=== PATIENT | female | born 1985 | race Caucasian/White ===

== ENCOUNTER → 2022-06-28 | Outpatient (CLI) | payer OTHER, SELFPAY ==
--- NOTE | 2022-06-28 12:02 | BI_ITS ---
MAMMOGRAPHY - BILATERAL SCREENING REASON FOR EXAM: Female, 37 years old. Routine annual screening examination. PERTINENT HISTORY: Mother with breast cancer. Grandmother with breast cancer. TECHNIQUE: Digital bilateral breast kwan (3D mammographic acquisition) in the CC and MLO projections. 2-D mediolateral oblique (MLO) and craniocaudad (CC) views of both breasts were obtained. CAD: Full Field Digital Mammography with Computer Added Detection was performed. COMPARISON: Comparison is made with prior abdomen examination 06/22/2021. FINDINGS: Breast Composition: The breasts are extremely dense, which lowers the sensitivity of mammography. There are no dominant masses or suspicious calcifications. Stable small benign appearing bilateral axillary lymph nodes. No other significant abnormalities are identified. There has been no significant change since the prior study. BI/SCRN MAMM (CAD)W/KWAN BILAT IMPRESSION: Stable bilateral screening mammogram. Yearly follow-up mammogram recommended. (A) ASSESSMENT CATEGORY: BIRADS Category 2: Benign. A letter regarding these results will be sent to the patient by the facility within 30 days. Approximately 10% of breast cancers are not detected by mammography. A normal mammogram should not delay biopsy of a clinically suspicious abnormality. [id number] Electronically Signed: Sravan Mandel MD at 11:02 EST ,
== END | disposition home or self-care (01) ==
LOC: OPBI 11:59
PROVIDERS: PCP Internal Medicine; Referring Provider Nurse Practitioner Women's Health; Visit Provider Nurse Practitioner Women's Health
DX: Z12.31 Encounter for screening mammogram for malignant neoplasm of breast (principal)
CPT/HCPCS: 77063; 77067

== ENCOUNTER → 2022-10-26 | Outpatient (CLI) | payer BC, SELFPAY ==
--- NOTE | 2022-10-26 12:49 | MRI_ITS ---
STUDY: BILATERAL BREAST MR WITHOUT AND WITH CONTRAST REASON FOR EXAM: Female, 37 years old. Family history of breast cancer. Screening. TECHNIQUE: Multi-sequence multi-echo imaging of both breasts was performed with a dedicated breast coil. T1-weighted and T2-weighted images were performed before the administration of contrast. T1-weighted images were also performed after the intravenous administration of 13cc of Dotarem contrast. COMPARISON: Mammograms dated October 26, 2022 and 10/17/2018. FINDINGS: RIGHT BREAST: Homogeneously dense breast tissue which may obscure small masses. Moderate background enhancement. No abnormal enhancing masses or areas of non-mass enhancement in the right breast. LEFT BREAST: Homogeneously dense breast tissue which may obscure small masses. Moderate background enhancement. No abnormal enhancing masses or areas of non-mass enhancement in the right breast. No enlarged or abnormal lymph nodes. No abnormality in the visualized regions of the chest or liver. MRI/Breast Bilateral W/O and W IMPRESSION: No abnormality on the breast MRI with contrast. Alternating screening mammogram and breast MRI with contrast: For surveillance would be appropriate. CATEGORY: BIRADS Category 2: Benign. A letter regarding these results will be sent to the patient by the facility within 30 days. Electronically Signed: Alek Shay, at 13:14 EST ,
== END | disposition home or self-care (01) ==
PROVIDERS: PCP Internal Medicine; Referring Provider Nurse Practitioner Women's Health; Visit Provider Nurse Practitioner Women's Health
DX: Z12.31 Encounter for screening mammogram for malignant neoplasm of breast (principal); Z80.3 Family history of malignant neoplasm of breast
CPT/HCPCS: 77049; A9575; A4216; C8908

== ENCOUNTER → 2023-02-22 | Outpatient (CLI) | payer BC, SELFPAY | END | disposition home or self-care (01) | PROVIDERS: PCP Internal Medicine; Referring Provider Physician Assistant; Visit Provider Physician Assistant | DX: R30.0 Dysuria (principal) | CPT/HCPCS: 87077; 87086; 87088; 87186 ==

== ENCOUNTER → 2023-04-07 | Outpatient (CLI) | payer BC, SELFPAY ==
[2023-04-07 12:09] LABS: Absolute Lymphocyte Count 1.94 X10^3/uL (0.83-4.51); Absolute Neutrophil Count 3.7 X10^3/uL (2.0-7.7); Basophil# 0.05 X10^3/uL; Basophil% 0.8 % (0-1); Eosinophil# 0.15 X10^3/uL; Eosinophils% 2.4 % (0-5); Hematocrit 41.1 % (37-47); Hemoglobin 13.1 g/dL (12.0-15.0); Lymphocyte # 1.94 X10^3/ul (0.83-4.51); Lymphocyte % 30.6 % (19-41); Mean Corp Hgb Conc 31.9 g/dL (32-36); Mean Corpuscular Hgb 28.7 pg (27.0-32.0); Mean Corpuscular Volume 89.9 fL (81-99); Mean Platelet Vol. 11.2 fl (6.2-12.0); Monocyte# 0.45 X10^3/uL; Monocyte% 7.1 % (0-10); NRBC Flagged by Analyzer 0 % (0-5); Neutrophil # 3.74 X10^3/uL (2.7-7.7); Neutrophil % 58.8 % (47-70); Platelet Count 264 K/mm3 (150-450); RBC Distribution Width CV 14.3 % (11.6-14.6); Red Blood Count 4.57 M/mm3 (4.2-5.4); White Blood Count 6.4 K/mm3 (4.4-11.0)
[2023-04-07 12:33] LABS: ALB/GLOB Ratio 0.8 RATIO (0.9-2.4); AST(SGOT) 12 U/L (15-37); Alanine Aminotransfer ALT/SGPT 18 U/L (13-56); Albumin, Serum 3.2 g/dL (3.2-5.0); Alkaline Phosphatase 76 U/L (45-117); Anion Gap 4 (5-15); BUN 8 mg/dL (7-18); BUN/Creat Ratio 9.5 RATIO (10-20); Calcium,Total 8.4 mg/dL (8.5-10.1); Chloride 107 mmol/L (98-107); Cholesterol 177 mg/dL (200); Creatinine, Serum 0.84 mg/dL (0.55-1.02); EST Glomerular Filtration Rate 81 mL/min (>60); Est Glom Filt Rate - Afr Amer 98 mL/min (>60); Globulin 3.9 g/dL (2.2-4.2); Glucose 93 mg/dL (74-106); High Density Lipoprotein 47 mg/dL; Potassium 3.8 mmol/L (3.5-5.1); Protein, Total 7.1 g/dL (6.4-8.2); Sodium Level 138 mmol/L (136-145); Thyroid Stim Hormone (TSH) 2.56 uIU/mL (0.358-3.74); Triglycerides 198 mg/dL; Very Low Density Lipoprotein 40 mg/dL (5-40)
[2023-04-07 12:40] LABS: Vitamin D,25 Hydroxy 43.8 ng/mL
[2023-04-12 00:07] LABS: Clam <0.10 kU/L (Class 0); Codfish <0.10 kU/L (Class 0); Corn <0.10 kU/L (Class 0); Egg, White <0.10 kU/L (Class 0); Milk (Cow) 0.11 kU/L (Class 0/I); Peanut <0.10 kU/L (Class 0); SCALLOP <0.10 kU/L (Class 0); SESAME SEED <0.10 kU/L (Class 0); Shrimp <0.10 kU/L (Class 0); Soybean <0.10 kU/L (Class 0); Walnut, (Food) <0.10 kU/L (Class 0); Wheat <0.10 kU/L (Class 0)
== END | disposition home or self-care (01) ==
LOC: BIMLAB 08:38
PROVIDERS: PCP Internal Medicine; Referring Provider Internal Medicine; Visit Provider Internal Medicine
DX: K90.49 Malabsorption due to intolerance, not elsewhere classified (principal); R00.2 Palpitations; E78.2 Mixed hyperlipidemia; Z86.39 Personal history of other endocrine, nutritional and metabolic disease
CPT/HCPCS: 36415; 80053; 80061; 82306; 84443; 85025; 86003

== ENCOUNTER → 2023-07-21 | Outpatient (CLI) | payer BC, SELFPAY ==
--- NOTE | 2023-07-21 08:49 | ECHOD_ITS ---
Reason For Study: palps Procedure This was a 2D Doppler, Color Flow transthoracic echocardiogram. Exam performed in department. Left Ventricle Normal LV size. Left ventricular systolic function is normal. The estimated ejection fraction is 64 %. Stage 1 diastolic dysfunction. No regional wall motion abnormalities noted. Right Ventricle Normal RV size. Normal systolic function. Atria Normal left atrium. Normal right atrium. Mitral Valve Normal mitral valve. Tricuspid Valve Normal tricuspid valve. Aortic Valve Normal aortic valve. Trisinus/trileaflet aortic valve. Pulmonic Valve Normal pulmonic valve. Great Vessels Normal aortic root. The pulmonary artery is normal size. Normal inferior vena cava. Pericardium/Pleural No pericardial effusion. MMode/2D Measurements & Calculations LVIDd: 4.3 cm IVSd: 0.92 cm Ao root diam: 2.7 cm LVIDs: 3.0 cm LVPWd: 0.99 cm RVDd: 2.8 cm FS: 31.5 % LAV(MOD-bp): 41.1 ml LVAd ap4: 25.5 cm2 LVAd ap2: 26.4 cm2 LAV(MOD-bp) Indexed: 24.0 ml/m2 LVLd ap4: 7.8 cm LVLd ap2: 8.3 cm LAV(MOD-sp2): 30.2 ml EDV(MOD-sp4): 69.0 ml EDV(MOD-sp2): 71.9 ml LAV(MOD-sp4): 48.8 ml EDV(sp4-el): 70.4 ml EDV(sp2-el): 71.5 ml LVAs ap4: 14.2 cm2 LVAs ap2: 15.1 cm2 LVLs ap4: 6.7 cm LVLs ap2: 7.1 cm ESV(MOD-sp4): 26.1 ml ESV(MOD-sp2): 27.0 ml ESV(sp4-el): 25.7 ml ESV(sp2-el): 27.3 ml EF(MOD-sp4): 62.1 % EF(MOD-sp2): 62.4 % EF(sp4-el): 63.5 % SV(MOD-sp4): 42.8 ml SV(MOD-sp2): 44.8 ml SV(sp4-el): 44.7 ml LA dimension(2D): 3.1 cm LA A4 area: 17.5 cm2 RA A4 area: 11.1 cm2 TAPSE: 2.0 cm Time Measurements MV dec time: 0.15 sec Doppler Measurements & Calculations MV E max rogers: 77.9 cm/sec Lat Peak E' Rogers: 10.1 cm/sec Med Peak E' Rogers: 10.1 cm/sec MV A max rogers: 83.1 cm/sec E/E' lat: 7.7 E/E' med: 7.7 MV E/A: 0.94 MV dec slope: 522.0 cm/sec2 Ao V2 max: 152.2 cm/sec LV V1 max: 122.2 cm/sec Ao max P.3 mmHg LV V1 max P.0 mmHg Ao V2 mean: 106.1 cm/sec LV V1 mean P.4 mmHg Ao mean P.1 mmHg LV V1 mean: 86.4 cm/sec Ao V2 VTI: 33.5 cm LV V1 VTI: 27.0 cm AV (velocity ratio): 0.80 PA V2 max: 103.3 cm/sec ECHO/Echo Complete Interpretation Summary Normal LV size. Left ventricular systolic function is normal. The estimated ejection fraction is 64 %. Stage 1 diastolic dysfunction. Ordering Physician: Kai Trimble Referring Physician: Hansa Brooks Performed By: Katerin Carpenter RDCS
--- NOTE | 2023-07-21 09:44 | BI_ITS ---
MAMMOGRAPHY - BILATERAL SCREENING REASON FOR EXAM: Female, 38 years old. Routine annual screening examination. PERTINENT HISTORY: Mother with breast cancer. Grandmother with breast cancer. TECHNIQUE: Digital bilateral breast kwan (3D mammographic acquisition) in the CC and MLO projections. 2-D mediolateral oblique (MLO) and craniocaudad (CC) views of both breasts were obtained. CAD: Full Field Digital Mammography with Computer Added Detection was performed. COMPARISON: Comparison is made with prior study dated June 28, 2022 and prior MRI of the breasts dated October 26, 2022. FINDINGS: Breast Composition: The breasts are extremely dense, which lowers the sensitivity of mammography. There are no dominant masses or suspicious calcifications. Stable small bilateral axillary lymph nodes. No other significant abnormalities are identified. There has been no significant change since the prior study. BI/SCRN MAMM (CAD)W/KWAN BILAT IMPRESSION: Stable bilateral screening mammogram. Yearly follow-up mammogram recommended. (A) ASSESSMENT CATEGORY: BIRADS Category 2: Benign. A letter regarding these results will be sent to the patient by the facility within 30 days. Approximately 10% of breast cancers are not detected by mammography. A normal mammogram should not delay biopsy of a clinically suspicious abnormality. [id number] Electronically Signed: Sravan Mandel MD at 9:38 EST ,
== END | disposition home or self-care (01) ==
PROVIDERS: PCP Internal Medicine; Referring Provider Nurse Practitioner Women's Health; Visit Provider Internal Medicine Cardiovascular Disease
DX: Z12.31 Encounter for screening mammogram for malignant neoplasm of breast (principal); R00.2 Palpitations
CPT/HCPCS: 77063; 77067; 93306

== ENCOUNTER 2023-08-18 06:17 | Day surgery (SDC) | payer BC, SELFPAY ==
[2023-08-18 06:40] VITALS: BP 117/85; PULSE 82; RESP 16; TEMP 36.9; O2SAT 100; BMI 26.1
[2023-08-18] MEDS: Lactated Ringers 1,000 ML 15 ML IV (06:45)
--- NOTE | 2023-08-18 07:24 | PCM.HP.BLA ---
History and Physical Date of Admission: 08/18/23 Date of Service: 05/09/23 MR#: [id number] Acct: [id number] Name: GREY DC Rep #: [id number] : 1985 Provider: Dr. Marvin Lopez MD Age/Sex: 38/F Location: [facility] Status: Signed Intake Vital Signs 04/06/2308:59 05/09/2312:53 Height 5 ft 5 in 5 ft 3 in Weight: 150 lb 4 oz 150 lb BMI 25.0 26.5 BP 122/92 H 149/87 H Blood Pressure Location Lt brachial Rt brachial Position Sitting Sitting Respiration 18 16 Pulse 80 84 Pulse Source Monitor Monitor Temp 96.1 F L 97.3 F L Temp Source Temporal Tympanic Pulse Oximetry (%) 99 Oxygen Delivery Method room air Intake Visit Reasons: COLONOSCOPY Chief Complaint: establish care Allergies latex Allergy (Mild, Verified 05/09/23 12:54) Rashciprofloxacin [From Cipro] Allergy (Verified 05/09/23 12:54) Othergluten Adverse Reaction (Intermediate, Verified 05/09/23 12:54) Hives Medications cetirizine 10 mg capsule (Zyrtec) 10 mg PO DAILY PRN 09/12/22 [History Confirmed 05/09/23] levonorgestrel-ethinyl estradiol 0.1 mg-20 mcg tablet (Aviane) 1 tab PO QDAY #84 tabs 09/12/22 [Rx Confirmed 05/09/23] ibuprofen 200 mg capsule 200 mg PO Q6H PRN 12/29/22 [History Confirmed 05/09/23] albuterol sulfate 90 mcg/actuation aerosol inhaler gm inhalation 01/23/23 [History Confirmed 05/09/23] PFSH Medical History Allergies Anemia Asthma Colonoscopy planned (07/28/18) Family history of breast cancer Family history of breast cancer in mother Family history of colon cancer in father Family history of ovarian cancer FHx: migraine headaches Hematuria Hives Hx: UTI (urinary tract infection) Irritable bowel syndrome Kidney stones Vitamin deficiency Surgical History History of delivery History of tubal ligation Hx of tonsillectomy Family History Father Heart disease Colon cancer, Onset Age: 43 Diabetes Myocardial infarction HypertensionMother Breast cancer, Onset Age: 50 Alcoholism Anxiety Cancer Depression STD (female) Suicide attemptGrandmother , due to breast cancer Breast cancer, Onset Age: 50 paternal grandmother Leukemia CancerGrandfather Heart disease Colon cancer, Onset Age: 50 paternal grandfather HypertensionGrandmother , due to breast cancer Breast cancer, Onset Age: 45 maternal grandmother CancerGrandfather , due to colon cancer Colon cancer, Onset Age: 62 Maternal Grandfather Myocardial infarction HypertensionBrother MelanomaSon SeizuresOther Arthritis CVA (cerebral vascular accident) High cholesterol Social History adopted: No household members: spouse and children housing: house number of children: 2 current occupational status: employed 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 They are referred for surgical consultation from Dr. Sawyer. Given her family history, patient has had prior colonoscopy in 2018. She states the results of the prior colonoscopy including finding of small internal hemorrhoids, but given her family history there was a recommended interval for follow-up was 5 years. They describe their bowel habits as occasionally characterized with loose stool, but more recently she has experienced constipation. They have approximately 1 bowel movement per day, but recently states that it has been 2 days without a bowel movement. Mrs. Dc denies any straining and tries to limit her toilet time. They initially denied noticing recent bleeding or dark stools, but later did confess that they have noticed some hemorrhoid bleeding with single spotting of the tissue paper 1-2 times per month. They do not regularly take fiber supplements since she has a gluten sensitivity and is unsure which products are made with wheat. They do consume significant fiber in their regular diet and she states that they are consciously transitioning her diet to all natural foods as a family. Patient, as above, does have a family history of colon cancer. She relates that her father was diagnosed at the age of 43 (in 2006) required a colon resection with a colostomy for 6 months before reversal. She states that he became symptomatic with some blood on his stool prior to this diagnosis. She initially characterizes this as a rectal cancer, but then states that it was a colon and rectal cancer. Beyond her father she notes a diagnosis of rectal cancer and paternal grandfather was diagnosed in his 50s. She states that he underwent surgery but no adjuvant therapy and lived into his 80s. (There also appears to be a strong history for breast cancer, familially?speaking). The patient's weight is stable. The patient is not prescribed anticoagulants/blood thinners. Relevant prior abdominal surgical history includes: 2 prior cesareans Patient does have a significant history of GERD and heartburn. Patient notes that she had roaring heartburn during her 2 pregnancies. She states that she went to a chiropractor who told her that she had a hiatal hernia, however, she notes no imaging scans were performed to confirm this diagnosis. She states that this is now something that she experiences a couple of times per month and uses [id number] Tums to relieve her discomfort. Lastly, she notes noting a round lump sensation after periods of heartburn that persist for several days after the heartburn is relieved. She has no prior history of EGD. Outside of a GI perspective, patient is currently under work-up for SVT. She states she has a history of palpitations and underwent ambulatory telemetry where she was found to have a run of SVT. She is due to meet with cardiology next week. ROS General General: No weight change, appetite, fatigue, colon cancer, breast cancer or weakness HEENT HEENT: No difficulty swallowing, eye injury, eye surgery, swollen glands or hoarseness Endo Endocrine: No thyroid disease, diabetes mellitus, thyroid cancer, Hair loss, heat intolerance or cold intolerance Skin Skin: No rash or changing moles Breast Breast: No left breast lump, right breast lump, nipple discharge, breast pain, abnormal mammogram, abnormal US or breast enlargement Musc Musculoskeletal: Yes back problems Cardio Cardiovascular: No murmur, pacemaker, heart disease, atrial fibrillation, high blood pressure, heart attack, heart stent, palpitations, shortness of breat with exertion or chest pain Psych Psychiatric: No depression, anxiety or hearing voices Resp Respiratory: No shortness of breath, No sleep apnea, No cough, No COPD, Yes asthma, No emphysema and No wheezing Gastro Gastrointestinal: No abdominal pain, No nausea or vomiting, Yes diarrhea, Yes constipation, No blood in stool, Yes acid reflux, No hemorrhoids, Yes ulcers, No gallbladder problem and No black,tarry stools Max Hematologic: No blood thinners, No blood disorders, No bleeding, Yes anemia and No blood clots Neuro Neurologic: No system reviewed and no additional complaints, except as documented, No as per HPI, No abnormal gait, No abnormal hearing, No abnormal movements, No abnormal speech, No behavioral changes, No burning sensations, No confusion, No convulsions, No disequilibrium, No dizziness, No localized weakness, No frequent falls, No headache(s), No lack of coordination, No loss of vision, No memory loss, No numbness, No other visual disturbances, No radicular pain, No restless legs, No sensory deficit, No syncope, No tingling, No tremor(s), No weakness and No other Exam Const General: cooperative, healthy appearing, comfortable and no acute distress Resp Effort & Inspection: normal respiratory effort Auscultation: no rales, no rhonchi and no wheezes Cardio Other: Patient appears to have intermittent PACs but otherwise in regular and rhythm GI Other: Normal habitus, umbilical piercing present, no other scars, nondistended, soft, nontender to palpation x4 quadrants Assessment and Plan Assessment and Plan (1) Family history of colon cancer: Plan: Patient is a 38-year-old female who began screening colonoscopies 5 years ago given her history of familial colon cancers in both her father and paternal grandfather?diagnosed at 43 and 50, respectively. Patient states that her colonoscopy was unremarkable save for finding of small internal hemorrhoids. Overall, she notes that her bowel habits have been relatively normal but experiences occasional constipation and diarrhea. She also admits to some spotting from what she believes is hemorrhoids when she experiences periods of constipation. Unfortunately the official records from patient's prior colonoscopy are not immediately available so we will seek these records prior to completing a updated screening colonoscopy. Patient wishes to undergo colonoscopy over the winter break so we will plan to use the interval time to obtain these records and follow-up on her cardiology evaluation for SVT. Given her history of constipation I have requested a 2-day bowel prep. (2) GERD (gastroesophageal reflux disease): Status: Acute Comment: Patient complains of significant heartburn and reflux symptoms. She was previously told she may have a hiatal hernia, however, she denies any prior imaging to further evaluate this possibility. Given her symptoms she makes rather regular use of [id number] antacids and specifically requests an upper scope to evaluate this issue further to see if she requires additional medical management. I did discuss with her the physiology behind hiatal hernias and the need to separate mealtime from bedtime. Hand drawings were used to try to illustrate these points. Plan: ? Diagnostic EGD under local MAC with colonoscopy proposed above I have examined the patient the following changes are noted: Mrs. Dc reports that overall things have trended in a positive direction for since our last visit in April of this year. She does confirm that she has been diagnosed with paroxysmal SVT and is due for an ablation procedure this summer. Regarding her GI health, however, she still describes a globus sensation when swallowing, but reports that her reflux is better now that she has intentionally begun avoiding eating close to bedtime. She also is pleased to report that her constipation issues are largely resolved after being diligent about incorporating more water. She confirms that she completed prep and dissipation of today's procedure and that her output is now clear. We will proceed for EGD and update screening colonoscopy in this high risk patient as discussed above.
--- NOTE | 2023-08-18 07:30 | IMM_PTH ---
PATIENT: GREY RIZO LOC: EN U#:[id number] AGE/SX: 38/F ROOM: RE08/18/[address]: Dr. Marvin Lopez MD : 1985 BED: DIS: 08/18/2023 SPEC #: [id number] RECD: 08/18/23 13:52 STATUS: MISSAEL RETee #: [id number] CHI: 08/18/23 07:[address]: Mravin Lopez DEPT: IMMUNOHISTOCHEMISTRY RECD BY: Ryann Fonseca ENTERED: 08/18/23 13:53 SP TYPE: IMMUNO OTHR DR: Dr. Mita Sawyer MD Tissues: A - Stomach, NOS Procedures: H Pylori (initial) PHYSICIAN & INSTITUTION [place] [id number] SPECIMEN INFORMATION: Tissue Source: A - Antrum Clinical Info: Family history of colon cancer Specimen Number: [id number] CPT code: 93196 METHODOLOGY: Deparaffinized sections of prefer/formalin-fixed tissue or PAP/DQ stained slides are incubated with monoclonal/polyclonal antibodies/oligonucleotide probes. Localization is made via biotin free immunoperoxidase method. Appropriate controls are performed and reacted as expected. Results on target cell population are indicated in the following table: RESULTS: ANTIBODY / CLONE RESULT Block A H Pylori (polyclonal) negative These tests were developed and their performance characteristics determined by [facility]. They may not have been cleared or approved by the U.S. Food and Drug Administration. The FDA has determined that such clearance or approval is not necessary. The above immunohistochemical/dualISH markers are ordered and reviewed by the Pathologist. INTERPRETATION: A. Antrum, biopsy: Negative for Helicobacter pylori organisms. SJ:lai 08/24/2023
--- NOTE | 2023-08-18 07:30 | COLBX_PTH ---
PATIENT: GREY RIZO LOC: TOY U#:[id number] AGE/SX: 38/F ROOM: RE08/18/[address]: Dr. Marvin Lopez MD : 1985 BED: DIS: 08/18/2023 SPEC #: [id number] RECD: 08/18/23 12:29 STATUS: MISSAEL EULALIO #: [id number] CHI: 08/18/23 07:[address]: Marvin Lopez DEPT: SURGICAL PATHOLOGY RECD BY: Pattie Mondragon ENTERED: 08/18/23 12:31 SP TYPE: COLON BX OTHR DR: Dr. Mita Sawyer MD Tissues: A - Gastric mucous membrane B - Gastric mucous membrane C - Gastric mucous membrane D - Esophageal mucous membrane E - Rectum, NOS F - Sigmoid colon biopsy Procedures: Special Stain Group II Surgery Specimen Level IV Alcian Blue/PAS (control) HEADER OPERATION: Colonoscopy with biopsy, EGD with biopsy and polypectomy PRE-OP DIAGNOSIS: Family history of colon cancer TISSUE SUBMITTED: A - Antrum biopsy for H. pylori and path, B - Gastric polyp of fundus biopsy, C - Gastric polyp of the body biopsy and polypectomy, D - Gastroesophageal junction biopsy, E - Rectal biopsy, F - Sigmoid polyp biopsy x2 MICROSCOPIC DIAGNOSIS A. Antrum, biopsy: Mild gastritis. See microscopic description and comment. B. Gastric polyp of fundus, biopsy: Fundic gland polyp. C. Gastric polyp of body, biopsy and polypectomy: Fragments of fundic gland polyp. D. Gastroesophageal junction, biopsy: Fragments of gastroesophageal mucosa with chronic inflammation. Intestinal metaplasia (goblet cell metaplasia) not identified. See comment. E. Rectal biopsy: A fragment of colonic mucosa, no pathologic diagnosis. F. Sigmoid polyp x2, biopsy: Fragments of colonic mucosa, no pathologic diagnosis. SJ:lai 08/22/2023 COMMENT A. The results of immunohistochemistry for Helicobacter pylori will be reported separately ([id number]). D. Alcian blue/PAS stain with matched control is used in the evaluation of the specimen. The specimen predominantly consists of gastric mucosa. MICROSCOPIC DESCRIPTION Slides are reviewed. A. The specimen shows fragments of gastric mucosa with chronic inflammatory cell infiltrates in the lamina propria consisting of lymphocytes and plasma cells, consistent with mild chronic gastritis. GROSS DESCRIPTION A - Received in fixative is one container labeled with the patient's name and designated antrum biopsy. The specimen consists of two irregular fragments of light eugene soft tissue that in aggregate measure 0.4 x 0.3 x 0.1 cm. The specimen is totally submitted in one cassette. B - Received in fixative is one container labeled with the patient's name and designated gastric polyp of fundus biopsy. The specimen consists of one irregular fragment of light eugene soft tissue that measures 0.3 x 0.3 x 0.1 cm. The specimen is totally submitted in one cassette. C - Received in fixative is one container labeled with the patient's name and designated gastric polyp of body biopsy and polypectomy. The specimen consists of multiple irregular fragments of light eugene soft tissue that in aggregate measure 1.0 x 0.8 x 0.1 cm. The specimen is totally submitted in one cassette. D - Received in fixative is one container labeled with the patient's name and designated GE junction biopsy. The specimen consists of two irregular fragments of light eugene soft tissue that in aggregate measure 0.5 x 0.3 x 0.1 cm. The specimen is totally submitted in one cassette. E - Received in fixative is one container labeled with the patient's name and designated rectal biopsy. The specimen consists of one irregular fragment of light eugene soft tissue that measures 0.2 x 0.2 x 0.1 cm. The specimen is totally submitted in one cassette. F - Received in fixative is one container labeled with the patient's name and designated sigmoid colon polyp biopsy. The specimen consists of multiple irregular fragments of light eugene soft tissue that in aggregate measure 1.0 x 0.3 x 0.1 cm. The specimen is totally submitted in one cassette. / SJ:rg 08/18/2023 TC:3 [facility]: [id number] [phone], [id number]
[2023-08-18 08:45] VITALS: BP 107/61; BP 117/85; PULSE 67; RESP 14; TEMP 36.5; O2SAT 100
[2023-08-18 08:50] VITALS: BP 100/72; BP 117/85; PULSE 67; RESP 14; O2SAT 99
--- NOTE | 2023-08-18 08:50 | OP.EGD_ITS ---
Patient Name: Parisa Dc Procedure Date: 08/18/2023 7:15 AM Date of : 1985 Age: 38 Procedure: Upper GI endoscopy Indications: Esophageal dysphagia, Suspected esophageal reflux, Globus sensation Providers: Marvin Lopez MD Referring MD: Mita Sawyer Md Medicines: See the Anesthesia note for documentation of the administered medications Patient Profile: Patient has symptoms of chronic dysphagia. Patient has symptoms of chronic throat burning. Complications: No immediate complications. Estimated blood loss: Minimal. Procedure: Pre-Anesthesia Assessment: - The heart rate, respiratory rate, oxygen saturations, blood pressure, adequacy of pulmonary ventilation, and response to care were monitored throughout the procedure. After obtaining informed consent, the endoscope was passed under direct vision. Throughout the procedure, the patient's blood pressure, pulse, and oxygen saturations were monitored continuously. The Colonoscope was introduced through the mouth, and advanced to the second part of duodenum. The upper GI endoscopy was accomplished without difficulty. The patient tolerated the procedure well. Scope In: 7:41:22 AM Scope Out: 8:02:07 AM Total Procedure Duration Time 0 hours 20 minutes 45 seconds Findings: The duodenal bulb, first portion of the duodenum and second portion of the duodenum were normal. No biopsies or other specimens were collected for this exam. Localized mildly erythematous mucosa without bleeding was found in the gastric antrum. Biopsies were taken with a cold forceps for histology. Estimated blood loss was minimal. Two 7 mm pedunculated polyps with no bleeding and no stigmata of recent bleeding were found in the gastric fundus and in the gastric body. The polyp was removed with a cold snare. Resection and retrieval were complete. Estimated blood loss was minimal. A small hiatal hernia was present. No biopsies or other specimens were collected for this exam. The Z-line was regular and was found 38 cm from the incisors. Biopsies were taken with a cold forceps for histology. Estimated blood loss was minimal. The exam was otherwise without abnormality. Impression: - Normal duodenal bulb, first portion of the duodenum and second portion of the duodenum. No specimens collected. - Erythematous mucosa in the antrum. Biopsied. - Two gastric polyps. Resected and retrieved. - Small hiatal hernia. No specimens collected. - Z-line regular, 38 cm from the incisors. Biopsied. - The examination was otherwise normal. Recommendation: - Discharge patient to home (via wheelchair). - Resume previous diet today. - Continue present medications. - Await pathology results. - Telephone my office for pathology results in 1 week. Procedure Code(s): --- Professional --- 61465, Esophagogastroduodenoscopy, flexible, transoral; with removal of tumor(s), polyp(s), or other lesion(s) by snare technique 00193, 59, Esophagogastroduodenoscopy, flexible, transoral; with biopsy, single or multiple Diagnosis Code(s): --- Professional --- K31.89, Other diseases of stomach and duodenum K31.7, Polyp of stomach and duodenum K44.9, Diaphragmatic hernia without obstruction or gangrene R13.14, Dysphagia, pharyngoesophageal phase F45.8, Other somatoform disorders CPT copyright 2021 [employer]. All rights reserved. The codes documented in this report are preliminary and upon fashion marketer review may be revised to meet current compliance requirements. Marvin Lopez MD 08/18/2023 8:49:21 AM This report has been signed electronically. Number of Addenda: 0 Note Initiated On: 08/18/2023 7:15 AM
--- NOTE | 2023-08-18 08:50 | OP.CCLET_ITS ---
08/18/2023 Mita Sawyer Md Re : Upper GI endoscopy procedure for Parisa Dc Dear Digna This procedure was performed on Friday, August 18, 2023. My impressions and recommendations are as follows: Impressions : - Normal duodenal bulb, first portion of the duodenum and second portion of the duodenum. No specimens collected. - Erythematous mucosa in the antrum. Biopsied. - Two gastric polyps. Resected and retrieved. - Small hiatal hernia. No specimens collected. - Z-line regular, 38 cm from the incisors. Biopsied. - The examination was otherwise normal. Recommendations : - Discharge patient to home (via wheelchair). - Resume previous diet today. - Continue present medications. - Await pathology results. - Telephone my office for pathology results in 1 week. My findings are described in the full procedure note, which is enclosed. If I can be of further assistance, please feel free to contact me at Doctor phone number(s): , Work: . Sincerely, Marvin Lopez MD 08/18/2023 8:49:21 AM This report has been signed electronically.
[2023-08-18 08:55] VITALS: BP 101/85; BP 117/85; PULSE 64; RESP 14; O2SAT 100
--- NOTE | 2023-08-18 08:56 | OP.CCLET_ITS ---
08/18/2023 Mita Sawyer Md Re : Colonoscopy procedure for Parisa Dc Dear Digna This procedure was performed on Friday, August 18, 2023. My impressions and recommendations are as follows: Impressions : - Pseudopolyps in the rectum. Biopsied. - Three 1 to 3 mm, non-bleeding polyps in the sigmoid colon, removed with a cold biopsy forceps. Resected and retrieved. - The examination was otherwise normal on direct and retroflexion views. Recommendations : - Discharge patient to home (via wheelchair). - Resume previous diet today. - Continue present medications. - Await pathology results. - Telephone my office for pathology results in 1 week. - Repeat colonoscopy date to be determined after pending pathology results are reviewed for surveillance based on pathology results. My findings are described in the full procedure note, which is enclosed. If I can be of further assistance, please feel free to contact me at Doctor phone number(s): , Work: . Sincerely, Marvin Lopez MD 08/18/2023 8:55:58 AM This report has been signed electronically.
--- NOTE | 2023-08-18 08:56 | OP.COLON_ITS ---
Patient Name: Parisa Dc Procedure Date: 08/18/2023 8:02 AM Date of : 1985 Age: 38 Procedure: Colonoscopy Indications: Screening for colon cancer: Family history of colorectal cancer in distant relative(s) before age 60, Screening in patient at increased risk: Colorectal cancer in father before age 60 Providers: Marvin Lopez MD Referring MD: Mita Sawyer Md Medicines: See the Anesthesia note for documentation of the administered medications Patient Profile: Patient has symptoms of chronic dysphagia. Patient has symptoms of chronic throat burning. Last Colonoscopy: 5 years ago. Complications: No immediate complications. Estimated blood loss: Minimal. Procedure: Pre-Anesthesia Assessment: - The heart rate, respiratory rate, oxygen saturations, blood pressure, adequacy of pulmonary ventilation, and response to care were monitored throughout the procedure. - The heart rate, respiratory rate, oxygen saturations, blood pressure, adequacy of pulmonary ventilation, and response to care were monitored throughout the procedure. After I obtained informed consent, the scope was passed under direct vision. Throughout the procedure, the patient's blood pressure, pulse, and oxygen saturations were monitored continuously. The Colonoscope was introduced through the anus and advanced to the cecum, identified by appendiceal orifice and ileocecal valve. The colonoscopy was performed without difficulty. The patient tolerated the procedure well. The quality of the bowel preparation was good. Scope In: 8:05:16 AM Scope Withdrawal Time 0 hours 22 minutes 14 seconds Scope Out: 8:35:22 AM Total Procedure Duration Time 0 hours 30 minutes 6 seconds Findings: anal papilla, No biopsies or other specimens were collected for this exam. Localized pseudopolyps were found in the rectum. Biopsies were taken with a cold forceps for histology. Estimated blood loss was minimal. Three sessile, non-bleeding polyps were found in the sigmoid colon. The polyps were 1 to 3 mm in size. These polyps were removed with a cold biopsy forceps. Resection and retrieval were complete. Estimated blood loss was minimal. The exam was otherwise without abnormality on direct and retroflexion views. Impression: - Pseudopolyps in the rectum. Biopsied. - Three 1 to 3 mm, non-bleeding polyps in the sigmoid colon, removed with a cold biopsy forceps. Resected and retrieved. - The examination was otherwise normal on direct and retroflexion views. Recommendation: - Discharge patient to home (via wheelchair). - Resume previous diet today. - Continue present medications. - Await pathology results. - Telephone my office for pathology results in 1 week. - Repeat colonoscopy date to be determined after pending pathology results are reviewed for surveillance based on pathology results. Procedure Code(s): --- Professional --- 80837, Colonoscopy, flexible; with biopsy, single or multiple Diagnosis Code(s): --- Professional --- K51.40, Inflammatory polyps of colon without complications D12.5, Benign neoplasm of sigmoid colon Z12.11, Encounter for screening for malignant neoplasm of colon Z80.0, Family history of malignant neoplasm of digestive organs CPT copyright 2021 [employer]. All rights reserved. The codes documented in this report are preliminary and upon display coordinator review may be revised to meet current compliance requirements. Marvin Lopez MD 08/18/2023 8:55:58 AM This report has been signed electronically. Number of Addenda: 0 Note Initiated On: 08/18/2023 8:02 AM
[2023-08-18 09:00] VITALS: BP 102/71; BP 117/85; PULSE 60; RESP 16; TEMP 36.9; O2SAT 100
[2023-08-18 09:11] VITALS: BP 117/85
== END 2023-08-18 09:32 | disposition home or self-care (01) ==
LOC: EN 06:21 → AC 06:21
PROVIDERS: PCP Internal Medicine; Referring Provider Internal Medicine; Visit Provider Surgery
PROC: 0DJD8ZZ Inspection of Lower Intestinal Tract, Via Natural or Artificial Opening Endoscopic (ICD-10-PCS; CPT 45378; principal; 2023-08-18 07:25)
DX: Z12.11 Encounter for screening for malignant neoplasm of colon (principal); J45.909 Unspecified asthma, uncomplicated; K29.70 Gastritis, unspecified, without bleeding; K63.5 Polyp of colon; K62.1 Rectal polyp; K31.7 Polyp of stomach and duodenum; K44.9 Diaphragmatic hernia without obstruction or gangrene; R13.10 Dysphagia, unspecified; K31.89 Other diseases of stomach and duodenum; K21.9 Gastro-esophageal reflux disease without esophagitis; Z87.891 Personal history of nicotine dependence; Z79.899 Other long term (current) drug therapy; Z80.0 Family history of malignant neoplasm of digestive organs
CPT/HCPCS: 45380; 43239; 43251; 88305; 88313; 88342; J7120; J2405

== ENCOUNTER → 2023-09-19 | Outpatient (CLI) | payer BC, SELFPAY ==
--- OUTSIDE RECORDS SUMMARY | 2023-09-19 16:48 | XMS RPT_ITS | CCD ---
Author Name Unknown Address [address] [place] [address] Organization [facility] Care Team Providers Care Signs Sales Representative Name Role Phone SHORTY WELLINGTON Unavailable Unavailable SHORTY WELLINGTON Unavailable Unavailable LAINEY YEPEZ Unavailable Unavailable GREY RUIZ Unavailable Unavailable KATIE BROCK, DR BRITTANY Greer Primary Care Physician Subha Devries Unavailable Unavailable Ayden Rodney Unavailable Unavailable Rox Mullins Unavailable Unavailable Ericka Jean Baptiste Unavailable Unavailable Allergies Allergy Classification Reported Allergen(s) Allergy Type Date of Onset Reaction(s) Facility (2 sources) Ciprofloxacin; Translations: [ciprofloxacin] Drug Allergy [facility] (2 sources) Gluten Food allergy [facility] (2 sources) Latex Allergy to substance [facility] Medications Current Medications Medication Drug Class(es) Dates Sig (Normalized) Sig (Original) herbal/nutritional product (2 sources) Start: 09-12-2020 herbal/nutritiona l product 0 Refill(s) Start Date: 09/12/20 Status: Ordered Ibuprofen (2 sources) Nonsteroidal Anti-inflammatory Drug Start: 09-12-2020 ibuprofen 0 Refill(s) Start Date: 09/12/20 Status: Ordered Completed/Discontinued Medications Medication Drug Class(es) Dates Sig (Normalized) Sig (Original) cephalexin 500 mg oral capsule (2 sources) Cephalosporin Antibacterial Start: 09-12-2020 End: 09-17-2020 cephalexin 500 mg oral capsule Dose : 500 mg = 1 cap(s), Oral, TID, # 15 cap(s), 0 Refill(s), Pharmacy: [facility] #[id number], UTI - Urinary tract infection, 160, cm, 09/12/20 11:59:00 EST, Height, 71.4, kg, 09/12/20 11:59:00 EST, Dosing Weight Start Date: 09/12/20 Stop Date: 09/17/20 Status: Ordered phenazopyridine hydrochloride 200 mg oral tablet (2 sources) Start: 09-12-2020 End: 09-14-2020 Pyridium 200 mg oral tablet Dose : 200 mg = 1 tab(s), Oral, TID, # 6 tab(s), 0 Refill(s), Pharmacy: [id number], UTI - Urinary tract infection, 160, cm, 09/12/20 11:59:00 EST, Height, kg, 09/12/20 11:59:00 EST, Dosing Weight Start Date: 09/12/20 Stop Date: 09/14/20 Status: Ordered Problems Active Problems Problem Classification Problem Date Documented Da te Episodic/Chronic Cardiac dysrhythmias (2 sources) Palpitations 12-27-2018 Episodic Disorders of lipid metabolism (2 sources) Hyperlipidemia 12-27-2018 Chronic Nutritional deficiencies (2 sources) Vitamin D deficiency 12-27-2018 Chronic Other gastrointestinal disorders (2 sources) Irritable bowel syndrome 12-27-2018 Chronic Unclassified (1 source) Unknown / UNK(Unknown) Onset: 03-06-2017 Urinary tract infections (2 sources) Urinary tract infectious disease 09-12-2020 Episodic Past or Other Problems Problem Classification Problem Date Documented Da te Episodic/Chronic Unclassified (1 source) VAG BLEEDIN IN EARLY // NO DX Onset: 03-06-2017 Results Test Name Value Interpretation Reference Range Facil ity Encounters Encounter Date Encounter Type Care Provider Facility Start: 06-22-2021 End: 06-22-2021 Patient encounter procedure DEBBIE ALEXANDER MD [facility] Start: 06-16-2021 End: 06-16-[address] BRITTANY WILSON MD [facility] Start: 03-06-2017 End: 03-07-2017 Emergency department patient visit SHORTY WELLINGTON Facility:[facility] Procedures Date Procedure Procedure Detail Performing Clinician Start: 10-14-[address] BRITTANY WILSON MD Start: 10-14-2017 Ligation of fallopian tube DR BRITTANY WILSON MD Start: 06-02-[address] BRITTANY WILSON MD Tonsillectomy DR BRITTANY Lobato Immunizations Immunization Date Immunization Notes Care Provider Fa cility 04-30-2016 tetanus toxoid, redu jitendra diphtheria toxoid, and acellular pertussis vaccine, adsorbed DR BRITTANY WILSON MD [facility] Payers Date Payer Category Payer Unknown [id number] Social History Date Type Detail Facility Start: 02-01-2019 Never smoked t obacco ([facility]) [facility] Sex Assigned At Female [facility] Medical Equipment Procedure Code Equipment Code Equipment Origin al Text Equipment Identifier Dates FDA Start: 10-14-2017 FDA Start: 10-14-2017 Evaluation + Plan note Radiology Note Date & Type Note Facility Evaluation + Plan note Future Appointments Appointment Date:06/22/2021 02:15:00 PM Scheduled Provider: Location:[facility] Appointment Type:[place] Mammogram Screening Bilateral w/ Dariusz Appointment Date:07/21/2021 12:15:00 PM [place]uled [place] [id number] Location:[facility] Appointment Type:PT [facility] Scheduled TestsMA Mammo Screening Bilateral w/ Dariusz 06/22/21 [facility] Evaluation + Plan note Note Date & Type Note Facility Evaluation + Plan note Future Appointments Appointment Date:07/21/2021 12:15:00 PM [place]uled Provider:[place] [id number] Location:[facility] Appointment Type:PT [facility] Hospital course Narrative Note Date & Type Note Facility Hospital course Narrative No data available for this section [facility] Hospital Discharge instructions Note Date & Type Note Facility Hospital Discharge instructions No data available for this section [facility] Summary Purpose Family History No Family History Records FoundNo Family History Records Found Advance Directives No Advanced Directives Records FoundNo Advanced Directives Records Found Additional Source Comments INFORMATION SOURCE (unrecogn ized section and content) DATE CREATED AUTHOR AUTHOR'S LUIS ATION 03/18/2022 [facility] ([place]) FOR RECORDS PERTAINING TO PATIENTS WHO ARE OR HAVE BEEN ENROLLED IN A CHEMICAL DEPENDENCY/SUBSTANCEABUSE PROGRAM, SOME INFORMATION MAY BE OMITTED. This clinical summary was aggregated from multiple sources. Caution should be exercised in using it in the provision of clinical care. This summary normalizes information from multiple sources, and as a consequence, information in this document may materially change the coding, format and clinical context of patient data. In addition, data may be omitted in some cases. CLINICAL DECISIONS SHOULD BE BASED ON THE PRIMARY CLINICAL RECORDS. [facility] [email or web address] [facility]. provides no warranty or guarantee of the accuracy or completeness of information in this document.
[2023-09-22 13:08] LABS: HPV APTIMA, High Risk Negative (Negative)
== END | disposition home or self-care (01) ==
LOC: LABSPEC 16:45
PROVIDERS: PCP Internal Medicine; Referring Provider Nurse Practitioner Women's Health; Visit Provider Nurse Practitioner Women's Health
DX: Z12.4 Encounter for screening for malignant neoplasm of cervix (principal)
CPT/HCPCS: 87624; 88175; G0145

== ENCOUNTER → 2024-01-05 | Outpatient (CLI) | payer BC, SELFPAY ==
--- NOTE | 2024-01-05 12:17 | MRI_ITS ---
STUDY: BILATERAL BREAST MR WITHOUT AND WITH CONTRAST REASON FOR EXAM: Female, 38 years old. Family hx of breast cancer, 31% risk of cancer. PLEASE COMPARE TO PRIOR MRI TECHNIQUE: Multi-sequence multi-echo imaging of both breasts was performed with a dedicated breast coil. T1-weighted and T2-weighted images were performed before the administration of contrast. T1-weighted images were also performed after the administration of IV 14ML CLARISCAN without complications. COMPARISON: MRI bilateral Breast dated 10/26/2022 FINDINGS: RIGHT BREAST: The breast tissue is The breasts are heterogenously dense, which may obscure small masses with moderate background enhancement. There are no abnormal enhancing masses or areas of non-mass enhancement in the right breast. LEFT BREAST: The breast tissue is The breasts are heterogenously dense, which may obscure small masses with moderate background enhancement. There are no abnormal enhancing masses or areas of non-mass enhancement in the left breast. There are no enlarged or abnormal lymph nodes. There is no abnormality in the visualized regions of the chest or liver. MRI/Breast Bilateral W/O and W IMPRESSION: No MR imaging evidence of malignancy within the bilateral breasts. CATEGORY: BIRADS Category 2: Benign. A letter regarding these results will be sent to the patient by the facility within 30 days. RECOMMENDATION: Continued alternating screening mammograms and breast MRI on an annual basis. Electronically Signed: Hammad Penny MD at 7:00 EDT ,
== END | disposition home or self-care (01) ==
LOC: MRI 12:00
PROVIDERS: PCP Internal Medicine; Referring Provider Nurse Practitioner Women's Health; Visit Provider Nurse Practitioner Women's Health
DX: Z12.31 Encounter for screening mammogram for malignant neoplasm of breast (principal); Z80.3 Family history of malignant neoplasm of breast
CPT/HCPCS: 77049; A9575; A4216; C8908

== ENCOUNTER → 2024-03-11 | Outpatient (CLI) | payer BC, SELFPAY ==
[2024-03-11 12:03] LABS: Absolute Lymphocyte Count 2.42 X10^3/uL (0.83-4.51); Absolute Neutrophil Count 4.4 X10^3/uL (2.0-7.7); Basophil# 0.06 X10^3/uL; Basophil% 0.8 % (0-1); Eosinophil# 0.26 X10^3/uL; Eosinophils% 3.3 % (0-5); Hematocrit 37.4 % (37-47); Hemoglobin 11.7 g/dL (12.0-15.0); Lymphocyte # 2.42 X10^3/ul (0.83-4.51); Lymphocyte % 30.4 % (19-41); Mean Corp Hgb Conc 31.3 g/dL (32-36); Mean Corpuscular Hgb 28.1 pg (27.0-32.0); Mean Corpuscular Volume 89.9 fL (81-99); Mean Platelet Vol. 11.3 fl (6.2-12.0); Monocyte# 0.75 X10^3/uL; Monocyte% 9.4 % (0-10); NRBC Flagged by Analyzer 0 % (0-5); Neutrophil # 4.44 X10^3/uL (2.7-7.7); Neutrophil % 55.8 % (47-70); Platelet Count 256 K/mm3 (150-450); RBC Distribution Width CV 13.6 % (11.6-14.6); RBC Distribution Width SD 44.8 fl (35.1-43.9); Red Blood Count 4.16 M/mm3 (4.2-5.4)
[2024-03-11 12:39] LABS: ALB/GLOB Ratio 0.9 RATIO (0.9-2.4); AST(SGOT) 12 U/L (15-37); Alanine Aminotransfer ALT/SGPT 17 U/L (13-56); Albumin, Serum 3.2 g/dL (3.2-5.0); Alkaline Phosphatase 79 U/L (45-117); Anion Gap 7 (5-15); BUN 15 mg/dL (7-18); BUN/Creat Ratio 18.8 RATIO (10-20); Calcium,Total 8.8 mg/dL (8.5-10.1); Chloride 105 mmol/L (98-107); Cholesterol 190 mg/dL (200); EST Glomerular Filtration Rate 86 mL/min (>60); Est Glom Filt Rate - Afr Amer 104 mL/min (>60); Globulin 3.7 g/dL (2.2-4.2); Glucose 95 mg/dL (74-106); High Density Lipoprotein 44 mg/dL; Potassium 4.1 mmol/L (3.5-5.1); Protein, Total 6.9 g/dL (6.4-8.2); Sodium Level 137 mmol/L (136-145); Triglycerides 238 mg/dL; Very Low Density Lipoprotein 48 mg/dL (5-40)
== END | disposition home or self-care (01) ==
LOC: BIMLAB 08:17
PROVIDERS: PCP Internal Medicine; Referring Provider Internal Medicine; Visit Provider Internal Medicine
DX: Z00.00 Encounter for general adult medical examination without abnormal findings (principal); R00.2 Palpitations; J45.20 Mild intermittent asthma, uncomplicated
CPT/HCPCS: 36415; 80053; 80061; 85025

== ENCOUNTER → 2024-09-24 | Outpatient (CLI) | payer OTHER, SELFPAY ==
--- NOTE | 2024-09-24 08:27 | BI_ITS ---
PROCEDURE: SCRN MAMM (CAD)W/KWAN BILAT REASON FOR EXAM: F, Age 39 y/o, mother with breast cancer. Grandmother with breast cancer. TECHNIQUE: Bilateral screening digital breast tomosynthesis with 2D and 3D images. Computer aided detection. COMPARISON: Prior exam(s) dating back to July 21, 2023.. FINDINGS: The breasts are extremely dense which lowers the sensitivity of mammography. Stable examination. Stable small bilateral axillary lymph nodes. No suspicious masses, areas of developing architectural distortion, or suspicious calcifications. BI/SCRN MAMM (CAD)W/KWAN BILAT IMPRESSION: BI-RADS 2: BENIGN. RECOMMEND ANNUAL MAMMOGRAPHIC SCREENING. Follow-up code: Routine Follow-up The patient will be notified of the results by letter. Reading Location: [place] [address]
== END | disposition home or self-care (01) ==
LOC: OPBI 08:26
PROVIDERS: PCP Internal Medicine; Referring Provider Nurse Practitioner Women's Health; Visit Provider Nurse Practitioner Women's Health
DX: Z12.31 Encounter for screening mammogram for malignant neoplasm of breast (principal)
CPT/HCPCS: 77063; 77067

== ENCOUNTER → 2024-09-27 | Outpatient (CLI) | payer OTHER, SELFPAY ==
--- NOTE | 2024-09-27 17:46 | US_ITS ---
PROCEDURE: PELVIC W/ TRANSVAGINAL REASON FOR EXAM: Pain COMPARISON: None. FINDINGS Retroflexed uterus with no focal masses. Bilateral ovaries are normal with preserved vascular flow. Endometrium is unremarkable measuring up to 8 mm. Nabothian cysts are seen. Mild fluid in the cul-de-sac is seen, likely physiologic. US/Pelvic w/ Transvaginal IMPRESSION: No suspicious sonographic abnormalities. [facility]
== END | disposition home or self-care (01) ==
LOC: US 17:16
PROVIDERS: PCP Internal Medicine; Referring Provider Nurse Practitioner Women's Health; Visit Provider Nurse Practitioner Women's Health
DX: R10.2 Pelvic and perineal pain (principal)
CPT/HCPCS: 76830; 76856

== ENCOUNTER → 2025-03-11 | Outpatient (CLI) | payer OTHER, SELFPAY ==
[2025-03-11 10:13] LABS: Hematocrit 32.5 % (37-47); Hemoglobin 10.1 g/dL (12.0-15.0); Immature Granulocytes Count 0.020 X10^3/uL (0.0-0.0); Mean Corp Hgb Conc 31.1 g/dL (32-36); Mean Corpuscular Volume 75.4 fL (81-99); Mean Platelet Vol. 10.2 fl (6.2-12.0); NRBC Flagged by Analyzer 0 % (0-5); Platelet Count 290 K/mm3 (150-450); RBC Distribution Width CV 17.0 % (11.6-14.6); RBC Distribution Width SD 46.5 fl (35.1-43.9); Red Blood Count 4.31 M/mm3 (4.2-5.4); White Blood Count 6.9 K/mm3 (4.4-11.0)
[2025-03-11 10:34] LABS: AST(SGOT) 18 U/L (<=31); Alanine Aminotransfer ALT/SGPT 11 U/L (<=34); Albumin, Serum 4.0 g/dL (3.5-5.0); Alkaline Phosphatase 83 U/L (35-104); Anion Gap 11 (5-15); BUN 11 mg/dL (4-19); BUN/Creat Ratio 14.8 RATIO (10-20); Calcium,Total 8.7 mg/dL (7.6-11.0); Carbon Dioxide 21.8 mmol/L (21.0-32.0); Chloride 104 mmol/L (98-108); Cholesterol 195 mg/dL (<=200); Globulin 3.1 g/dL (2.2-4.2); Glucose 92 mg/dL (70-99); Low Density Lipoprotein Calc. 120 mg/dL; Potassium 3.8 mmol/L (3.3-5.1); Triglycerides 104 mg/dL; Very Low Density Lipoprotein 21 mg/dL (5-40); cholesterol:hdl ratio screen 3.59
== END | disposition home or self-care (01) ==
LOC: MTLAB 08:59
PROVIDERS: PCP Internal Medicine; Referring Provider Internal Medicine; Visit Provider Internal Medicine
DX: Z00.00 Encounter for general adult medical examination without abnormal findings (principal); R00.2 Palpitations; J45.20 Mild intermittent asthma, uncomplicated; K29.70 Gastritis, unspecified, without bleeding; Z13.6 Encounter for screening for cardiovascular disorders
CPT/HCPCS: 36415; 80053; 80061; 85025

== ENCOUNTER → 2025-04-25 | Outpatient (CLI) | payer OTHER, SELFPAY ==
--- NOTE | 2025-04-25 17:36 | US_ITS ---
PROCEDURE: TRANSVAGINAL NON- 04/25/2025 REASON FOR EXAM: PELVIC PAIN TECHNIQUE: Procedure Code: USTVAG Modality: US Procedure: TRANSVAGINAL NON- COMPARISON: None FINDINGS: LMP: April 04, 2025. Measurements: Uterus: 7.7 cm x 5.3 cm x 4.3 cm with a volume of 91.16 mL Endometrial Thickness: 5.4 mm. Trilaminar in appearance. Right Ovary: 2.6 cm x 1.8 cm x 1.8 cm with a volume of 4.52 mL. Left Ovary: 2.8 cm x 3 cm x 1.77 with a volume of 7.58 mL. Uterus: Normal size, myometrial echotexture, and contour. Endometrium: Unremarkable. Right ovary: Normal size and echotexture. Left ovary: Normal size and echotexture. Other: No large pelvic mass identified. US/Transvaginal Non- IMPRESSION: NORMAL TRANSABDOMINAL and trans vaginal PELVIC ULTRASOUND. Reading Location: [place] [address]
--- OUTSIDE RECORDS SUMMARY | 2025-04-25 18:19 | XMS RPT_ITS | CCD ---
Author Organization [facility] Care Team Providers Care Lease Picker Name Role Phone ELIZSHORTY Unavailable Unavailable SHORTY WELLINGTON Unavailable Unavailable LAINEY YEPEZ Unavailable Unavailable GREY RUIZ Unavailable Unavailable KATIE BROCK, DR BRITTANY Greer Primary Care Physician Subha Devries Unavailable Unavailable RodneyAyden albert Unavailable Unavailable Rox Mullins Unavailable Unavailable Ericka Jean Baptiste Unavailable Unavailable Dr. Brittayn Sunshine Primary Care Provider Katie, Dr. Kay Referring Provider RENUKA Lee Attending Provider RENUKA Palma Attending Provider RENUKA Sánchez Attending Provider Cecilia MATHIAS, GT Santo Attending Provider Dr. Brittany Sunshine Primary Care Provider Dr. Brittany Sunshine Referring Provider RENUKA Lee Attending Provider RENUKA Palma Attending Provider Dr. Brittany Sunshine Primary Care Provider Dr. Brittany Sunshine Referring Provider Dr. Mita Sawyer Attending Provider [phone] Dr. Mita Sawyer Primary Care Provider Dr. Mita Sawyer Referring Provider Dr. Ashanti Hernandez Attending Provider [phone] Dr. Marvin Lopez Attending Provider Dr. Kai Trimble Attending Provider RENUKA Lee Attending Provider RENUKA Palma Attending Provider [facility] ARTERIAL EMBALMER, ARTERIAL EMBALMERZayC Randell Aranda Attending Provider Dr. Mita Sawyer Primary Care Provider Dr. Mita Sawyer Referring Provider [phone] Dr. Kai Trimble Referring Provider Dr. Marvin Lopez Other Provider Dr. Mita Sawyer Primary Care Provider Dr. Mita Sawyer Referring Provider [phone] Dr. Marvin Lopez Attending Provider [phone] GT Madden Attending Provider Cecilia ARTERIAL EMBALMER, ARTERIAL EMBALMERJeyson Santo Attending Provider [phone] Dr. Mita Sawyer MD Primary Care Provider [phone] Dr. Mita Sawyer MD Referring Provider Jeanette Encarnacion Attending Provider Dr. Mita Sawyer MD Attending Provider Debbie Jimenez Attending Unavailable [place], Mita Primary Care Unavailable [place], Mita Referring Unavailable Debbie Jimenez Attending Unavailable [place], Mita Primary Care Unavailable Digna, Mita Referring Unavailable Digna, Mita Primary Care Unavailable Jeanette Encarnacion Attending Unavail able [place], Mita Referring Unavailable [place], Mita Primary Care Unavailable [place], Mita Attending Unavailable Digna, Mita Referring Unavailable Debbie Jimenez Attending Unavailable Digna, Mita Primary Care Unavailable Digna, Mita Referring Unavailable [place], Mita Primary Care Unavailable Hansa Brooks NP Attending Unavailable Digna, Mita Referring Unavailable [place], Mita Attending Unavailable Digna, Mita Referring Unavailable [place], Mita Primary Care Unavailable [place] ARTERIAL EMBALMER, Hansa Referring Unavailable Digna, Mita Primary Care Unavailable [place] ARTERIAL EMBALMER, Hansa Attending Unavailable Digna, Mita Primary Care Unavailable [place] ARTERIAL EMBALMER, Hansa Attending Unavailable Cecilia ARTERIAL EMBALMER, Hansa Referring Unavailable [place] ARTERIAL EMBALMER, Hansa Attending Unavailable Cecilia ARTERIAL EMBALMER, Hansa Referring Unavailable Digan, Mita Primary Care Unavailable Allergies Allergy Classification Reported Allergen(s) Allergy Type Date of Onset Reaction(s) Facility (9 sources) Ciprofloxacin; Translations: [ciprofloxacin] Drug Allergy 3 Other [facility] (2 sources) Gluten Food allergy [facility] (11 sources) Latex; Translations: [latex] Allergy to substance 2 Rash [facility] (8 sources) Wheat gluten extract Drug Allergy 2 [facility] Comment on above: GI issues (1 source) Ciprofloxacin Drug Allergy 5 [facility] (1 source) Gluten Drug allergy (disorder) 5 [facility] Medications Current Medications Medication Drug Class(es) Dates Sig (Normalized) Sig (Original) [id number] 200 actuat albuterol 0.09 mg/actuat metered dose inhaler (13 sources) beta2-Adrenergic Agonist Start: 06-14-2023 End: 07-11-2024 Albuterol Sulfate 90 mcg/actuation HFA aerosol inhaler Active 2 NMA INHALATION Q4H as needed for shortness of breath or wheezing 8.5 1 July 11, 2024 1:08pm Start: 06-14-2023 take 1 puff(s) by in halation every four hours Albuterol Sulfate Active 2 PUFF INHALATION Q4H June 14, 2023 12:57pm Start: 06-14-2023 Albuterol Sulf ate Active 2 PUFF INHALATION June 14, 2023 12:57pm Start: 01-23-2023 End: 06-14-2023 Albuterol Sulfate 90 mcg/act uation HFA aerosol inhaler Discontinued NMA INHALATION January 23, 2023 12:00am June 14, 2023 1:57pm Start: 01-23-2023 End: 06-14-2023 Albuterol Sulfate Discontinu ed G INHALATION January 22, 2023 11:00pm June 14, 2023 12:57pm benzonatate 200 mg oral capsule (1 source) Non-narcotic Antitussive Start: 06-26-2023 take 200 mg by mouth three times daily Benzonatate Active 200 MG PO THREE TIMES A DAY June 25, 2023 11:00pm cetirizine hydrochloride 10 mg oral capsule (7 sources) Histamine-1 Receptor Antagonist Start: 09-12-2022 take 1 capsule by mouth once daily as needed Cetirizine (Zyrtec) 10 mg capsule Active 10 mg PO DAILY as needed for allergy symptoms September 12, 2022 1:00am herbal/nutritional product (2 sources) Start: 09-12-2020 herbal/nutritiona l product 0 Refill(s) Start Date: 09/12/20 Status: Ordered ibuprofen 200 mg oral capsule (8 sources) Nonsteroidal Anti-inflammatory Drug Start: 12-29-2022 take 1 capsule by mouth every six hours as needed for pain Ibuprofen 200 mg capsule Active 200 mg PO EVERY 6 HOURS as needed for pain December 29, 2022 12:00am Start: 09-12-2020 ibuprofen 0 Re fill(s) Start Date: 09/12/20 Status: Ordered Completed/Discontinued Medications Medication Drug Class(es) Dates Sig (Normalized) Sig (Original) amoxicillin 500 mg oral tablet (11 sources) Penicillin-class Antibacterial Start: 02-15-2024 End: 02-25-2024 take 1 tablet by mouth every twelve hours Amoxicillin 500 mg tablet Discontinued 500 mg PO Q12H 20 10 0 February 15, 2024 12:00am February 24, 2024 12:00am February 25, 2024 12:05am Start: 09-16-2023 End: 09-21-2023 take 1 capsule by mouth twice daily Amoxicillin 500 mg capsule Discontinued 500 mg PO TWICE A DAY 10 5 0 September 16, 2023 1:00am September 20, 2023 1:00am September 21, 2023 1:05am Start: 12-29-2022 End: 01-08-2023 take 1 capsule by mouth three times daily Amoxicillin 500 mg capsule Discontinued 500 mg PO THREE TIMES A DAY 30 December 29, 2022 12:00am January 07, 2023 12:00am January 08, 2023 12:04am amoxicillin 875 mg / clavulanate 125 mg oral tablet (16 sources) Penicillin-class Antibacterial Start: 07-09-2024 End: 09-18-2024 Amoxicillin-Pot Clavulanate 875-125 mg tablet Discontinued 1 {tbl} PO TWICE A DAY 28 August 19, 2024 1:00am September 18, 2024 11:32am Start: 06-30-2023 End: 07-10-2023 Amoxicillin-Pot Clavulanate 875-125 mg tablet Discontinued 1 {tbl} PO Q12H 20 June 30, 2023 12:00am July 09, 2023 1:00am July 10, 2023 1:04am Acute sinusitis, unspecified Start: 06-30-2023 End: 07-10-2023 take 1 tablet by mouth every twelve hours Amoxicillin-Pot Clavulanate Discontinued 1 TABLET PO Q12H 20 June 29, 2023 11:00pm July 10, 2023 12:04am Start: 07-06-2022 End: 07-20-2022 Amoxicillin-Pot Clavulanate 875-125 mg tablet Discontinued 1 {tbl} PO TWICE A DAY July 06, 2022 1:00am July 20, 2022 4:44pm Start: 07-06-2022 End: 07-20-2022 take 1 tablet by mouth twice daily Amoxicillin-Pot Clavulanate Discontinued 1 TABLET PO TWICE A DAY July 06, 2022 12:00am July 20, 2022 3:44pm azithromycin 250 mg oral tablet (7 sources) Macrolide Antimicrobial Start: 07-31-2022 End: 08-10-2022 take 2 tablets by mouth once daily, then take 1 tablet by mouth once daily Azithromycin 250 mg tablet Discontinued 250 mg PO As Directed 11 July 31, 2022 1:00am August 09, 2022 1:00am August 10, 2022 1:03am take 2 tablet by mouth once daily x 1 days then take 1 tablet by mouth once daily thereafter cefdinir 300 mg oral capsule (6 sources) Cephalosporin Antibacterial Start: 01-23-2023 End: 01-23-2023 take 1 capsule by mouth twice daily Cefdinir 300 mg capsule Discontinued 300 mg PO TWICE A DAY 20 January 23, 2023 12:00am February 01, 2023 12:00am January 23, 2023 11:08am cephalexin 500 mg oral capsule (2 sources) Cephalosporin Antibacterial Start: 09-12-2020 End: 09-17-2020 cephalexin 500 mg oral capsule Dose : 500 mg = 1 cap(s), Oral, TID, # 15 cap(s), 0 Refill(s), Pharmacy: [id number], UTI - Urinary tract infection, 160, cm, 09/12/20 11:59:00 EST, Height, 71.4, kg, 09/12/20 11:59:00 EST, Dosing Weight Start Date: 09/12/20 Stop Date: 09/17/20 Status: Ordered dexamethasone 6 mg oral tablet (7 sources) Corticosteroid Start: 07-20-2022 End: 07-31-2022 take 1 tablet by mouth once daily Dexamethasone 6 mg tablet Discontinued 6 mg PO DAILY July 20, 2022 1:00am July 31, 2022 12:47pm doxycycline hyclate 100 mg oral capsule (8 sources) Tetracycline-class Drug Start: 10-28-2023 End: 11-07-2023 take 1 capsule by mouth twice daily Doxycycline Hyclate 100 mg capsule Discontinued 100 mg PO TWICE A DAY 20 October 28, 2023 1:00am November 06, 2023 12:00am November 07, 2023 12:07am Start: 01-23-2023 End: 02-02-2023 take 1 capsule by mouth twice daily Doxycycline Hyclate 100 mg capsule Discontinued 100 mg PO TWICE A DAY 20 January 23, 2023 12:00am February 01, 2023 12:00am February 02, 2023 12:04am Acute sinusitis, unspecified Levonorgestrel-Ethinyl Estrad (9 sources) Progestin, Estrogen, Progestin-containing Intrauterine Device Start: 11-02-2023 End: 11-27-2023 take 1 tablet by mouth once daily Levonorgestrel-Ethinyl Estrad 0.1-20 mg-mcg tablet Discontinued 0 .ROUTE .COMPLEX 84 0 November 02, 2023 11:21am November 27, 2023 10:16am take 1 tablet by mouth once daily Start: 09-12-2022 End: 11-02-2023 take 1 tablet by mouth once daily Levonorgestrel-Ethinyl Estrad (Aviane) 0.1-20 mg-mcg tablet Discontinued 1 {tbl} PO daily 84 September 12, 2022 1:00am November 02, 2023 11:21am Start: 09-12-2022 take 1 tablet by nader th once daily Levonorgestrel-Ethinyl Estrad (Aviane) 0.1-20 mg-mcg tablet Active 1 TABLET PO daily September 12, 2022 1:00am Start: 09-12-2022 take 1 tablet by nader th once daily Levonorgestrel-Ethinyl Estrad (Aviane) 0.1-20 mg-mcg tablet Active 1 TABLET PO daily September 12, 2022 12:00am fluconazole 150 mg oral tablet (2 sources) Azole Antifungal Start: 02-15-2024 End: 03-04-2024 Fluconazole 150 mg tablet Discontinued 150 mg PO Every 3 Days 2 0 February 15, 2024 12:00am March 04, 2024 9:46am hydrocortisone 10 mg/ml / neomycin 3.5 mg/ml / polymyxin b [id number] unt/ml otic solution (2 sources) Aminoglycoside Antibacterial, Polymyxin-class Antibacterial, Corticosteroid Start: 11-27-2023 End: 12-07-2023 Audmrbhv-Hmvfduvoe-Ih 3.5-10,000-1 mg/mL-unit/mL-% solution Discontinued 4 NMA OTIC Q8H 10 10 0 November 27, 2023 12:00am December 06, 2023 12:00am December 07, 2023 12:05am to left ear methylPREDNISolone 4 mg oral tablet (3 sources) Corticosteroid Start: 10-28-2023 End: 11-27-2023 take 1 tablet by mouth once Methylprednisolone (Medrol (Owen)) 4 mg tablets,dose pack Discontinued 0 PO per package directions 21 October 28, 2023 1:00am November 27, 2023 10:16am URI PO PER PKG DIR for 6 days Start: 06-26-2023 take 1 tablet by mouth once Me thylprednisolone (Medrol (Owen)) 4 mg tablets,dose pack Active 0 PO per package directions June 25, 2023 11:00pm PO PER PKG DIR metoprolol tartrate 25 mg oral tablet (11 sources) beta-Adrenergic Subhash Start: 06-15-2023 End: 11-29-2024 take 1 tablet by mouth once daily as needed Metoprolol Tartrate 25 mg tablet Discontinued 25 mg PO DAILY as needed for SVT August 15, 2023 1:00am November 29, 2024 3:50pm nitrofurantoin, macrocrystals 25 mg / nitrofurantoin, monohydrate 75 mg oral capsule (5 sources) Nitrofuran Antibacterial Start: 03-01-2023 End: 03-06-2023 take 1 capsule by mouth every twelve hours at mealtime Nitrofurantoin Monohyd/M-Cryst (Macrobid) 100 mg capsule Discontinued 100 mg PO Q12H 10 5 0 March 01, 2023 12:00am March 05, 2023 12:00am March 06, 2023 12:03am must administer with a meal/food oseltamivir 75 mg oral capsule (2 sources) Neuraminidase Inhibitor Start: 09-18-2024 End: 09-23-2024 take 1 capsule by mouth twice daily Oseltamivir 75 mg capsule Discontinued 75 mg PO TWICE A DAY 10 5 0 September 18, 2024 1:00am September 22, 2024 1:00am September 23, 2024 1:11am pantoprazole 40 mg delayed release oral tablet (3 sources) Proton Pump Inhibitor Start: 08-23-2023 End: 11-27-2023 take 1 tablet by mouth once daily Pantoprazole (Protonix) 40 mg tablet,delayed release (DR/EC) Discontinued 40 mg PO DAILY 30 August 23, 2023 1:00am November 27, 2023 10:16am phenazopyridine hydrochloride 200 mg oral tablet (2 sources) Start: 09-12-2020 End: 09-14-2020 Pyridium 200 mg oral tablet Dose : 200 mg = 1 tab(s), Oral, TID, # 6 tab(s), 0 Refill(s), Pharmacy: [facility] #[id number], UTI - Urinary tract infection, 160, cm, 09/12/20 11:59:00 EST, Height, kg, 09/12/20 11:59:00 EST, Dosing Weight Start Date: 09/12/20 Stop Date: 09/14/20 Status: Ordered tobramycin 3 mg/ml ophthalmic solution (7 sources) Aminoglycoside Antibacterial Start: 07-06-2022 End: 07-20-2022 take 0.3 drop(s) into the eye(s) every two hours Tobramycin 0.3 % drops Discontinued 1 NMA OPHTHALMIC Q2H 5 0 July 06, 2022 1:00am July 20, 2022 4:44pm to affected eye while awake for 5 days Problems Active Problems Problem Classification Problem Date Documented Da te Episodic/Chronic Abdominal pain (4 sources) Pain in pelvis; Translations: [Pelvic and perineal pain] Onset: 5 09-24-2024 Episodic Comment on above: US, consider oriliss a Administrative/social admission (1 source) Persons encountering health services in other specified circumstances; Translations: [Other reasons for seeking consultation] 04-06-2023 Episodic Allergic reactions (10 sources) Urticaria; Translations: [Urticaria, unspecified] 04-06-2023 Episodic Asthma (9 sources) Asthma; Translations: [Unspecified asthma, uncomplicated] Onset: 5 04-06-2023 Chronic Comment on above: SEASONAL/PRN INHALER Calculus of urinary tract (5 sources) Kidney stone; Translations: [Calculus of kidney] 04-06-2023 Episodic Cardiac dysrhythmias (16 sources) Palpitations; Translations: [Intermittent palpitations] Onset: 5 12-27-2018 Episodic Deficiency and other anemia (5 sources) Anemia; Translations: [Anemia, unspecified] 04-06-2023 Episodic Comment on above: IN THE PAST Disorders of lipid metabolism (3 sources) Hyperlipidemia; Translations: [Mixed hyperlipidemia] 12-27-2018 Chronic Esophageal disorders (7 sources) Gastroesophageal reflux disease; Translations: [Gastro-esophageal reflux disease without esophagitis] 05-09-2023 Chronic Comment on above: Patient complains of significant heartburn and reflux symptoms. She was previously told she may have a hiatal hernia, however, she denies any prior imaging to further evaluate this possibility. Given her symptoms she makes rather regular use of [id number] antacids and specifically requests an upper scope to evaluate this issue further to see if she requires additional medical management. I did discuss with her the physiology behind hiatal hernias and the need to separate mealtime from bedtime. Hand drawings were used to try to illustrate these points. Gastritis and duodenitis (3 sources) Gastritis; Translations: [Gastritis, unspecified, without bleeding] Onset: 5 03-10-2025 Episodic Genitourinary symptoms and ill-defined conditions (12 sources) Blood in urine; Translations: [Hematuria, unspecified] 02-22-2023 Episodic Immunizations and screening for infectious disease (2 sources) Exposure to streptococcal pharyngitis; Translations: [Contact with and (suspected) exposure to other bacterial communicable diseases] 03-04-2024 Episodic Menstrual disorders (19 sources) Menorrhagia; Translations: [Excessive and frequent menstruation with regular cycle] 09-12-2022 Chronic Comment on above: Aviane/dc/lack of li erika. In past lysteda. Nutritional deficiencies (2 sources) Vitamin D deficiency 12-27-2018 Chronic Nutritional deficiencies (5 sources) Vitamin deficiency; Translations: [Vitamin deficiency, unspecified] 04-06-2023 Episodic Comment on above: iron and vitamin d Other and unspecified benign neoplasm (1 source) Lipoma (clinical); Translations: [Benign lipomatous neoplasm, unspecified] 03-10-2025 Episodic Other gastrointestinal disorders (7 sources) Irritable bowel syndrome; Translations: [Irritable bowel syndrome without diarrhea] 12-27-2018 Chronic Other gastrointestinal disorders (1 source) Malabsorption due to intolerance, not elsewhere classified; Translations: [Other specified intestinal malabsorption] 04-06-2023 Chronic Other nutritional; endocrine; and metabolic disorders (1 source) Personal history of other endocrine, nutritional and metabolic disease; Translations: [Personal history of nutritional deficiency] 04-06-2023 Episodic Other screening for suspected conditions (not mental disorders or infectious disease) (5 sources) Patient encounter status; Translations: [Encounter for screening for cardiovascular disorders] Onset: 5 03-10-2025 Episodic Other upper respiratory infections (2 sources) Sinusitis; Translations: [Chronic sinusitis, unspecified] 03-04-2024 Chronic Other upper respiratory infections (20 sources) Acute pharyngitis; Translations: [Acute pharyngitis, unspecified] 01-23-2023 Episodic Residual codes; unclassified (8 sources) Family history of malignant neoplasm of ovary; Translations: [Family history of malignant neoplasm of ovary] 06-01-2022 Episodic Comment on above: MGM Residual codes; unclassified (8 sources) Family history of breast cancer; Translations: [Family history of malignant neoplasm of breast] 10-31-2022 Episodic Comment on above: PGM Residual codes; unclassified (8 sources) Family history of malignant neoplasm of breast in first degree relative; Translations: [Family history of malignant neoplasm of breast] 09-12-2022 Episodic Comment on above: Dx age 50; Patient n egative BRCA genetic screen but overall breast CA risk at 31%Yearly mammogram and MRI alternating Q6mo Residual codes; unclassified (8 sources) Family history of cancer of colon; Translations: [Family history of malignant neoplasm of digestive organs] 06-01-2022 Episodic Comment on above: dx age 46 Residual codes; unclassified (4 sources) Family history of malignant neoplasm of breast; Translations: [Family history of malignant neoplasm of breast] 09-12-2022 Episodic Residual codes; unclassified (4 sources) Family history of malignant neoplasm of digestive organs; Translations: [Family history of malignant neoplasm of gastrointestinal tract] 09-12-2022 Episodic Residual codes; unclassified (1 source) Family history of malignant neoplasm of ovary; Translations: [Family history of malignant neoplasm of ovary] 09-12-2022 Episodic Residual codes; unclassified (5 sources) FH: Migraine; Translations: [Family history of epilepsy and other diseases of the nervous system] 04-06-2023 Episodic Residual codes; unclassified (1 source) Immunization not carried out because of patient refusal; Translations: [Vaccination not carried out because of patient refusal] 04-06-2023 Episodic Residual codes; unclassified (1 source) Medication refused; Translations: [Immunization not carried out because of patient refusal] 03-10-2025 Episodic Unclassified (1 source) Unknown / UNK(Unknown) Onset: 7 Urinary tract infections (2 sources) Urinary tract infectious disease 09-12-2020 Episodic Viral infection (8 sources) Disease caused by 2019-nCoV; Translations: [COVID-19] 09-12-2022 Episodic Past or Other Problems Problem Classification Problem Date Documented Da te Episodic/Chronic Fever of unknown origin (1 source) Fever, unspecified; Translations: [Fever, unspecified] Onset: 09-18-2024 Episodic Unclassified (1 source) VAG BLEEDIN IN EARLY // NO DX Onset: 03-06-2017 Results Test Name Value Interpretation Reference Range Facility Absolute lymphocyte countOrd ered By: Mita Sawyer on 03-11-2025 Lymphocytes Auto (Unsp spec) [#/Vol] 1.87 10*3/uL 0.83-4.51 [facility] Absolute neutrophil countOrd ered By: Mita Sawyer on 03-11-2025 Neutrophils (Bld) [#/Vol] 4.1 10*3/uL 2.0-7.7 [facility] Anion gap in Serum or Plasma Ordered By: Mita Sawyer on 03-11-2025 Anion gap [Moles/Vol] 11 mmol/L 01-09 [facility] Automated lymphocyte count a s percentage of total leukocytesOrdered By: Mita Sawyer on 03-11-2025 Lymphocytes/100 WBC Auto (Unsp spec) 27.0 % - [facility] BUN/creatinine ratioOrdered By: Mita Sawyer on 03-11-2025 Urea nitrogen/Creatinine [Mass ratio] 14.8 mg/mg 10- [facility] Basophil percentageOrdered B y: Mita Sawyer on 03-11-2025 Basophils/100 WBC (Bld) 0.9 % 0-1 [facility] Bilirubin, totalOrdered By: Mita Sawyer on 03-11-2025 Bilirubin [Mass/Vol] 0.31 mg/dL 0.00-1.30 [facility] CBC W/Diff, Automatedon 02-25 Absolute Lymph 1.87 X10 3/uL Normal 0.83-4.51 [facility] Comment on above: Performed By: #### L 100.0100, L500.4050, L500.4100 #### [facility] [address] [place], [place] [address]all nikolas. [place], [place], [id number] Absolute Neut 4.1 X10 3/uL Normal 2.0-7.7 [facility] Comment on above: Performed By: #### L 100.0100, L500.4050, L500.4100 #### [facility] [address] [place], [address] Basophils/100 WBC (Bld) 0.9 % Normal 0-1 [facility] Comment on above: Performed By: #### L 100.0100, L500.4050, L500.4100 #### [facility] [address] [place], [address] Eosinophils/100 WBC (Bld) 3.3 % Normal 0-5 [facility] Comment on above: Performed By: #### L 100.0100, L500.4050, L500.4100 #### [facility] [address] [place], [address] Erythrocyte distribution width (RBC) [Ratio] 17.0 % High 11.6-14.6 [facility] Comment on above: Performed By: #### L 100.0100, L500.4050, L500.4100 #### [facility] [address] [place], [address] Hematocrit (Bld) [Volume fraction] 32.5 % Low 37-47 [facility] Comment on above: Performed By: #### L 100.0100, L500.4050, L500.4100 #### [facility] [address] [place], [address] Hemoglobin (Bld) [Mass/Vol] 10.1 g/dL Low 12.0-15.0 [facility] Comment on above: Performed By: #### L 100.0100, L500.4050, L500.4100 #### [facility] [address] [place], [address] IG% 0.300 Normal 0.0-0.9 [facility] Comment on above: Result Comment: IG% - Immature Granulocytes (promyelocytes, myelocytes and metamyelocytes) > 1% indicates that a LEFT SHIFT is Present. Performed By: #### L 100.0100, L500.4050, L500.4100 #### [facility] [address] [place], [address] Lymphocytes/100 WBC (Bld) 27.0 % Normal 19-41 [facility] Comment on above: Performed By: #### L 100.0100, [id number], L500.4100 #### [facility] [address] [place], [address] MCH (RBC) [Entitic mass] 23.4 pg Low 27.0-32.0 [facility] Comment on above: Performed By: #### L 100.0100, [id number], L500.4100 #### [facility] [address] [place], [address] MCHC (RBC) [Mass/Vol] 31.1 g/dL Low 32-36 [facility] Comment on above: Performed By: #### L 100.0100, [id number], L500.4100 #### [facility] [address] [place], [address] MCV (RBC) [Entitic vol] 75.4 fL Low 81-99 [facility] Comment on above: Performed By: #### L 100.0100, [id number], [id number] #### [facility] [address] [place], [address] Monocytes/100 WBC (Bld) 9.2 % Normal 0-10 [facility] Comment on above: Performed By: #### L 100.0100, L500.4050, L500.4100 #### [facility] [address] [place], [address] Neutrophils/100 WBC (Bld) 59.3 % Normal 47-70 [facility] Comment on above: Performed By: #### L 100.0100, L500.4050, L500.4100 #### [facility] [address] [place], [address] Nucleated RBC (Bld) [#/Vol] 0 10*3/uL Normal 0-5 [facility] Comment on above: Performed By: #### L 100.0100, L500.4050, L500.4100 #### [facility] [address] [place], [address] Platelet mean volume (Bld) [Entitic vol] 10.2 fL Normal 6.2-12.0 [facility] Comment on above: Performed By: #### L 100.0100, L500.4050, L500.4100 #### [facility] [address] [place], [address] Platelets (Bld) [#/Vol] 290 10*3/uL Normal 150-450 [facility] Comment on above: Performed By: #### L 100.0100, L500.4050, L500.4100 #### [facility] [address] [place], [address] RBC (Bld) [#/Vol] 4.31 10*6/uL Normal 4.2-5.4 [facility] Comment on above: Performed By: #### L 100.0100, L500.4050, L500.4100 #### [facility] [address] [place], [address] RDW SD 46.5 fl High 35.1-43.9 [facility] Comment on above: Performed By: #### L 100.0100, L500.4050, L500.4100 #### [facility] [address] [place], [address] WBC (Bld) [#/Vol] 6.9 10*3/uL Normal 4.4-11.0 [facility] Comment on above: Performed By: #### L 100.0100, L500.4050, L500.4100 #### [facility] [address] [place], [address] Calculated very low density lipoprotein (VLDL) cholesterol measurementOrdered By: Mita [place] on 03-11-2025 Calculated very low density lipoprotein (VLDL) cholesterol measurement 21 mg/dL 5-40 [facility] Carbon dioxide, total [Moles /volume] in Central venous bloodOrdered By: Mita [place] on 03-11-2025 CO2 [Moles/Vol] 21.8 mmol/L 21.0-32.0 [facility] Chloride assayOrdered By: Al ycia [place] on 03-11-2025 Chloride [Moles/Vol] 104 mmol/L 98-108 [facility] Comprehensive Metabolic Prof ilon 03-11-2025 Albumin [Mass/Vol] 4.0 g/dL Normal 3.5-5.0 [facility] Comment on above: Performed By: #### L 100.0100, L500.4050, L500.4100 #### [facility] [address] [place], [address] Albumin/Globulin [Mass ratio] 1.3 {ratio} Normal 0.9-2.4 [facility] Comment on above: Performed By: #### L 100.0100, L500.4050, L500.4100 #### [facility] [address] [place], [address] ALK PHOS 83 U/L Normal 35-104 [facility] Comment on above: Performed By: #### L 100.0100, L500.4050, L500.4100 #### [facility] [address] [place], [address] ALT [Catalytic activity/Vol] 11 U/L Normal <=34 [facility] Comment on above: Performed By: #### L 100.0100, L500.4050, L500.4100 #### [facility] [address] [place], [address] AST [Catalytic activity/Vol] 18 U/L Normal <=31 [facility] Comment on above: Performed By: #### L 100.0100, L500.4050, L500.4100 #### [facility] [address] [place], [address] Bilirubin [Mass/Vol] 0.31 mg/dL Normal 0.00-1.30 [facility] Comment on above: Performed By: #### L 100.0100, L500.4050, L500.4100 #### [facility] [address] [place], [address] BUN/CRE 14.8 RATIO Normal 10-20 [facility] Comment on above: Performed By: #### L 100.0100, L500.4050, L500.4100 #### [facility] [address] [place], [address] Calcium [Mass/Vol] 8.7 mg/dL Normal 7.6-11.0 [facility] Comment on above: Performed By: #### L 100.0100, L500.4050, L500.4100 #### [facility] [address] [place], [address] Chloride [Moles/Vol] 104 mmol/L Normal 98-108 [facility] Comment on above: Performed By: #### L 100.0100, L500.4050, L500.4100 #### [facility] [address] [place], [address] CO2 [Moles/Vol] 21.8 mmol/L Normal 21.0-32.0 [facility] Comment on above: Performed By: #### L 100.0100, L500.4050, L500.4100 #### [facility] [address] [place], [address] Creatinine [Mass/Vol] 0.77 mg/dL Normal 0.70-1.20 [facility] Comment on above: Performed By: #### L 100.0100, L500.4050, L500.4100 #### [facility] [address] [place], [address] GAP 11 Normal 5-15 [facility] Comment on above: Performed By: #### L 100.0100, L500.4050, L500.4100 #### [facility] [address] [place], [address] GFR/1.73 sq M.predicted among non-blacks MDRD (S/P/Bld) [Vol rate/Area] 101 mL/min/{1.73_m2} Normal >60 [facility] Comment on above: Result Comment: mL/m in/1.73m2 CKD-EPI Creatinine Equation (2020) Performed By: #### L 100.0100, L500.4050, L500.4100 #### [facility] [address] [place], [address] Globulin (S) [Mass/Vol] 3.1 g/dL Normal 2.2-4.2 [facility] Comment on above: Performed By: #### L 100.0100, L500.4050, L500.4100 #### [facility] [address] [place], [address] Glucose [Mass/Vol] 92 mg/dL Normal 70-99 [facility] Comment on above: Performed By: #### L 100.0100, L500.4050, L500.4100 #### [facility] [address] [place], [address] Potassium [Moles/Vol] 3.8 mmol/L Normal 3.3-5.1 [facility] Comment on above: Performed By: #### L 100.0100, L500.4050, L500.4100 #### [facility] [address] [place], [address] Sodium [Moles/Vol] 137 mmol/L Normal 133-145 [facility] Comment on above: Performed By: #### L 100.0100, L500.4050, L500.4100 #### [facility] [address] [place], [address] T PROT 7.1 g/dL Normal 5.9-8.4 [facility] Comment on above: Performed By: #### L 100.0100, L500.4050, L500.4100 #### [facility] [address] [place], [address] Urea nitrogen [Mass/Vol] 11 mg/dL Normal 4-19 [facility] Comment on above: Performed By: #### L 100.0100, L500.4050, L500.4100 #### [facility] [address] [place], [address] Eosinophil percentageOrdered By: Mita Sawyer on 03-11-2025 Eosinophils/100 WBC (Bld) 3.3 % 0-5 [facility] Erythrocyte distribution wid th ratioOrdered By: Mita Sawyer on 03-11-2025 Erythrocyte distribution width (RBC) [Ratio] 17.0 % High 11.6-14.6 [facility] Erythrocyte distribution wid th standard deviationOrdered By: Mita Sawyer on 03-11-2025 Erythrocyte distribution width (RBC) [Ratio] 46.5 fl High 35.1-43.9 [facility] Glomerular filtration rate ( GFR) estimation/1.73 sq m using serum, plasma, or whole bOrdered By: Mita Sawyer on 03-11-2025 GFR/1.73 sq M.predicted among non-blacks MDRD (S/P/Bld) [Vol rate/Area] 101 mL/min/{1.73_m2} >60 [facility] Comment on above: mL/min/1.73m2 CKD-EP I Creatinine Equation (2020) Hematocrit Auto (Bld) [Volum e fraction]Ordered By: Mita Sawyer on 03-11-2025 Hematocrit (Bld) [Volume fraction] 32.5 % Low 37-47 [facility] Hemoglobin measurementOrdere d By: Mita Sawyer on 03-11-2025 Hemoglobin (Bld) [Mass/Vol] 10.1 g/dL Low 12.0-15.0 [facility] Immature granulocytes/100 WB C Auto (Bld)Ordered By: Mita Sawyer on 03-11-2025 Immature granulocytes/100 WBC (Bld) 0.300 % 0.0-0.9 [facility] Comment on above: IG% - Immature Granu locytes (promyelocytes, myelocytes and metamyelocytes) > 1% indicates that a LEFT SHIFT is Present. LDL calc ser/plasOrdered By: Mita Sawyer on 03-11-2025 Cholesterol in LDL [Mass/Vol] 120 mg/dL [facility] Comment on above: Sizzluzsxt=070-053 m g/dL & Higher Yytb=013 mg/dL or greater Laboratory - Chemistry and C hemistry - challengeOrdered By: Mita Sawyer on 03-11-2025 AST [Catalytic activity/Vol] 18 U/L <32 [facility] Lipid Profileon 03-11-2025 CHOL:HDL 3.59 Normal [facility] Comment on above: Performed By: #### L 100.0100, L500.4050, L500.4100 #### [facility] [address] [place], [address] Cholesterol [Mass/Vol] 195 mg/dL Normal <=200 [facility] Comment on above: Result Comment: Chol esterol level, Desirable <200 mg/dL Borderline high cholesterol 200-239 mg/dL High cholesterol >=240 mg/dL Recommendations of the NCEP Adult Treatment Panel for the following risk-cutoff thresholds for the [place] population. Performed By: #### L 100.0100, L500.4050, L500.4100 #### [facility] [address] [place], [address] Cholesterol in HDL [Mass/Vol] 54 mg/dL Normal [facility] Comment on above: Result Comment: Irene onal Cholesterol Education Program (NCEP) guidelines: <40 mg/dL: Low HDL-cholesterol (major risk factor for CHD) >= 60 mg/dL: High HDL-cholesterol (negative risk factor for CHD) HDL-cholesterol is affected by a number of factors, e.g. smoking, exercise, hormones, sex and age. Performed By: #### L 100.0100, L500.4050, L500.4100 #### [facility] [address] [place], [address] Cholesterol in LDL [Mass/Vol] 120 mg/dL Normal [facility] Comment on above: Result Comment: Bord rkhhsl=447-523 mg/dL Higher Pwjd=206 mg/dL or greater Performed By: #### L 100.0100, L500.4050, L500.4100 #### [facility] [address] [place], [address] Cholesterol in VLDL [Mass/Vol] 21 mg/dL Normal 5-40 [facility] Comment on above: Performed By: #### L 100.0100, L500.4050, L500.4100 #### [facility] [address] [place], [address] Triglyceride [Mass/Vol] 104 mg/dL Normal [facility] Comment on above: Result Comment: The drugs N-Acetylcysteine and Metamizole may falsely depress this assay. Normal range: <150 mg/dL Borderline High: 150-199 mg/dL High: 200-499 mg/dL Very High: >500 mg/dL Performed By: #### L 100.0100, L500.4050, L500.4100 #### [facility] [address] [place], [address] MCV (mean corpuscular volume ) determinationOrdered By: Mita Sawyer on 03-11-2025 MCV (RBC) [Entitic vol] 75.4 fL Low 81-99 [facility] Mean corpuscular hemoglobin (MCH) determinationOrdered By: Mita Sawyer on 03-11-2025 MCH (RBC) [Entitic mass] 23.4 pg Low 27.0-32.0 [facility] Mean corpuscular hemoglobin concentration (MCHC) determinationOrdered By: Mita Sawyer on 03-11-2025 MCHC (RBC) [Mass/Vol] 31.1 g/dL Low 32-36 [facility] Mean platelet volume determi nationOrdered By: Mita Sawyer on 03-11-2025 Platelet mean volume (Bld) [Entitic vol] 10.2 fL 6.2-12.0 [facility] Monocyte percentageOrdered B y: Mita Sawyer on 03-11-2025 Monocytes/100 WBC (Bld) 9.2 % 0-10 [facility] Neutrophil percentageOrdered By: Mita Sawyer on 03-11-2025 Neutrophils/100 WBC (Bld) 59.3 % 47-70 [facility] Nucleated red blood cell per centageOrdered By: Mita Sawyer on 03-11-2025 Nucleated RBC/100 WBC (Bld) [Ratio] 0 % 0-5 [facility] Platelet countOrdered By: Markus Sawyer on 03-11-2025 Platelets (Bld) [#/Vol] 290 10*3/uL 150-450 [facility] Potassium measurement (mass/ volume)Ordered By: Mita Sawyer on 03-11-2025 Potassium (Unsp spec) [Mass/Vol] 3.8 mmol/L 3.3-5.1 [facility] RBC Auto (Bld) [#/Vol]Ordere d By: Mita Sawyer on 03-11-2025 RBC (Bld) [#/Vol] 4.31 10*6/uL 4.2-5.4 [facility] Screening total cholesterol/ high density lipoprotein (HDL) cholesterol ratioOrdered By: Mita Sawyer on 03-11-2025 Cholesterol.total/Choles terol in HDL [Mass ratio] 3.59 {ratio} [facility] Serum creatinine measurement (mass/volume)Ordered By: Mita Sawyer on 03-11-2025 Creatinine [Mass/Vol] 0.77 mg/dL 0.70-1.20 [facility] Serum globulin measurementOr dered By: Mita Sawyer on 03-11-2025 Globulin (S) [Mass/Vol] 3.1 g/dL 2.2-4.2 [facility] Serum glucose measurement (m ass/volume)Ordered By: Mita Sawyer on 03-11-2025 Glucose [Mass/Vol] 92 mg/dL 70-99 [facility] Serum or plasma alanine rodriguez otransferase (ALT) measurementOrdered By: Mita Sawyer on 03-11-2025 ALT [Catalytic activity/Vol] 11 U/L <35 [facility] Serum or plasma albumin bernardo urement (mass/volume)Ordered By: Mita Sawyer on 03-11-2025 Albumin [Mass/Vol] 4.0 g/dL 3.5-5.0 [facility] Serum or plasma albumin/glob ulin mass ratioOrdered By: Mita Sawyer on 03-11-2025 Albumin/Globulin [Mass ratio] 1.3 {ratio} 0.9-2.4 [facility] Serum or plasma alkaline lawanda sphatase measurementOrdered By: Mita Sawyer on 03-11-2025 ALP [Catalytic activity/Vol] 83 U/L 35-104 [facility] Serum or plasma calcium bernardo urement (mass/volume)Ordered By: Mita Sawyer on 03-11-2025 Calcium [Mass/Vol] 8.7 mg/dL 7.6-11.0 [facility] Serum or plasma cholesterol in HDL measurement (mass/volume)Ordered By: Mita Sawyer on 03-11-2025 Cholesterol in HDL [Mass/Vol] 54 mg/dL >40 [facility] Comment on above: National Cholesterol Education Program (NCEP) guidelines:<40 mg/dL: Low HDL-cholesterol (major risk factor for CHD)>= 60 mg/dL: High HDL-cholesterol (negative risk factor for CHD)HDL-cholesterol is affected by a number of factors, e.g. smoking, exercise, hormones, sex and age. Serum or plasma cholesterol measurement (mass/volume)Ordered By: Mita Sawyer on 03-11-2025 Cholesterol [Mass/Vol] 195 mg/dL <201 [facility] Comment on above: Cholesterol level, D esirable <200 mg/dLBorderline high cholesterol 200-239 mg/dLHigh cholesterol >=240 mg/dLRecommendations of the NCEP Adult Treatment Panel for the following risk-cutoff thresholds for the [place] population. Serum or plasma urea nitroge n measurement (mass/volume)Ordered By: Mita Sawyer on 03-11-2025 Urea nitrogen [Mass/Vol] 11 mg/dL 4-19 [facility] Sodium levelOrdered By: Ismael Sawyer on 03-11-2025 Sodium [Moles/Vol] 137 mmol/L 133-145 [facility] Total proteinOrdered By: Tariq Sawyer on 03-11-2025 Protein [Mass/Vol] 7.1 g/dL 5.9-8.4 [facility] Triglycerides measurementOrd ered By: Mita Sawyer on 03-11-2025 Triglyceride [Mass/Vol] 104 mg/dL <199 [facility] Comment on above: The drugs N-Acetylcy steine and Metamizole may falsely depress this assay. Normal range: <150 mg/dLBorderline High: 150-199 mg/dLHigh: 200-499 mg/dLVery High: >500 mg/dL White blood cell (WBC) count Ordered By: Mita Sawyer on 03-11-2025 WBC (Bld) [#/Vol] 6.9 10*3/uL 4.4-11.0 [facility] Internal Medicine Office Vis yahir 03-06-2025 Internal Medicine Office Visit [facility] [address] [place] [address] [address] [place], [place] [address] OFFICE VISIT Date of Service: 03/10/25 MR#: [id number] Acct: [id number] Name: KRYSTYNA RIZOELLE JENIFER Rep #: [id number] : 1985 Provider: Dr. Mita taylor MD Age/Sex: 40/F Location: [facility] [place] Status: Signed Intake Vital Signs 03/04/24 09:49 09/24/24 08:57 11/29/24 09:17 03/10/25 09:28 Height 5 ft 3 in 5 ft 3 in 5 ft 3 in 5 ft 3 in Weight: 150 lb BMI 26.5 BP 110/70 Blood Pressure Location Lt brachial Position Sitting Respiration 16 Pulse 75 Pulse Source Monitor Temp 97.4 F L Temp Source Temporal Pulse Oximetry (%) 99 Intake Visit Reasons: YEARLY Chief Complaint: Annual Road Maker Required: No Accompanied by: Self Is patient in pain?: No Allergies latex Allergy (Mild, Verified 03/10/25 09:31) Rash ciprofloxacin (From Cipro) Allergy (Verified 03/10/25 09:31) Other gluten Adverse Reaction (Intermediate, Verified 03/10/25 09:31) Hives Medications ???Medication ???Instructions ???Recorded ???Confirmed ???Type cetirizine 10 mg capsule (Zyrtec) 10 mg PO DAILY PRN allergy sympto ms 09/12/22 03/10/25 History ibuprofen 200 mg capsule 200 mg PO Q6H PRN pain 12/29/22 History albuterol sulfate 90 mcg/actuation 2 puff inhalation Q4H PRN 03/10/25 Rx aerosol inhaler shortness of breath or wheezing #8.5 grams metoprolol tartrate 25 mg tablet 25 mg PO DAILY PRN SVT #30 tabs 03/10/25 Rx Nurse's Note: Yearly. Would like spot on back checked [facility] Medical History Depression Anxiety Alcohol use History of steroid therapy Migraine headache Injury of head and neck Dietary restriction Heartburn Leg cramps Former smoker History of Holter monitoring History of echocardiogram Cardiology follow-up encounter History of irregular heartbeat Colonoscopy planned (07/28/18) Vitamin deficiency Kidney stones Irritable bowel syndrome Hives FHx: migraine headaches Hx: UTI (urinary tract infection) Asthma Anemia Allergies Hematuria Family history of ovarian cancer Family history of colon cancer in father Family history of breast cancer Family history of breast cancer in mother Surgical History Hx of tonsillectomy History of tubal ligation History of delivery Family History Father Heart disease Colon cancer, Onset Age: 43 Diabetes Myocardial infarction Hypertension Mother Breast cancer, Onset Age: 50 Alcoholism Anxiety Cancer Depression STD (female) Suicide attempt Heart failure Hepatitis C Heart disease Grandmother , due to breast cancer Breast cancer, Onset Age: 50 paternal grandmother Leukemia Cancer Grandfather Heart disease Colon cancer, Onset Age: 50 paternal grandfather Hypertension Grandmother , due to breast cancer Breast cancer, Onset Age: 45 maternal grandmother Cancer Grandfather , due to colon cancer Colon cancer, Onset Age: 62 Maternal Grandfather Myocardial infarction Hypertension Brother Melanoma Son Seizures Other Arthritis CVA (cerebral vascular accident) High cholesterol Social History (Updated 03/10/25 @ 09:[address] Mita Sawyer MD) adopted: No household members: spouse and children housing: house number of children: 2 current occupational status: employed current occupation: [employer] pets and animals: Yes (1) pets and animals: dog(s) and farm animals sexually active: Yes Smoking Status: Former smoker quit date: 08/28/03 Tobacco: How many years used: 3 Electronic Cigarette Use: not used alcohol intake: current alcohol intake frequency: holidays/special occasions only substance use type: does not use diet: gluten free caffeine: Yes (2) Type: coffee and tea frequency: daily seatbelt use: always do you feel safe at home: Yes 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 1. Little interest or pleasure in doing things: not at all 2. Feeling down, depressed, or hopeless: not at all 3. Trouble falling or staying asleep, or sleeping too much: not at all 4. Feeling tired or having little energy: several days 5. Poor appetite or overeating: not at all 6. Feeling bad about yourself - or that you are a failure or have let yourself and your family down: not at all 7. Trouble concentrating on things, such as reading the newspaper or watching television: not at all 8. Moving or speaking so slowly that other people (more content not included)... Normal [facility] Cardiology Visit Reporton Cardiology Visit Report [facility] [address] [place] [address] OFFICE VISIT Date of Service: 11/29/24 MR#: [id number] Acct: [id number] Name: GREY RIZO Rep #: [id number] : 1985 Provider: RENUKA Cowart Age/Sex: 39/F Location[place] [facility] [place] Status: Signed HPI HPI History of Present Illness Details: Grey Rizo is a 39-year-old lady who presents to the office for a cardiovascular follow-up visit. She has no previous cardiac history who presents for evaluation of her palpitations. She first noticed it during her and she said that when she presented to the emergency room she was told that it was anxiety because she was and that she did not need any medication. She however has noticed this over the years and when she saw you in the primary care office she had a Holter monitor ordered. Her Holter monitor demonstrated 1 episode of narrow complex tachycardia with a rate of approximately 173 bpm. Pt notes that during her menstrual cycle she notes that she had palpitations and some chest discomfort. She has not needed to use her metoprolol. She does sometimes have fluttering for a few seconds, bears down, then it goes away. She has adjusted her diet. She is eating more a whole foods diet. She is now going to the gym. Intake Vital Signs 11/27/23 10:14 08/19/24 10:33 11/29/24 09:17 11/29/24 15:52 Height 5 ft 3 in 5 ft 3 in 5 ft 3 in Weight: 155 lb BMI 27.4 BP 134/91 H 138/80 H Blood Pressure Location Lt brachial Position Sitting Respiration 18 Pulse 84 Pulse Source Monitor Pulse Oximetry (%) 100 Intake Visit Reasons: [address] Required: No Is patient in pain?: No Allergies latex Allergy (Mild, Verified 11/29/24 15:17) Rash ciprofloxacin (From Cipro) Allergy (Verified 11/29/24 15:17) Other gluten Adverse Reaction (Intermediate, Verified 11/29/24 15:17) Hives Medications ???Medication ???Instructions ???Recorded ???Confirmed ???Type cetirizine 10 mg capsule (Zyrtec) 10 mg PO DAILY PRN allergy sympto ms 09/12/22 11/29/24 History ibuprofen 200 mg capsule 200 mg PO Q6H PRN pain 12/29/22 History albuterol sulfate 90 mcg/actuation 2 puff inhalation Q4H PRN 11/29/24 Rx aerosol inhaler shortness of breath or wheezing #8.5 grams metoprolol tartrate 25 mg tablet 25 mg PO DAILY PRN SVT #30 tabs 11/29/24 Rx Have you fallen in the past year?: Yes PFSH Medical History Depression Anxiety Alcohol use History of steroid therapy Migraine headache Injury of head and neck Dietary restriction Heartburn Leg cramps Former smoker History of Holter monitoring History of echocardiogram Cardiology follow-up encounter History of irregular heartbeat Colonoscopy planned (07/28/18) Vitamin deficiency Kidney stones Irritable bowel syndrome Hives FHx: migraine headaches Hx: UTI (urinary tract infection) Asthma Anemia Allergies Hematuria Family history of ovarian cancer Family history of colon cancer in father Family history of breast cancer Family history of breast cancer in mother Surgical History Hx of tonsillectomy History of tubal ligation History of delivery Family History Father Heart disease Colon cancer, Onset Age: 43 Diabetes Myocardial infarction Hypertension Mother Breast cancer, Onset Age: 50 Alcoholism Anxiety Cancer Depression STD (female) Suicide attempt Heart failure Hepatitis C Heart disease Grandmother , due to breast cancer Breast cancer, Onset Age: 50 paternal grandmother Leukemia Cancer Grandfather Heart disease Colon cancer, Onset Age: 50 paternal grandfather Hypertension Grandmother , due to breast cancer Breast cancer, Onset Age: 45 maternal grandmother Cancer Grandfather , due to colon cancer Colon cancer, Onset Age: 62 Maternal Grandfather Myocardial infarction Hypertension Brother Melanoma Son Seizures Other Arthritis CVA (cerebral vascular accident) High cholesterol Social History adopted: No household members: spouse and children housing: house number of children: 2 current occupational status: employed current occupation: [employer] pets and animals: Yes (1) pets and animals: dog(s) and farm animals sexually active: Yes Smoking Status: Former smoker quit date: 08/28/03 Tobacco: How many years used: 3 Electronic Cigarette Use: not used alcohol intake: current alcohol i (more content not included)... Normal [facility] Pelvic w/ Transvaginalon Pelvic w/ Transvaginal [facility] [address] [place] [id number] Pelvic w/ Transvaginal MR#: [id number] Acct: [id number] Name: GREY RIZO Rep #: [id number] : 1985 F 39 From: Calos Julian MD PCP: Dr. Mita Sawyer MD Status: REG CLI Study: Pelvic w/ Transvaginal Date of Exam: 09/27/24 Exam# [id number] Ordering Dr: Hansa Brooks NP ARTERIAL EMBALMER -C PROCEDURE: PELVIC W/ TRANSVAGINAL REASON FOR EXAM: Pain COMPARISON: None. FINDINGS Retroflexed uterus with no focal masses. Bilateral ovaries are normal with preserved vascular flow. Endometrium is unremarkable measuring up to 8 mm. Nabothian cysts are seen. Mild fluid in the cul-de-sac is seen, likely physiologic. US/Pelvic w/ Transvaginal IMPRESSION: No suspicious sonographic abnormalities. [facility] CC: ARTERIAL EMBALMER-C Hansa Brooks; Dr. Mita Sawyer MD Front Desk Auxiliary: Signed Normal [facility] Interactive Project Manager Office Visit Reporton 09-24-2024 Interactive Project Manager Office Visit Report [facility] [address], [address] [place] [address] OFFICE VISIT Date of Service: 09/24/24 MR#: [id number] Acct: [id number] Name: GREY RIZO Rep #: [id number] : 1985 Provider: GT ashby Age/Sex: 39/F Location: [facility] Status: Signed Intake Vital Signs 09/19/23 13:31 09/18/24 10:25 09/24/24 08:50 09/24/24 08:57 Height 5 ft 3 in 5 ft 3 in 5 ft 3 in 5 ft 3 in Weight: 155 lb 4 oz BMI 27.5 BP 118/84 H 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) Chief Complaint: Annual Road Maker Required: No Is patient in pain?: No Allergies latex Allergy (Mild, Verified 09/24/24 08:49) Rash ciprofloxacin (From Cipro) Allergy (Verified 09/24/24 08:49) Other gluten Adverse Reaction (Intermediate, Verified 09/24/24 08:49) Hives Medications ???Medication ???Instructions ???Recorded ???Confirmed ???Type cetirizine 10 mg capsule (Zyrtec) 10 mg PO DAILY PRN allergy symptoms 09/12/22 09/24/24 History ibuprofen 200 mg capsule 200 mg PO Q6H PRN pain 12/29/22 09/24/24 History metoprolol tartrate 25 mg tablet 25 mg PO DAILY PRN SVT 08/15/23 09/24/24 History albuterol sulfate 90 mcg/actuation 2 puff inhalation Q4H PRN 07/11/24 09/24/24 Rx aerosol inhaler shortness of breath or wheezing #8.5 grams Is last menstrual period known: Yes Last Menstrual Period: 09/09/24 Post menopausal: No Patient : No : No Control Method: Tubal PFSH Medical History Depression Anxiety Alcohol use History of steroid therapy Migraine headache Injury of head and neck Dietary restriction Heartburn Leg cramps Former smoker History of Holter monitoring History of echocardiogram Cardiology follow-up encounter History of irregular heartbeat Colonoscopy planned (07/28/18) Vitamin deficiency Kidney stones Irritable bowel syndrome Hives FHx: migraine headaches Hx: UTI (urinary tract infection) Asthma Anemia Allergies Hematuria Family history of ovarian cancer Family history of colon cancer in father Family history of breast cancer Family history of breast cancer in mother Surgical History Hx of tonsillectomy History of tubal ligation History of delivery Family History Father Heart disease Colon cancer, Onset Age: 43 Diabetes Myocardial infarction Hypertension Mother Breast cancer, Onset Age: 50 Alcoholism Anxiety Cancer Depression STD (female) Suicide attempt Heart failure Hepatitis C Heart disease Grandmother , due to breast cancer Breast cancer, Onset Age: 50 paternal grandmother Leukemia Cancer Grandfather Heart disease Colon cancer, Onset Age: 50 paternal grandfather Hypertension Grandmother , due to breast cancer Breast cancer, Onset Age: 45 maternal grandmother Cancer Grandfather , due to colon cancer Colon cancer, Onset Age: 62 Maternal Grandfather Myocardial infarction Hypertension Brother Melanoma Son Seizures Other Arthritis CVA (cerebral vascular accident) High cholesterol Social History adopted: No household members: spouse and children housing: house number of children: 2 current occupational status: employed current occupation: [employer] pets and animals: Yes (1) pets and animals: dog(s) and farm animals sexually active: Yes Smoking Status: Former smoker quit date: 08/28/03 Tobacco: How many years used: 3 Electronic Cigarette Use: not used alcohol intake: current alcohol intake frequency: holidays/special occasions only substance use type: does not use diet: gluten free caffeine: Yes (2) Type: coffee and tea frequency: daily seatbelt use: always do you feel safe at home: Yes 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 Date Name GA/Weeks Outcome Route Bth Weight Gen Labor Lgth Anesthesia Del Locatn Provider FOB 06/02/16 [place] 39 live - full term 05/14/18 L[place] 38 live - full term HPI Encounter for routine gynecological examination Details: GREY RIZO is a 39 year old who presents for annual exam. Menses still heavy as previously discussed. Noting more pain, pressure with ovulation. Last PAP: 2023 History of abnormal PAP: no Last mammogram: today pending History of abnormal mammogram: no Colon cancer screening: age 47 Other preventative health care screenings: Sejal Female Reproductive History Last Menstrual Period: 09/09/24 Cycle L (more content not included)... Normal [facility] SCRN MAMM (CAD)W/DARIUSZ BILATo n 09-24-2024 SCRN MAMM (CAD)W/DARIUSZ BILAT [facility] Imaging Services [address] [place] [address] SCRN MAMM (CAD)W/DARIUSZ BILAT MR#: [id number] Acct: [id number] Name: GREY RIZO Rep #: [id number] : 1985 F 39 From: Sravan jones MD PCP: Dr. Mita Sawyer MD [facility]: SCRN MAMM (CAD)W/DARIUSZ BILAT Date of Exam: 08/29 04/21 Exam# [id number] Ordering Dr: Hansa Brooks NP ARTERIAL EMBALMER -C PROCEDURE: SCRN MAMM (CAD)W/DARIUSZ BILAT REASON FOR EXAM: F, Age 39 y/o, mother with breast cancer. Grandmother with breast cancer. TECHNIQUE: Bilateral screening digital breast tomosynthesis with 2D and 3D images. Computer aided detection. COMPARISON: Prior exam(s) dating back to July 21, 2023.. FINDINGS: The breasts are extremely dense which lowers the sensitivity of mammography. Stable examination. Stable small bilateral axillary lymph nodes. No suspicious masses, areas of developing architectural distortion, or suspicious calcifications. BI/SCRN MAMM (CAD)W/DARIUSZ BILAT IMPRESSION: BI-RADS 2: BENIGN. RECOMMEND ANNUAL MAMMOGRAPHIC SCREENING. Follow-up code: Routine Follow-up The patient will be notified of the results by letter. Reading Location: [facility] CC: ARTERIAL EMBALMER-C Hansa Brooks; Dr. Mita Sawyer MD Front Desk Auxiliary: Signed [facility] Urgent Care Visit Reporton 0 09-18-2024 Urgent Care Visit Report [facility] [address], [address] [place] [address] OFFICE VISIT Date of Service: 09/18/24 MR#: [id number] Acct: [id number] Name: GREY RIZO Rep #: [id number] : 1985 Provider: RENUKA La Age/Sex: 39/F Location: [facility] Status: Signed Intake Vital Signs 08/19/24 10:33 09/18/24 10:25 Height 5 ft 3 in 5 ft 3 in Weight: 158 lb 8 oz BMI 28.0 BP 120/80 Position Sitting Pulse 98 Temp 98.5 F Temp Source Oral Pulse Oximetry (%) 98 Oxygen Delivery Method room air Intake Visit Reasons: SORE THROAT, BODY ACHES, FEVER Chief Complaint: cough, congest, fever, BA, Allergies latex Allergy (Mild, Verified 09/18/24 10:31) Rash ciprofloxacin (From Cipro) Allergy (Verified 09/18/24 10:31) Other gluten Adverse Reaction (Intermediate, Verified 09/18/24 10:31) Hives Medications ???Medication ???Instructions ???Recorded ???Confirmed ???Type cetirizine 10 mg capsule (Zyrtec) 10 mg PO DAILY PRN allergy symptoms 09/12/22 09/18/24 History ibuprofen 200 mg capsule 200 mg PO Q6H PRN pain 12/29/22 09/18/24 History metoprolol tartrate 25 mg tablet 25 mg PO DAILY PRN SVT 08/15/23 09/18/24 History albuterol sulfate 90 mcg/actuation 2 puff inhalation Q4H PRN 07/11/24 09/18/24 Rx aerosol inhaler shortness of breath or wheezing #8.5 grams oseltamivir 75 mg capsule 75 mg PO BID 5 days #10 caps 09/18/24 09/18/24 Rx Nurse's Note: Patient has ST,BA,fever, cough since yesterday. Patient children are sick with Flu A. [facility] Medical History (Updated 07/09/24 @ 12:52 by Debbie GRAYSON, PA) Acute maxillary sinusitis, unspecified Depression Anxiety Alcohol use History of steroid therapy Migraine headache Injury of head and neck Dietary restriction Heartburn Leg cramps Former smoker History of Holter monitoring History of echocardiogram Cardiology follow-up encounter History of irregular heartbeat Colonoscopy planned (07/28/18) Vitamin deficiency Kidney stones Irritable bowel syndrome Hives FHx: migraine headaches Hx: UTI (urinary tract infection) Asthma Anemia Allergies Hematuria Family history of ovarian cancer Family history of colon cancer in father Family history of breast cancer Family history of breast cancer in mother Surgical History Hx of tonsillectomy History of tubal ligation History of delivery Family History (Updated 03/04/24 @ 10:[address] Mita Sawyer MD) Father Heart disease Colon cancer, Onset Age: 43 Diabetes Myocardial infarction Hypertension Mother Breast cancer, Onset Age: 50 Alcoholism Anxiety Cancer Depression STD (female) Suicide attempt Heart failure Hepatitis C Heart disease Grandmother , due to breast cancer Breast cancer, Onset Age: 50 paternal grandmother Leukemia Cancer Grandfather Heart disease Colon cancer, Onset Age: 50 paternal grandfather Hypertension Grandmother , due to breast cancer Breast cancer, Onset Age: 45 maternal grandmother Cancer Grandfather , due to colon cancer Colon cancer, Onset Age: 62 Maternal Grandfather Myocardial infarction Hypertension Brother Melanoma Son Seizures Other Arthritis CVA (cerebral vascular accident) High cholesterol Social History (Updated 03/04/24 @ 10:[address] Mita Sawyer MD) adopted: No household members: spouse and children housing: house number of children: 2 current occupational status: employed current occupation: [employer] pets and animals: Yes (1) pets and animals: dog(s) and farm animals sexually active: Yes Smoking Status: Former smoker quit date: 08/28/03 Tobacco: How many years used: 3 Electronic Cigarette Use: not used alcohol intake: current alcohol intake frequency: holidays/special occasions only substance use type: does not use diet: gluten free caffeine: Yes (2) Type: coffee and tea frequency: daily seatbelt use: always do you feel safe at home: Yes 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 No complaints of chest pain or shortness of breath or dyspnea on exertion. Nonsmoker. Several close contacts recently diagnosed with similar URI complaints, including 2 of her children released and being diagnosed with influenza A and is concerned she may have the same. Requesting POC screening for influenza and COVID-19. No over the counter taken to assist. No other ass (more content not included)... Normal [facility] Urgent Care Visit Reporton 1 10-20-2023 Urgent Care Visit Report [facility] [address], [address] [place] [address] OFFICE VISIT Date of Service: 08/19/24 MR#: [id number] Acct: [id number] Name: GREY RIZO Rep #: [id number] : 1985 Provider: RENUKA La Age/Sex: 39/F [place] [facility] Status: Signed Intake Vital Signs 03/04/24 09:49 08/19/24 10:33 Height 5 ft 3 in 5 ft 3 in Weight: 160 lb BMI 28.3 BP 120/76 Blood Pressure Location Lt brachial Position Sitting Respiration 14 Pulse 74 Pulse Source Monitor Temp 97.7 F L Temp Source Temporal Pulse Oximetry (%) 99 Oxygen Delivery Method room air Intake Visit Reasons: SINUS COMP/ST Accompanied by: Self Allergies latex Allergy (Mild, Verified 08/19/24 10:33) Rash ciprofloxacin (From Cipro) Allergy (Verified 08/19/24 10:33) Other gluten Adverse Reaction (Intermediate, Verified 08/19/24 10:33) Hives Medications ???Medication ???Instructions ???Recorded ???Confirmed ???Type cetirizine 10 mg capsule (Zyrtec) 10 mg PO DAILY PRN allergy symptoms 09/12/22 08/19/24 History ibuprofen 200 mg capsule 200 mg PO Q6H PRN pain 12/29/22 08/19/24 History metoprolol tartrate 25 mg tablet 25 mg PO DAILY PRN SVT 08/15/23 08/19/24 History albuterol sulfate 90 mcg/actuation 2 puff inhalation Q4H PRN 07/11/24 08/19/24 Rx aerosol inhaler shortness of breath or wheezing #8.5 grams amoxicillin 875 mg-potassium 1 tab PO BID #28 tabs 08/19/24 08/19/24 Rx clavulanate 125 mg tablet Nurse's Note: Patient has had sinus congestion for a week. This morning she woke up with her neck feeling swollen and a barky cough. [facility] Medical History (Updated 07/09/24 @ 12:52 by Debbie GRAYSON, PA) Acute maxillary sinusitis, unspecified Depression Anxiety Alcohol use History of steroid therapy Migraine headache Injury of head and neck Dietary restriction Heartburn Leg cramps Former smoker History of Holter monitoring History of echocardiogram Cardiology follow-up encounter History of irregular heartbeat Colonoscopy planned (07/28/18) Vitamin deficiency Kidney stones Irritable bowel syndrome Hives FHx: migraine headaches Hx: UTI (urinary tract infection) Asthma Anemia Allergies Hematuria Family history of ovarian cancer Family history of colon cancer in father Family history of breast cancer Family history of breast cancer in mother Surgical History Hx of tonsillectomy History of tubal ligation History of delivery Family History (Updated 03/04/24 @ 10:[address] Mita Sawyer MD) Father Heart disease Colon cancer, Onset Age: 43 Diabetes Myocardial infarction Hypertension Mother Breast cancer, Onset Age: 50 Alcoholism Anxiety Cancer Depression STD (female) Suicide attempt Heart failure Hepatitis C Heart disease Grandmother , due to breast cancer Breast cancer, Onset Age: 50 paternal grandmother Leukemia Cancer Grandfather Heart disease Colon cancer, Onset Age: 50 paternal grandfather Hypertension Grandmother , due to breast cancer Breast cancer, Onset Age: 45 maternal grandmother Cancer Grandfather , due to colon cancer Colon cancer, Onset Age: 62 Maternal Grandfather Myocardial infarction Hypertension Brother Melanoma Son Seizures Other Arthritis CVA (cerebral vascular accident) High cholesterol Social History (Updated 03/04/24 @ 10:[address] Mita Sawyer MD) adopted: No household members: spouse and children housing: house number of children: 2 current occupational status: employed current occupation: [employer] pets and animals: Yes (1) pets and animals: dog(s) and farm animals sexually active: Yes Smoking Status: Former smoker quit date: 08/28/03 Tobacco: How many years used: 3 Electronic Cigarette Use: not used alcohol intake: current alcohol intake frequency: holidays/special occasions only substance use type: does not use diet: gluten free caffeine: Yes (2) Type: coffee and tea frequency: daily seatbelt use: always do you feel safe at home: Yes 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 Patient noted having similar complaints approximately month and a half ago which resolved with Augmentin as prescribed then. Currently no complaints of fever, chills, myalgias, fatigue, runny nose, or nausea/vomiting/diar jazz. No complaints of ches (more content not included)... Normal [facility] Urgent Care Visit Reporton 1 09-08-2023 Urgent Care Visit Report [facility] [address], [address] [place] [address] OFFICE VISIT Date of Service: 07/09/24 MR#: [id number] Acct: [id number] Name: GREY RIZO Rep #: [id number] : 1985 Provider: RENUKA La Age/Sex: 39/F [place] [facility] [place]: Signed Intake Vital Signs 03/04/24 09:49 07/09/24 10:26 Height 5 ft 3 in Weight: 160 lb BMI 28.3 BP 120/76 122/66 H Blood Pressure Location Lt brachial Lt brachial Position Sitting Sitting Respiration 14 17 Pulse 74 84 Pulse Source Monitor NIBP Temp 97.7 F L 98.8 F Temp Source Temporal Oral Pulse Oximetry (%) 99 98 Oxygen Delivery Method room air room air Intake Visit Reasons: COUGH, CONGESTION, FEVER Chief Complaint: cough, congest, fever, BA, grn mucus Road Maker Required: No Is patient in pain?: Yes Allergies latex Allergy (Mild, Verified 07/09/24 10:27) Rash ciprofloxacin (From Cipro) Allergy (Verified 07/09/24 10:27) Other gluten Adverse Reaction (Intermediate, Verified 07/09/24 10:27) Hives Is last menstrual period known: No Post menopausal: No Patient : No Have you fallen in the past year?: No Nurse's Note: cough, congest, fever, BA, grn mucus x 4 days worsening. pt two children and were admitted for microplasma recently. pt aware we do not do that swab, pt trying to avoid ED, would like lung exam [facility] Medical History (Updated 07/09/24 @ 12:52 by Debbie GRAYSON, PA) Acute maxillary sinusitis, unspecified Depression Anxiety Alcohol use History of steroid therapy Migraine headache Injury of head and neck Dietary restriction Heartburn Leg cramps Former smoker History of Holter monitoring History of echocardiogram Cardiology follow-up encounter History of irregular heartbeat Colonoscopy planned (07/28/18) Vitamin deficiency Kidney stones Irritable bowel syndrome Hives FHx: migraine headaches Hx: UTI (urinary tract infection) Asthma Anemia Allergies Hematuria Family history of ovarian cancer Family history of colon cancer in father Family history of breast cancer Family history of breast cancer in mother Surgical History Hx of tonsillectomy History of tubal ligation History of delivery Family History (Updated 03/04/24 @ 10:[address] Mita Sawyer MD) Father Heart disease Colon cancer, Onset Age: 43 Diabetes Myocardial infarction Hypertension Mother Breast cancer, Onset Age: 50 Alcoholism Anxiety Cancer Depression STD (female) Suicide attempt Heart failure Hepatitis C Heart disease Grandmother , due to breast cancer Breast cancer, Onset Age: 50 paternal grandmother Leukemia Cancer Grandfather Heart disease Colon cancer, Onset Age: 50 paternal grandfather Hypertension Grandmother , due to breast cancer Breast cancer, Onset Age: 45 maternal grandmother Cancer Grandfather , due to colon cancer Colon cancer, Onset Age: 62 Maternal Grandfather Myocardial infarction Hypertension Brother Melanoma Son Seizures Other Arthritis CVA (cerebral vascular accident) High cholesterol Social History (Updated 03/04/24 @ 10:[address] Mita Sawyer MD) adopted: No household members: spouse and children housing: house number of children: 2 current occupational status: employed current occupation: [employer] pets and animals: Yes (1) pets and animals: dog(s) and farm animals sexually active: Yes Smoking Status: Former smoker quit date: 08/28/03 Tobacco: How many years used: 3 Electronic Cigarette Use: not used alcohol intake: current alcohol intake frequency: holidays/special occasions only substance use type: does not use diet: gluten free caffeine: Yes (2) Type: coffee and tea frequency: daily seatbelt use: always do you feel safe at home: Yes 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 Family history significant for 2 of her kids have been diagnosed with mycoplasma pneumonia and is concerned she may have the same. Non-smoker. No onin-plm-vpdgkvm products taken to assist. No other associated symptoms and no other alleviating/aggravat ing factors. sinusitis/ bronchtiis - augmentin ROS Const Constitutional: No other (As above) Exam Const General: cooperative, healthy appearing and no acute distress Nutritional (more content not included)... Normal [facility] Absolute lymphocyte countOrd ered By: Mita Sawyer on 04-07-2023 Lymphocytes Auto (Unsp spec) [#/Vol] 1.94 10*3/uL 0.83-4.51 [facility] Basophil percentageOrdered B y: Mita Sawyer on 04-07-2023 Basophils/100 WBC (Bld) 0.8 % 0-1 [facility] Bilirubin [Mass/Vol] 0.30 mg/dL 0.20-1.00 [facility] Comment on above: For patients on eltr ombopag therapy, use of Dimension [place] TBIL is not recommended. Chloride [Moles/Vol] 107 mmol/L 98-107 [facility] Cholesterol [Mass/Vol] 177 mg/dL <200 [facility] Comment on above: <200 mg/dL Desirable 200-240 mg/dL Borderline >240 mg/dL High Risk Eosinophils/100 WBC (Bld) 2.4 % 0-5 [facility] Glucose [Mass/Vol] 93 mg/dL 74-106 [facility] Neutrophils (Bld) [#/Vol] 3.7 10*3/uL 2.0-7.7 [facility] Neutrophils/100 WBC (Bld) 58.8 % 47-70 [facility] Potassium [Moles/Vol] 3.8 mmol/L 3.5-5.1 [facility] Protein [Mass/Vol] 7.1 g/dL 6.4-8.2 [facility] Sodium [Moles/Vol] 138 mmol/L 136-145 [facility] Triglyceride [Mass/Vol] 198 mg/dL <199 [facility] Comment on above: The drugs N-Acetylcy steine and Metamizole may falsely depress this assay.Serum Triglycerides Reference Interval Normal <150 mg/dL Borderline high 150 - 199 mg/dL High 200 - 499 mg/dL Very High > or = 500 mg/dL WBC (Bld) [#/Vol] 6.4 10*3/uL 4.4-11.0 [facility] Blood erythrocytes count (nu mber/volume)Ordered By: Mita Sawyer on 04-07-2023 RBC (Bld) [#/Vol] 4.57 10*6/uL 4.2-5.4 [facility] Blood hemoglobin measurement (mass/volume)Ordered By: Mita Sawyer on 04-07-2023 Hemoglobin (Bld) [Mass/Vol] 13.1 g/dL 12.0-15.0 [facility] Blood lymphocytes/100 leukoc ytesOrdered By: Mita Sawyer on 04-07-2023 Lymphocytes/100 WBC (Bld) 30.6 % 19-41 [facility] Blood monocytes/100 leukocyt esOrdered By: Mita Sawyer on 04-07-2023 Monocytes/100 WBC (Bld) 7.1 % 0-10 [facility] Blood platelet mean volumeOr dered By: Mita Sawyre on 04-07-2023 Platelet mean volume (Bld) [Entitic vol] 11.2 fL 6.2-12.0 [facility] Determination of erythrocyte mean corpuscular volume (MCV)Ordered By: Mita Sawyer on 04-07-2023 MCV (RBC) [Entitic vol] 89.9 fL 81-99 [facility] Hematocrit Auto (Bld) [Volum e fraction]Ordered By: Mita Sawyer on 04-07-2023 Hematocrit (Bld) [Volume fraction] 41.1 % 37-47 [facility] Laboratory - Chemistry and C hemistry - challengeOrdered By: Mita Sawyer on 04-07-2023 ALP [Catalytic activity/Vol] 76 U/L 45-117 [facility] ALT [Catalytic activity/Vol] 18 U/L 13-56 [facility] CO2 [Moles/Vol] 27.0 mmol/L 21.0-32.0 [facility] Globulin (S) [Mass/Vol] 3.9 g/dL 2.2-4.2 [facility] Urea nitrogen/Creatinine [Mass ratio] 9.5 mg/mg 10-20 [facility] Laboratory - Hematology and Cell countsOrdered By: Mita Saweyr on 04-07-2023 Erythrocyte distribution width (RBC) [Entitic vol] 47.0 fL 35.1-43.9 [facility] Erythrocyte distribution width (RBC) [Ratio] 14.3 % 11.6-14.6 [facility] Immature granulocytes/100 WBC (Bld) 0.300 % 0.0-0.9 [facility] Comment on above: IG% - Immature Granu locytes (promyelocytes, myelocytes and metamyelocytes) > 1% indicates that a LEFT SHIFT is Present. MCH (RBC) [Entitic mass] 28.7 pg 27.0-32.0 [facility] Nucleated RBC/100 WBC (Bld) [Ratio] 0 % 0-5 [facility] - Miscellaneous t estsOrdered By: Mita Sawyer on 04-07-2023 Service comment (Unsp spec) [Interp] Comment . [facility] Comment on above: Levels of Specific I gE Class Description of Class ----- < 0.10 0 Negative 0.10 - 0.31 0/I Equivocal/Low 0.32 - 0.55 I Low 0.56 - 1.40 II Moderate 1.41 - 3.90 III High 3.91 - 19.00 IV Very High 19.01 - 100.00 V Very High >100.00 Very High MCHC Auto (RBC) [Mass/Vol]Or dered By: Mita Sawyer on 04-07-2023 MCHC (RBC) [Mass/Vol] 31.9 g/dL 32-36 [facility] No Panel InformationOrdered By: Mita Sawyer on 04-07-2023 Estimated GFR (MDRD) Amer 98 mL/min >60 [facility] Comment on above: GFR Calc Estimated GFR (MDRD) Non-Af Amer 81 mL/min >60 [facility] Comment on above: Non- GFR Calc Scallop Allergen <0.10 kU/L Class 0 [facility] Sesame Seed Allergen IgE Antibody <0.10 kU/L [facility] 0 [facility] Comment on above: Performed at: [address] [id number] Director: Sushila Pena MD, Phone: [phone] Shrimp Allergen <0.10 kU/L Class 0 [facility] Thyroid Stimulating Hormone (TSH) 2.56 uIU/mL 0.358-3.74 [facility] Vitamin D 25-Hydroxy 43.8 ng/mL [facility] Comment on above: Vitamin D 25(OH) Sta tus Range Deficiency <20 ng/mL (50nmol/L) Insufficiency 20 - 30 ng/mL (50 - 75 nmol/L) Sufficiency 30 - 100 ng/mL (75 - 250 nmol/L) Toxicity >100 ng/mL (>250 nmol/L) Platelets bldOrdered By: Tariq Sawyer on 04-07-2023 Platelets (Bld) [#/Vol] 264 10*3/uL 150-450 [facility] Serum black walnut IgE antib maria de jesus assay (units/volume)Ordered By: Mita Sawyer on 04-07-2023 [place] IgE Qn (S) <0.10 kU/L Class 0 [facility] Serum clam IgE antibody assa y (units/volume)Ordered By: Mita Sawyer on 04-07-2023 Clam IgE Qn (S) <0.10 kU/L Class 0 [facility] Serum codfish IgE antibody a ssay (units/volume)Ordered By: Mitajosefa Sawyer on 04-07-2023 Codfish IgE Qn (S) <0.10 kU/L Class 0 [facility] Serum corn IgE antibody assa y (units/volume)Ordered By: Mita Sawyer on 04-07-2023 [place] IgE Qn (S) <0.10 kU/L Class 0 [facility] Serum cow milk IgE antibody assay (units/volume)Ordered By: Mita Sawyer on 04-07-2023 Cow milk IgE Qn (S) 0.11 kU/L Class 0/I [facility] Serum egg white IgE antibody assay (units/volume)Ordered By: Mita Sawyer on 04-07-2023 Egg white IgE Qn (S) <0.10 kU/L Class 0 [facility] Serum or plasma albumin bernardo urement (mass/volume)Ordered By: Mita Sawyer on 04-07-2023 Albumin [Mass/Vol] 3.2 g/dL 3.2-5.0 [facility] Serum or plasma albumin/glob ulin mass ratioOrdered By: Mita Sawyer on 04-07-2023 Albumin/Globulin [Mass ratio] 0.8 {ratio} 0.9-2.4 [facility] Serum or plasma calcium bernardo urement (mass/volume)Ordered By: Mita Sawyer on 04-07-2023 Calcium [Mass/Vol] 8.4 mg/dL 8.5-10.1 [facility] Serum or plasma cholesterol in HDL measurement (mass/volume)Ordered By: Mita Sawyer on 04-07-2023 Cholesterol in HDL [Mass/Vol] 47 mg/dL >40 [facility] Comment on above: The drugs N-Acetylcy steine and Metamizole may falsely depress this assay. Reference Range HDL <40 mg/dL Low HDL Cholesterol HDL >or= 60 mg/dL High HDL Cholesterol Serum or plasma cholesterol in VLDL measurement (mass/volume)Ordered By: Mita Sawyer on 04-07-2023 Cholesterol in VLDL [Mass/Vol] 40 mg/dL 5-40 [facility] Serum or plasma creatinine m easurement (mass/volume)Ordered By: Mita Sawyer on 04-07-2023 Creatinine [Mass/Vol] 0.84 mg/dL 0.55-1.02 [facility] Comment on above: The validity of the calculated GFR & GFRAA in patients over 70 years has not been determined. Clinical correlation is essential. Serum or plasma low density lipoprotein (LDL) cholesterol measurement (mass/volume)Ordered By: Mita Sawyer on 04-07-2023 Cholesterol in LDL [Mass/Vol] 90 mg/dL 0-130 [facility] Serum or plasma urea nitroge n measurement (mass/volume)Ordered By: Mita Sawyer on 04-07-2023 Urea nitrogen [Mass/Vol] 8 mg/dL 7-18 [facility] Serum peanut IgE antibody as say (units/volume)Ordered By: Mita Sawyer on 04-07-2023 Peanut IgE Qn (S) <0.10 kU/L Class 0 [facility] Serum soybean IgE antibody a ssay (units/volume)Ordered By: Mita Sawyer on 04-07-2023 Soybean IgE Qn (S) <0.10 kU/L Class 0 [facility] Serum wheat IgE antibody ass ay (units/volume)Ordered By: Mita Sawyer on 04-07-2023 Wheat IgE Qn (S) <0.10 kU/L Class 0 [facility] Thin prep Papanicolaou smear with manual screeningOrdered By: Mita Sawyer on 04-07-2023 Thin prep Papanicolaou smear with manual screening 12 U/L 15-37 [facility] Thin prep Papanicolaou smear with manual screening 4 5-15 [facility] Culture, urineOrdered By: St vamshi Jimenez on 02-22-2023 Bacteria identified Cx Nom (U) Enterococcus faecalis [facility] - Chemistry and C hemistry - challengeon 02-22-2023 Glucose Ql (U) Negative [facility] Ketones Ql (U) Negative [facility] pH (U) 8.0 [pH] [facility] Specific gravity (U) [Rel density] 1.005 [facility] Urobilinogen (U) [Mass/Vol] 0.6779835 mg/dL [facility] - Hematology and Cell countson 02-22-2023 Hemoglobin Ql (U) Hemolyzed [facility] - Specimen inform ationon 02-22-2023 Clarity (U) Clear [facility] Color (U) YELLOW [facility] - Urinalysison Nitrite Ql (U) Negative [facility] Protein Ql (U) Negative [facility] No Panel Informationon 02-22 Urine Leukocytes Negatve [facility] Urine Non-Hemolyzed Blood Trace [facility] - Microbiology an d Antimicrobial susceptibilityon 01-23-2023 S. pyogenes Ag IA Ql (Unsp spec) Negative [facility] - Microbiology an d Antimicrobial susceptibilityon 12-29-2022 S. pyogenes Ag IA Ql (Unsp spec) Positive [facility] No Panel Informationon 07-20 POC SARS CoV-2 Antigen Positive [facility] .Auto Diffon 03-15-2022 Basophil, Absolute 0.1 10 3/mcL Normal 0.0-0.3 [facility] ([place]) Comment on above: Performed By: #### L IPID, FES, VIDH, GFR, CMP, FERR #### [address] [address] Basophils/100 WBC (Bld) 0.9 % Normal 0.0-2.5 [facility] ([place]) Comment on above: Performed By: #### L IPID, FES, VIDH, GFR, CMP, FERR #### [address] [address] Eosinophil, Absolute 0.1 10 3/mcL Normal 0.0-0.7 [facility] ([place]) Comment on above: Performed By: #### L IPID, FES, VIDH, GFR, CMP, FERR #### [address] [address] Eosinophils/100 WBC (Bld) 2.2 % Normal 0.0-6.0 [facility] ([place]) Comment on above: Performed By: #### L IPID, FES, VIDH, GFR, CMP, FERR #### [address] [address] Lymphocyte, Absolute 1.9 10 3/mcL Normal 0.9-4.3 [facility] ([place]) Comment on above: Performed By: #### L IPID, FES, VIDH, GFR, CMP, FERR #### [address] [address] Lymphocytes/100 WBC (Bld) 28.6 % Normal 20.0-40.0 [facility] ([place]) Comment on above: Performed By: #### L IPID, FES, VIDH, GFR, CMP, FERR #### [address] [address] Monocyte, Absolute 0.5 10 3/mcL Normal 0.1-1.4 [facility] ([place]) Comment on above: Performed By: #### L IPID, FES, VIDH, GFR, CMP, FERR #### [address] [address] Monocytes/100 WBC (Bld) 8.4 % Normal 2.0-13.0 [facility] ([place]) Comment on above: Performed By: #### L IPID, FES, VIDH, GFR, CMP, FERR #### [address] [address] Neutrophils/100 WBC (Bld) 59.9 % Normal 50.0-75.0 [facility] ([place]) Comment on above: Performed By: #### L IPID, FES, VIDH, GFR, CMP, FERR #### [address] [address] .GFRon 03-15-2022 GFR Non- >60 Normal [facility] ([place]) Comment on above: Result Comment: GFR Population mean for , Non- Americans Ages 20-29 = 116 mL/min/1.73 sq.m. Ages 30-39 = 107 mL/min/1.73 sq.m. Ages 40-49 = 99 mL/min/1.73 sq.m. Ages 50-59 = 93 mL/min/1.73 sq.m. Ages 60-69 = 85 mL/min/1.73 sq.m. Ages 70+ = 75 mL/min/1.73 sq.m. Chronic Kidney Disease: Less than 60 mL/min/1.73 square meters End Stage Renal Disease: Less than 15 mL/min/1.73 square meters Performed By: #### L IPID, FES, VIDH, GFR, CMP, FERR #### [address] [address] GFR >60 Normal [facility] ([place]) Comment on above: Result Comment: GFR Population mean for , Non- Americans Ages 20-29 = 116 mL/min/1.73 sq.m. Ages 30-39 = 107 mL/min/1.73 sq.m. Ages 40-49 = 99 mL/min/1.73 sq.m. Ages 50-59 = 93 mL/min/1.73 sq.m. Ages 60-69 = 85 mL/min/1.73 sq.m. Ages 70+ = 75 mL/min/1.73 sq.m. Chronic Kidney Disease: Less than 60 mL/min/1.73 square meters End Stage Renal Disease: Less than 15 mL/min/1.73 square meters Performed By: #### L IPID, FES, VIDH, GFR, CMP, FERR #### [address] [address] .MDWon 03-15-2022 Monocyte Distribution Width Not performed Normal 0.00-20.00 [facility] ([place]) Comment on above: Result Comment: MDW testing performed only on adult ER patients between the ages of 18-89 years. Performed By: #### L IPID, FES, VIDH, GFR, CMP, FERR #### [address] [address] .NEUABSon 03-15-2022 Neutrophil, Absolute 3.9 10 3/mcL Normal 2.3-8.1 [facility] ([place]) Comment on above: Performed By: #### L IPID, FES, VIDH, GFR, CMP, FERR #### [address] [address] CBCon 03-15-2022 Erythrocyte distribution width (RBC) [Ratio] 13.9 % Normal 11.5-15.5 [facility] ([place]) Comment on above: Performed By: #### L IPID, FES, VIDH, GFR, CMP, FERR #### [place] [address] Hematocrit (Bld) [Volume fraction] 42.9 % Normal 34.0-46.0 [facility] ([place]) Comment on above: Performed By: #### L IPID, FES, VIDH, GFR, CMP, FERR #### [place] [id number] Hgb 14.1 G/dL Normal 12.0-16.0 [facility] ([place]) Comment on above: Performed By: #### L IPID, FES, VIDH, GFR, CMP, FERR #### [place] [id number] MCH (RBC) [Entitic mass] 29.9 pg Normal 27.0-33.0 [facility] ([place]) Comment on above: Performed By: #### L IPID, FES, VIDH, GFR, CMP, FERR #### [place] [id number] MCHC 33.0 G/dL Normal 32.0-36.0 [facility] ([place]) Comment on above: Performed By: #### L IPID, FES, VIDH, GFR, CMP, FERR #### [place] [id number] MCV (RBC) [Entitic vol] 90.6 fL Normal 80.0-99.0 [facility] ([place]) Comment on above: Performed By: #### L IPID, FES, VIDH, GFR, CMP, FERR #### [place] [id number] Platelet 268 10 3/mcL Normal 150-450 [facility] ([place]) Comment on above: Performed By: #### L IPID, FES, VIDH, GFR, CMP, FERR #### [place] [address] Platelet mean volume (Bld) [Entitic vol] 9.3 fL Normal 6.6-10.5 [facility] ([place]) Comment on above: Performed By: #### L IPID, FES, VIDH, GFR, CMP, FERR #### [place] [address] RBC 4.73 10 6/mcL Normal 4.10-5.30 [facility] ([place]) Comment on above: Performed By: #### L IPID, FES, VIDH, GFR, CMP, FERR #### [place] [address] WBC 6.5 10 3/mcL Normal 4.5-10.8 [facility] ([place]) Comment on above: Performed By: #### L IPID, FES, VIDH, GFR, CMP, FERR #### [place] [address] CMPon 03-15-2022 Albumin Level 3.7 G/dL Normal 3.2-4.8 [facility] ([place]) Comment on above: Performed By: #### L IPID, FES, VIDH, GFR, CMP, FERR #### [place] [address] Albumin/Globulin [Mass ratio] 1.1 {ratio} Normal 0.9-1.6 [facility] ([place]) Comment on above: Performed By: #### L IPID, FES, VIDH, GFR, CMP, FERR #### [place] [address] ALP [Catalytic activity/Vol] 85 U/L Normal 38-126 [facility] ([place]) Comment on above: Performed By: #### L IPID, FES, VIDH, GFR, CMP, FERR #### [place] [address] ALT [Catalytic activity/Vol] 13 U/L Normal 10-49 [facility] ([place]) Comment on above: Performed By: #### L IPID, FES, VIDH, GFR, CMP, FERR #### [address] [address] AST [Catalytic activity/Vol] 15 U/L Normal 8-34 [facility] ([place]) Comment on above: Performed By: #### L IPID, FES, VIDH, GFR, CMP, FERR #### [address] [address] Bili Total 0.40 mg/dL Normal 0.20-1.20 [facility] ([place]) Comment on above: Result Comment: Use of this assay is not recommended for patients undergoing treatment with eltrombopag due to the potential for falsely elevated results. Performed By: #### L IPID, FES, VIDH, GFR, CMP, FERR #### [place] [id number] BUN/Creatinine Ratio 13.0 ratio Normal 10.0-22.0 [facility] ([place]) Comment on above: Performed By: #### L IPID, FES, VIDH, GFR, CMP, FERR #### [address] [address] Calcium [Mass/Vol] 9.4 mg/dL Normal 8.7-10.4 [facility] ([place]) Comment on above: Performed By: #### L IPID, FES, VIDH, GFR, CMP, FERR #### [address] [address] Chloride [Moles/Vol] 108 mmol/L Normal 98-110 [facility] ([place]) Comment on above: Performed By: #### L IPID, FES, VIDH, GFR, CMP, FERR #### [address] [address] CO2 [Moles/Vol] 28 mmol/L Normal 22-32 [facility] ([place]) Comment on above: Performed By: #### L IPID, FES, VIDH, GFR, CMP, FERR #### [address] [address] Creatinine [Mass/Vol] 0.69 mg/dL Normal 0.50-1.20 [facility] ([place]) Comment on above: Performed By: #### L IPID, FES, VIDH, GFR, CMP, FERR #### [address] [address] Electrolyte Balance 7.0 mEq/L Normal 4.0-15.0 [facility] ([place]) Comment on above: Performed By: #### L IPID, FES, VIDH, GFR, CMP, FERR #### [place] [id number] Globulin 3.4 G/dL Normal 1.5-3.8 [facility] ([place]) Comment on above: Performed By: #### L IPID, FES, VIDH, GFR, CMP, FERR #### [place] [id number] Glucose [Mass/Vol] 85 mg/dL Normal 70-110 [facility] ([place]) Comment on above: Performed By: #### L IPID, FES, VIDH, GFR, CMP, FERR #### [address] [address] Potassium [Moles/Vol] 4.8 mmol/L Normal 3.5-5.0 [facility] ([place]) Comment on above: Performed By: #### L IPID, FES, VIDH, GFR, CMP, FERR #### [place] [id number] Sodium [Moles/Vol] 143 mmol/L Normal 136-145 [facility] ([place]) Comment on above: Performed By: #### L IPID, FES, VIDH, GFR, CMP, FERR #### [place] [id number] Total Protein 7.1 G/dL Normal 5.7-8.2 [facility] ([place]) Comment on above: Result Comment: No te - New Reference Range in effect 20 Performed By: #### L IPID, FES, VIDH, GFR, CMP, FERR #### [address] [address] Urea nitrogen [Mass/Vol] 9.0 mg/dL Normal 8.0-22.0 [facility] ([place]) Comment on above: Performed By: #### L IPID, FES, VIDH, GFR, CMP, FERR #### [address] [address] Charles 03-15-2022 Ferritin [Mass/Vol] 12.7 ng/mL Normal 8.0-252.0 [facility] ([place]) Comment on above: Performed By: #### L IPID, FES, VIDH, GFR, CMP, FERR #### [place] [address] FES 03-15-2022 Iron [Mass/Vol] 102 ug/dL Normal 50-170 [facility] ([place]) Comment on above: Performed By: #### L IPID, FES, VIDH, GFR, CMP, FERR #### [place] [address] Iron Sat 28 % Normal [facility] ([place]) Comment on above: Performed By: #### L IPID, FES, VIDH, GFR, CMP, FERR #### [place] [address] TIBC 365 mcg/dL Normal 250-500 [facility] ([place]) Comment on above: Performed By: #### L IPID, FES, VIDH, GFR, CMP, FERR #### [place] [address] LIPIDon 03-15-2022 Cholesterol [Mass/Vol] 207 mg/dL High 50-199 [facility] ([place]) Comment on above: Result Comment: Chol esterol Reference Interval: Less than 200 Desirable 200-239 Borderline high risk 240 and above High risk Performed By: #### L IPID, FES, VIDH, GFR, CMP, FERR #### [place] [address] Cholesterol in HDL [Mass/Vol] 52 mg/dL Normal 40-59 [facility] ([place]) Comment on above: Performed By: #### L IPID, FES, VIDH, GFR, CMP, FERR #### [address] [address] Cholesterol in LDL [Mass/Vol] 108 mg/dL Normal 0-129 [facility] ([place]) Comment on above: Performed By: #### L IPID, FES, VIDH, GFR, CMP, FERR #### [address] [address] Triglyceride [Mass/Vol] 237 mg/dL High 3-149 [facility] ([place]) Comment on above: Performed By: #### L IPID, FES, VIDH, GFR, CMP, FERR #### [address] [address] VIDHon 03-15-2022 Vit. D 25-Hydroxy 38.2 ng/mL Normal [facility] ([place]) Comment on above: Result Comment: Inte rpretive Values Based on Total 25(OH)D: Severe Deficiency <20 ng/mL Mild to Moderate Deficiency 20-30 ng/mL Optimum Levels 30-100 ng/mL Toxicity Possible >100 ng/mL Performed By: #### L IPID, FES, VIDH, GFR, CMP, FERR #### [address] [address] [place] MAMMOGRAM SCREENING BILAT ERAL W/TOMOon 06-22-2021 MA MAMMOGRAM SCREENING BILATERAL W/DARIUSZ ORIGINAL FROM: [address] [address] PROCEDURE FOR: GREY RIZO [address] [place] [address] Home: PID#: [id number] Exam#: [id number] : 1985 Age: 36 TO: DEBBIE ALEXANDER MD [address] [place], [place] [address] EXAMINATION: SCREENING DIGITAL BILATERAL MAMMOGRAM WITH TOMOSYNTHESIS, 06/22/2021 TECHNIQUE: Screening mammography of the bilateral breasts was performed with tomosynthesis. 2D standard and 3D tomosynthesis combination imaging performed through both breasts in the MLO and CC projection. Computer aided detection was utilized in the interpretation of this exam. COMPARISON: Breast MRI 11/16/2020, screening mammogram 05/01/2020, March 26, 2019 HISTORY: Breast cancer screening. FINDINGS: BREAST DENSITY: Heterogeneously dense There are no significant masses or calcifications. No significant interval change. IMPRESSION: No mammographic evidence of malignancy. Predilyticser [facility] calculations report this patient's 10 year risk and lifetime risk for developing breast cancer at 3.0% and 32.1%, respectively. Based on this assessment tool, this patient's calculated lifetime risk is at or above 20% and they may be a candidate for breast MRI screening per the [employer]. I have personally reviewed and agree with the resident's interpretation. BIRADS: MAMMOGRAM BI-RADS: 1: Negative RECALL: none RECALL TYPE: mammo LETTER SENT: Normal BI-RADS 1 and 2 Interpreted by: Perlita Mccauley MD Preliminary Report By: Crescencio Duke Electronically signed By Perlita Mccauley MD Dictated Date: 06/24/2021 11:25:05 AM Prelim Date: 06/25/2021 7:52:26 PM Sign Date: 06/25/2021 7:52:26 PM Ordering Provider: DEBBIE ALEXANDER Acquisition Manager: RADHA SKAGGS RT(R)(M) letter sent: Normal BI-RADS 1 and 2 Mammogram BI-RADS: 1 Negative Normal [facility] ([place]) XR CHEST 2 VIEWSon XR CHEST 2 VIEWS ORIGINAL EXAMINATION: TWO XRAY VIEWS OF THE CHEST 06/16/2021 3:58 pm COMPARISON: February 05, 2020 HISTORY: ORDERING SYSTEM PROVIDED HISTORY: Reason for Exam: COUGH FINDINGS: Heart is normal in size and there is no vascular congestion present. No consolidation, atelectasis or pleural fluid seen. No osseous abnormality. IMPRESSION: Normal exam. Interpreted by: Marvin Groves MD Preliminary Report By: Marvin Groves MD Electronically signed By Marvin Groves MD Dictated Date: 06/17/2021 8:15:16 AM Prelim Date: 06/17/2021 8:15:45 AM Sign Date: 06/17/2021 8:15:45 AM Ordering Provider: BRITTANY Gimenez [facility] ([place]) COVIDon 05-03-2021 Date of Onset [id number] [facility] ([place]) Comment on above: Performed By: #### L IPID, FES, VIDH, GFR, CMP, FERR #### [place] [address] Employed in Healthcare [facility] ([place]) Comment on above: Performed By: #### L IPID, FES, VIDH, GFR, CMP, FERR #### [place] [address] First Test No [facility] ([place]) Comment on above: Performed By: #### L IPID, FES, VIDH, GFR, CMP, FERR #### [place] [address] Hospitalized No [facility] ([place]) Comment on above: Performed By: #### L IPID, FES, VIDH, GFR, CMP, FERR #### [place] [address] ICU No [facility] ([place]) Comment on above: Performed By: #### L IPID, FES, VIDH, GFR, CMP, FERR #### [place] [address] Not [facility] ([place]) Comment on above: Performed By: #### L IPID, FES, VIDH, GFR, CMP, FERR #### [place] [address] Resides in Congregate Care Setting [facility] ([place]) Comment on above: Performed By: #### L IPID, FES, VIDH, GFR, CMP, FERR #### [place] [address] SARS-CoV-2 (COVID-19) RNA ISA+probe Ql (Unsp spec) See Below Abnormal [facility] ([place]) Comment on above: Result Comment: Naso pharyngeal Swab Performed By: [facility] [employer] [address] [place] [address] Ranch Manager: Sahara Cage III#: [id number] Phone#: Performed By: #### L IPID, FES, VIDH, GFR, CMP, FERR #### [address] [address] Result Comment: Posi tive Positive for COVID19 (SARS CoV2) by RT-PCR or equivalent method.(*) This test was developed and its performance characteristics determined by [facility]'s [facility]. This test has been authorized by FDA under an Emergency Use Authorization (EUA). This test has been validated in accordance with the FDA's Guidance Document Policy for Diagnostics Testing in Laboratories Certified to Perform High Complexity Testing under CLIA prior to Emergency use Authorization for Coronavirus Disease 2019 during the Public Health Emergency issued on October 26, 2019. Test performed by [facility], [facility], [address] [place] [address]. Performed By: [place] [address] Ranch Manager: Musa Cullen III, M.D. CLIA#: [id number] Phone#: Symptomatic as Defined by CDC Yes Normal [facility] ([place]) Comment on above: Performed By: #### L IPID, FES, VIDH, GFR, CMP, FERR #### [place] [id number] ED Note-Provideron 7 ED Note-Provider Normal [facility] Patient Summary Documentson 03-07-2017 Patient Summary Documents Normal [facility] RHOGAM Workupon 03-06-2017 Mat. Hemorrhage Negative Normal [facility] Comment on above: Order Comment: CBN Performed By: #### R HO ####[place] [address] AB Screen/Indirect AHG Negative [facility] Comment on above: Order Comment: CBN Performed By: #### R HO ####[address] [address] Patient ABO/RH Negative Normal [facility] Comment on above: Order Comment: CBN Performed By: #### R HO ####[facility], [address] [facility], [place] [address] US TRANSVAGINAL OBon 03-06- 017 US TRANSVAGINAL OB ORIGINAL OBSTETRICS REPORT (Signed Final 03/06/2017 09:42 pm) Patient Info ID #: [id number] : [birth year] (32 yrs)(F) Name: GREY Martines SALLIE Visit Date: 03/06/2017 09:13 pm Kayley maher By Performed By: Toña Barakat [facility] Associate: Dr. Cameron Mcknight Attending: Dr. Valerie Quintero Referred By: ED Physician Location: [facility] Jerry connor(s) Provided Transvaginal-------- --Indications vaginal bleeding; ectopic, viability F etal Evaluation Num Of Fetuses: 1 Preg. Location: Intrauterine Gest. Sac: Visualized Yolk Sac: Visualized Pole: Visualized Heart Rate: 130 bpm Cardiac Activity: Observed Placenta: Too early to localize Comment: Too early to evaluate anatomy. Amniotic Fluid FRANSISCA FV: Appropriate for gestational age Biometr y CRL: 7 mm G. Age: 6w 4d GIFTY: 10/26/17 Gestationa l Age LMP: 6w 1d Date: 01/22/17 GIFTY: 10/29/17 Best: 6w 4d Det. By: William Martines GIFTY: 10/26/17 (03/06/17) Cervix Uterus Adnexa Uterus: 8x5.8x6.2cm, Retroverted Left Ovary: Size(cm) L: 3.24 x W: 2.07 x H: 2.21 Volume(cc): 7.8 Right Ovary: Size(cm) L: 2.61 x W: 1.29 x H: 1.46 Volume(cc): 2.6 Adnexa: The left and right adnexae are normal. Imp ression Single live intrauterine gestation of estimated gestational age of 6 weeks 4 days by CRL. Placenta is too early to localize. Two small perigestational hemorrhages, the largest measuring 1.6 x 1.3 x 0.7 cm. I have personally reviewed the images of this examination and agree with the resident's findings and interpretation.----- ----- Thank you for sharing in the care of Ms. GREY RIZO with us. Please do not hesitate to contact us if you have any questions or concerns. Valerie Quintero MDElectronically Signed Final Report 03/06/2017 09:42 pm Normal [facility] Vital Signs Date Time Vital Sign Value Performing Clinician Mykeli dimas 03-10-2025 09:28-0400 Body height 160.[address] Mita Sawyer MD Work Phone: [facility] 03-10-2025 09:28-0400 Body mass index (BMI) [Ratio] 26.5 kg/m2 Dr. Mita Sawyer MD Work Phone: [facility] 03-10-2025 09:28-0400 Body temperature 97.4 [degF] Dr. Mita Sawyer MD Work Phone: [facility] 03-10-2025 09:28-0400 Body weight 68.[address] Mita Sawyer MD Work Phone: [facility] 03-10-2025 09:28-0400 Diastolic blood pressure 70 mm[Hg] Dr. Mita Sawyer MD Work Phone: [facility] 03-10-2025 09:28-0400 Heart rate 75 /min Dr. Mita Sawyer MD Work Phone: [facility] 03-10-2025 09:28-0400 Respiratory rate 16 /min Dr. Mita Sawyer MD Work Phone: [facility] 03-10-2025 09:28-0400 SaO2% (BldA) [Mass fraction] 99 % Dr. Mita Sawyer MD Work Phone: [facility] 03-10-2025 09:28-0400 Systolic blood pressure 110 mm[Hg] Dr. Mita Sawyer MD Work Phone: [facility] 11-29-2024 15:52-0400 Diastolic blood pressure 80 mm[Hg] Dr. Mita Sawyer MD Work Phone: [facility] 11-29-2024 15:52-0400 Systolic blood pressure 138 mm[Hg] Dr. Mita Sawyer MD Work Phone: [facility] 11-29-2024 09:17-0400 Body mass index (BMI) [Ratio] 27.4 kg/m2 Dr. Mita Sawyer MD Work Phone: [facility] 11-29-2024 09:17-0400 Body weight 70.[address] Mita Sawyer MD Work Phone: [facility] 11-29-2024 09:17-0400 Heart rate 84 /min Dr. Mita Sawyer MD Work Phone: [facility] 11-29-2024 09:17-0400 Respiratory rate 18 /min Dr. Mita Sawyer MD Work Phone: [facility] 11-29-2024 09:17-0400 SaO2% (BldA) [Mass fraction] 100 % Dr. Mita Sawyer MD Work Phone: [facility] 09-19-2023 13:31-0500 Body height 160.[address] Mita Sawyer Work Phone: [facility] 09-19-2023 13:22-0500 Body mass index (BMI) [Ratio] 27.1 kg/m2 Dr. Mita Sawyer Work Phone: [facility] 09-19-2023 13:22-0500 Body weight 69.[address] Mita Sawyer Work Phone: [facility] 09-19-2023 13:22-0500 Diastolic blood pressure 82 mm[Hg] Dr. Mita Sawyer Work Phone: [facility] 09-19-2023 13:22-0500 Systolic blood pressure 126 mm[Hg] Dr. Mita Sawyer Work Phone: [facility] 09-16-2023 11:43-0500 Body temperature 98.2 [degF] Dr. Mita Sawyer Work Phone: [facility] 09-16-2023 11:43-0500 Diastolic blood pressure 74 mm[Hg] Dr. Mita Sawyer Work Phone: [facility] 09-16-2023 11:43-0500 Heart rate 99 /min Dr. Mita Sawyer Work Phone: [facility] 09-16-2023 11:43-0500 Respiratory rate 12 /min Dr. Mita Sawyer Work Phone: [facility] 09-16-2023 11:43-0500 SaO2% (BldA) [Mass fraction] 98 % Dr. Mita Sawyer Work Phone: [facility] 09-16-2023 11:43-0500 Systolic blood pressure 118 mm[Hg] Dr. Mita Sawyer Work Phone: [facility] 08-18-2023 09:00-0500 Body temperature 98.4 [degF] Dr. Mita Sawyer Work Phone: [facility] 08-18-2023 09:00-0500 Diastolic blood pressure 71 mm[Hg] Dr. Mita Sawyer Work Phone: [facility] 08-18-2023 09:00-0500 Heart rate 60 /min Dr. Mita Sawyer Work Phone: [facility] 08-18-2023 09:00-0500 Respiratory rate 16 /min Dr. Mita Sawyer Work Phone: [facility] 08-18-2023 09:00-0500 SaO2% (BldA) [Mass fraction] 100 % Dr. Mita Sawyer Work Phone: [facility] 08-18-2023 09:00-0500 Systolic blood pressure 102 mm[Hg] Dr. Mita Sawyer Work Phone: [facility] 08-18-2023 06:40-0500 Body height 160.[address] Mita Sawyer Work Phone: [facility] 08-18-2023 06:40-0500 Body mass index (BMI) [Ratio] 26.1 kg/m2 Dr. Mita Sawyer Work Phone: [facility] 08-18-2023 06:40-0500 Body weight 66.[address] Mita Sawyer Work Phone: [facility] 06-30-2023 16:02-0400 Body temperature 99.7 [degF] Dr. Brittany Sunshine Work Phone: [facility] 06-30-2023 16:02-0400 Diastolic blood pressure 78 mm[Hg] Dr. Brittany Sunshine Work Phone: [facility] 06-30-2023 16:02-0400 Heart rate 90 /min Dr. Brittany Sunshine Work Phone: [facility] 06-30-2023 16:02-0400 Respiratory rate 17 /min Dr. Brittany Sunshine Work Phone: [facility] 06-30-2023 16:02-0400 SaO2% (BldA) [Mass fraction] 96 % Dr. Brittany Sunshine Work Phone: [facility] 06-30-2023 16:02-0400 Systolic blood pressure 145 mm[Hg] Dr. Brittany Sunshine Work Phone: [facility] 06-26-2023 09:19-0400 Body height 160.[address] Brittany Sunshine Work Phone: 0(140)006-043675 [address] 06-26-2023 09:19-0400 Body mass index (BMI) [Ratio] 26.5 kg/m2 Dr. Brittany Sunshine Work Phone: 0(580)361-829069 [place] [address] 06-26-2023 09:19-0400 Body temperature 98.6 [degF] Dr. Brittany Sunshine Work Phone: [facility] 06-26-2023 09:19-0400 Body weight 68.[address] Brittany Sunshine Work Phone: [facility] 06-26-2023 09:19-0400 Diastolic blood pressure 94 mm[Hg] Dr. Brittany Sunshine Work Phone: [facility] 06-26-2023 09:19-0400 Heart rate 82 /min Dr. Brittany Sunshine Work Phone: [facility] 06-26-2023 09:19-0400 Respiratory rate 16 /min Dr. Brittany Sunshine Work Phone: [facility] 06-26-2023 09:19-0400 SaO2% (BldA) [Mass fraction] 98 % Dr. Brittany Sunshine Work Phone: [facility] 06-26-2023 09:19-0400 Systolic blood pressure 167 mm[Hg] Dr. Brittany Sunshine Work Phone: [facility] 06-14-2023 13:52-0400 Body mass index (BMI) [Ratio] 26.5 kg/m2 Dr. Brittany Sunshine Work Phone: [facility] 06-14-2023 13:52-0400 Body weight 68.[address] Brittany Sunshine Work Phone: [facility] 06-14-2023 13:52-0400 Diastolic blood pressure 71 mm[Hg] Dr. Brittany Sunshine Work Phone: 2(538)695-631975 [address] 06-14-2023 13:52-0400 Heart rate 77 /min Dr. Brittany Sunshine Work Phone: 3(786)351-359653 [place] [address] 06-14-2023 13:52-0400 Respiratory rate 14 /min Dr. Brittany Sunshine Work Phone: 1(603)902-309969 [place] [address] 06-14-2023 13:52-0400 Systolic blood pressure 135 mm[Hg] Dr. Brittany Sunshine Work Phone: 6(953)123-697875 [address] 05-09-2023 12:53-0400 Body mass index (BMI) [Ratio] 26.5 kg/m2 Dr. Brittany Sunshine Work Phone: 8(684)445-359875 [address] 05-09-2023 12:53-0400 Body temperature 97.3 [degF] Dr. Brittany Sunshine Work Phone: 8(528)005-201269 [place] [address] 05-09-2023 12:53-0400 Body weight 68.[address] Brittany Sunshine Work Phone: 1(675)538-603369 [place] [address] 05-09-2023 12:53-0400 Diastolic blood pressure 87 mm[Hg] Dr. Brittany Sunshine Work Phone: [facility] 05-09-2023 12:53-0400 Heart rate 84 /min Dr. Brittany Sunshine Work Phone: 4(876)918-959869 [place] [address] 05-09-2023 12:53-0400 Respiratory rate 16 /min Dr. Brittany Sunshine Work Phone: [facility] 05-09-2023 12:53-0400 Systolic blood pressure 149 mm[Hg] Dr. Brittany Sunshine Work Phone: [facility] 04-06-2023 10:48-0400 Diastolic blood pressure 84 mm[Hg] Dr. Brittany Sunshine Work Phone: [facility] 04-06-2023 10:48-0400 Systolic blood pressure 126 mm[Hg] Dr. Brittany Sunshine Work Phone: [facility] 04-06-2023 08:59-0400 Body mass index (BMI) [Ratio] 25 kg/m2 Dr. Brittany Sunshine Work Phone: [facility] 04-06-2023 08:59-0400 Body temperature 96.1 [degF] Dr. Brittany Sunshine Work Phone: [facility] 04-06-2023 08:59-0400 Body weight 68.[address] Brittany Sunshine Work Phone: [facility] 04-06-2023 08:59-0400 Heart rate 80 /min Dr. Brittany Sunshine Work Phone: [facility] 04-06-2023 08:59-0400 Respiratory rate 18 /min Dr. Brittany Sunshine Work Phone: [facility] 04-06-2023 08:59-0400 SaO2% (BldA) [Mass fraction] 99 % Dr. Brittany Sunshine Work Phone: [facility] 02-22-2023 11:51-0400 Body temperature 98.5 [degF] Dr. Brittany Sunshine Work Phone: [facility] 02-22-2023 11:51-0400 Diastolic blood pressure 76 mm[Hg] Dr. Brittany Sunshine Work Phone: [facility] 02-22-2023 11:51-0400 Heart rate 80 /min Dr. Brittany Sunshine Work Phone: [facility] 02-22-2023 11:51-0400 Respiratory rate 14 /min Dr. Brittany Sunshine Work Phone: [facility] 02-22-2023 11:51-0400 Systolic blood pressure 136 mm[Hg] Dr. Brittany Sunshine Work Phone: [facility] 01-23-2023 08:16-0400 Body height 165.[address] Brittany Sunshine Work Phone: [facility] 01-23-2023 08:16-0400 Body mass index (BMI) [Ratio] 25 kg/m2 Dr. Brittany Sunshine Work Phone: [facility] 01-23-2023 08:16-0400 Body temperature 99 [degF] Dr. Brittany Sunshine Work Phone: [facility] 01-23-2023 08:16-0400 Body weight 68.[address] Brittany Sunshine Work Phone: [facility] 01-23-2023 08:16-0400 Diastolic blood pressure 70 mm[Hg] Dr. Brittany Sunshine Work Phone: [facility] 01-23-2023 08:16-0400 Heart rate 87 /min Dr. Brittany Sunshine Work Phone: [facility] 01-23-2023 08:16-0400 Respiratory rate 16 /min Dr. Brittany Sunshine Work Phone: [facility] 01-23-2023 08:16-0400 SaO2% (BldA) [Mass fraction] 97 % Dr. Brittany Sunshine Work Phone: [facility] 01-23-2023 08:16-0400 Systolic blood pressure 112 mm[Hg] Dr. Brittany Sunshine Work Phone: [facility] 12-29-2022 16:43-0400 Body temperature 98.2 [degF] Dr. Brittany Sunshine Work Phone: [facility] 12-29-2022 16:43-0400 Diastolic blood pressure 62 mm[Hg] Dr. Brittany Sunshine Work Phone: [facility] 12-29-2022 16:43-0400 Heart rate 75 /min Dr. Brittany Sunshine Work Phone: [facility] 12-29-2022 16:43-0400 Respiratory rate 16 /min Dr. Brittany Sunshine Work Phone: [facility] 12-29-2022 16:43-0400 SaO2% (BldA) [Mass fraction] 99 % Dr. Brittany Sunshine Work Phone: 4(038)013-955469 [place] [address] 12-29-2022 16:43-0400 Systolic blood pressure 104 mm[Hg] Dr. Brittany Sunshine Work Phone: 5(344)975-260869 [place] [address] 09-12-2022 10:03-0500 Body height 165.[address] Brittany Sunshine Work Phone: 7(536)377-695653 [place] [address] 09-12-2022 10:03-0500 Body mass index (BMI) [Ratio] 25 kg/m2 Dr. Brittany Sunshine Work Phone: 9(673)295-276053 [place] [address] 09-12-2022 10:03-0500 Body weight 68.[address] Brittany Sunshine Work Phone: 7(967)273-084969 [place] [address] 09-12-2022 10:03-0500 Diastolic blood pressure 78 mm[Hg] Dr. Brittany Sunshine Work Phone: 8(225)324-814569 [place] [address] 09-12-2022 10:03-0500 Systolic blood pressure 122 mm[Hg] Dr. Brittany Sunshine Work Phone: 6(220)207-766769 [place] [address] 07-31-2022 11:51-0500 Body temperature 98.5 [degF] Dr. Brittany Sunshine Work Phone: 9(348)889-604169 [place] [address] 07-31-2022 11:51-0500 Diastolic blood pressure 80 mm[Hg] Dr. Brittany Sunshine Work Phone: 5(293)205-334769 [place] [address] 07-31-2022 11:51-0500 Heart rate 95 /min Dr. Brittany Sunshine Work Phone: 3(524)799-275469 [place] [address] 07-31-2022 11:51-0500 Respiratory rate 17 /min Dr. Brittany Sunshine Work Phone: [facility] 07-31-2022 11:51-0500 SaO2% (BldA) [Mass fraction] 97 % Dr. Brittany Sunshine Work Phone: [facility] 07-31-2022 11:51-0500 Systolic blood pressure 140 mm[Hg] Dr. Brittany Sunshine Work Phone: [facility] 07-20-2022 15:43-0500 Body temperature 98.5 [degF] Dr. Brittany Sunshine Work Phone: 8(259)994-069769 [place] [address] 07-20-2022 15:43-0500 Diastolic blood pressure 78 mm[Hg] Dr. Brittany Sunshine Work Phone: 9(130)249-067053 [place] [address] 07-20-2022 15:43-0500 Heart rate 113 /min Dr. Brittany Sunshine Work Phone: 9(726)829-996653 [place] [address] 07-20-2022 15:43-0500 Respiratory rate 14 /min Dr. Brittany Sunshine Work Phone: 4(598)711-162769 [place] [address] 07-20-2022 15:43-0500 SaO2% (BldA) [Mass fraction] 98 % Dr. Brittany Sunshine Work Phone: 7(227)690-735069 [place] [address] 07-20-2022 15:43-0500 Systolic blood pressure 122 mm[Hg] Dr. Brittany Sunshine Work Phone: 4(719)962-224153 [place] [address] 07-06-2022 10:00-0500 Body mass index (BMI) [Ratio] 0.1 kg/m2 Dr. Brittany Sunshine Work Phone: 9(692)872-747469 [place] [address] 07-06-2022 10:00-0500 Body temperature 98.5 [degF] Dr. Brittany Sunshine Work Phone: [facility] 07-06-2022 10:00-0500 Body weight 69.[address] Brittany Sunshine Work Phone: 3(090)647-955169 [place] [address] 07-06-2022 10:00-0500 Diastolic blood pressure 80 mm[Hg] Dr. Brittany Sunshine Work Phone: 8(837)887-760069 [place] [address] 07-06-2022 10:00-0500 Heart rate 99 /min Dr. Brittany Sunshine Work Phone: [facility] 07-06-2022 10:00-0500 Respiratory rate 18 /min Dr. Brittany Sunshine Work Phone: [facility] 07-06-2022 10:00-0500 SaO2% (BldA) [Mass fraction] 99 % Dr. Brittany Sunshine Work Phone: [facility] 07-06-2022 10:00-0500 Systolic blood pressure 110 mm[Hg] Dr. Brittany Sunshine Work Phone: [facility] Encounters Encounter Date Encounter Type Care Provider Facility Start: 04-25-2025 ambulatory Hansa Brooks NP Facil ity:[facility] Start: 03-17-2025 Encounter for genera l adult medical examination without abnormal findings Mita Sawyer [facility] Start: 03-11-2025 End: 03-11-[address] Mita Sawyer MD Work Phone: -[facility] Start: 03-11-2025 End: 03-11-[address] Mita Sawyer MD -[facility] Work Phone: Start: 03-10-2025 End: 03-10-[address] Mita Sawyer MD -[facility] Work Phone: Start: 03-10-2025 End: 03-11-[address] Mita Sawyer MD Work Phone: -[facility] Start: 11-29-2024 End: 11-29-2024 Patient encounter procedure Jeanette GRAYSON -[facility] Work Phone: Start: 11-29-2024 End: 11-29-2024 ambulatory Mita Sawyer Facility:[facility] Start: 09-27-2024 End: 09-27-2024 ambulatory Mita Sawyer Facility:[facility] Start: 09-24-2024 End: 09-24-2024 ambulatory Mita Sawyer Facility:[facility] Start: 09-24-2024 End: 09-24-2024 ambulatory Hansa Brooks ARTERIAL EMBALMER Facility:[facility] Start: 09-18-2024 End: 09-18-2024 ambulatory Debbie Jimenez Facility:[facility] Start: 08-19-2024 End: 08-19-2024 ambulatory Debbie Lara Salandrew Facility:[facility] Start: 07-09-2024 End: 07-09-2024 ambulatory Debbie Jimenez Facility:[facility] Start: 09-19-2023 End: 09-19-[address] Mita Sawyer Work Phone: [facility] Work Phone: Start: 09-19-2023 End: 09-19-[address] Mita Sawyer Work Phone: [facility] Specimen Work Phone: Start: 09-19-2023 End: 09-19-[address] Mita Sawyer Work Phone: [facility] [place] Work Phone: Start: 09-16-2023 End: 09-16-[address] Mita Sawyer Work Phone: [facility] Work Phone: Start: 08-18-2023 Non-patient / Non-visit Dr. Lloyd Work Phone: [facility] Start: 08-18-2023 End: 08-18-2023 Admission to same day surgery center Dr. Mita Sawyer Work Phone: [facility]End[facility] Work Phone: Start: 08-18-2023 End: 08-18-[address] Mita Sawyer Work Phone: [facility] Work Phone: Start: 07-24-2023 Non-patient / Non-visit Dr. Frias Work Phone: [facility] Work Phone: Start: 07-21-2023 Non-patient / Non-visit Dr. Frias Work Phone: [facility] Start: 07-21-2023 End: 07-21-[address] Brittany Sunshine Work Phone: [facility] Work Phone: Start: 07-21-2023 End: 07-21-[address] Brittany Sunshine Work Phone: [facility]Outpatient Breast Imaging Work Phone: Start: 06-30-2023 End: 06-30-[address] Brittany Sunshine Work Phone: [facility] Work Phone: Start: 06-26-2023 End: 06-26-[address] Brittany Sunshine Work Phone: [facility] Work Phone: Start: 06-14-2023 End: 06-14-[address] Brittany Sunshine Work Phone: [facility] Work Phone: Start: 05-09-2023 End: 05-09-[address] Brittany Sunshine Work Phone: [facility] Work Phone: Start: 04-10-[address] Britt[facility] Sun[facility] Work Phone: Start: 04-10-2023 End: 04-10-2023 Non-patient / Non-visit Dr. Brittany Sunshine Work Phone: [facility] Work Phone: Start: 04-07-2023 End: 04-07-[address] Brittany Sunshine Work Phone: [facility] Start: 04-06-2023 End: 04-06-[address] Brittany Sunshine Work Phone: [facility] Work Phone: Start: 02-22-2023 End: 02-22-[address] Brittany Sunshine Work Phone: [facility] Work Phone: Start: 02-22-2023 End: 02-22-[address] Brittany Sunshine Work Phone: [facility] Work Phone: Start: 02-22-2023 End: 02-22-[address] Brittany Sunshine Work Phone: [facility] Work Phone: Start: 01-23-2023 End: 01-23-[address] Brittany Sunshine Work Phone: [facility] Work Phone: Start: 12-29-2022 End: 12-29-[address] Brittany Sunshine Work Phone: [facility] Work Phone: Start: 10-26-2022 End: 10-26-[address] Brittany Sunshine Work Phone: [facility] Work Phone: Start: 10-26-2022 End: 10-26-[address] Brittany Sunshine Work Phone: [facility] [place] Start: 09-12-2022 End: 09-12-[address] Brittany Sunshine Work Phone: [facility] [place] Start: 07-31-2022 End: 07-31-[address] Brittany Sunshine Work Phone: [facility] Start: 07-20-2022 End: 07-20-[address] Brittany Sunshine Work Phone: [facility] Start: 07-06-2022 End: 07-06-[address] Brittany Sunshine Work Phone: [facility] Start: 06-28-2022 End: 06-28-2022 ambulatory [facility] Work Phone: Start: 06-28-2022 End: 06-28-2022 Patient encounter procedure [facility] Start: 06-22-2021 End: 06-22-2021 Patient encounter procedure DEBBIE ALEXANDER MD [facility] Start: 06-16-2021 End: 06-16-[address] BRITTANY SUNSHINE MD [facility] Start: 03-06-2017 End: 03-07-2017 Emergency department patient visit SHORTY L ALFIEOFE Facility:[facility] Procedures Date Procedure Procedure Detail Performing Clinician Start: 08-18-[address] iMta Sawyer Work Phone: Start: 07-21-2023 Screening mammography Luis Alfredo Sunshine Work Phone: Start: 02-22-[address] Brittany Sunshine Work Phone: Start: 10-26-2022 MRI of bilateral mainor asts with contrast Dr. Brittany Sunshine Work Phone: Start: 10-14-[address] BRITTANY SUNSHINE MD Start: 10-14-2017 Ligation of fallopian tube DR BRITTANY SUNSHINE MD Start: 06-02-[address] BRITTANY SUNSHINE MD History of tonsillectomy Hx of tonsillect tan Dr. Brittany Sunshine Work Phone: Tonsillectomy DR BRITTANY Maher Plan of Treatment Date Care Activity Detail Author Start: 09-19-2023 Liquid based cervical cytology screening [facility] Start: 08-18-2023 Colonoscopy w/biopsy single/multiple COLONOSCOPY AND BIOPSY [facility] Start: 08-18-2023 Egd removal tumor polyp/other lesion snare tech EGD REMOVE LESION SNARE [facility] Start: 08-18-2023 Egd transoral biopsy single/multiple EGD BIOPSY SINGLE/MULTIPLE [facility] Start: 08-18-2023 Patient discharge [facility] Start: 04-06-2023 Patient referral [facility] Work Phone: Start: 06-28-2022 Screening mammography SCRN MAMM (CAD)W/DARIUSZ BILAT [facility] Work Phone: CBC W Auto Different ial panel - Blood [facility] Comprehensive metabo lic 1999 panel - Serum or Plasma [facility] Lipid 1996 panel - S yi or Plasma [facility] Path report.final Dx Spec [facility] Patient referral [facility] Work Phone: [facility] Immunizations Immunization Date Immunization Notes Care Provider Fa cility 10-09-2017 tetanus toxoid, redu jitendra diphtheria toxoid, and acellular pertussis vaccine, adsorbed Dr. Brittany Sunshine Work Phone: [facility] 04-30-2016 tetanus toxoid, redu jitendra diphtheria toxoid, and acellular pertussis vaccine, adsorbed DR BRITTANY SUNSHINE MD [facility] Payers Date Payer Category Payer Self-pay 2024 Unknown [id number] 2023 Unknown [id number] 2014 Unknown [id number] Unknown ANTHEM [id number] Unknown [id number] 1e [id number] Unknown [id number] 2.16.8 [id number] Unknown [id number] 2.16.8 [id number] Unknown [id number] 2.16.8 [id number] Unknown [id number] 2.16.8 [id number] Unknown [id number] 2.16.8 [id number] Unknown [id number] 2.16.8 [id number] Unknown [id number] 2.16.8 [id number] Unknown [id number] 2.16.8 [id number] Unknown [id number] 2.16.8 [id number] Unknown [id number] 2.16.8 [id number] Social History Date Type Detail Facility Start: 02-01-2019 Never smoked t obacco (finding) [facility] Start: 1985 Sex Assigned At Female [facility] Start: 09-12-2022 End: 09-19-2023 Tobacco smoking status GAIS Unknown if ever smoked [facility] Start: 03-10-2025 Tobacco smoking status NHIS Ex-smoker (finding) [facility] NEGATED: Highlighted row [facility] Medical Equipment Procedure Code Equipment Code Equipment Origin al Text Equipment Identifier Dates FDA Start: 10-14-2017 FDA Start: 10-14-2017 Goals Date Patient Goal Desired Activity /State Mental Status Date Assessment Result Facility 08-18-2023 Cognitive function Voice/Name;Touch/Mya rubin [facility] Work Phone: Clinical Notes 08-18-2023 to 11-29-2024 Note Date & Type Note Facility 11-29-2024 Evaluation note Diagnosis Onset Date Resolution Intermittent palpitations acute November 29, 2024 3:13pm Immunization declined noneactive Feb 8:50am Screening for cardiovascular condition noneactive March 102024 8:50am Palpitations noneactive March 10 8:50am Mild intermittent asthma in adult without complication noneactive March 10, 2025 8:50am Gastritis noneactive March 10 8:50am Encounter for annual physical exam noneactive March 10, 2025 8:50am [facility] Work Phone: [phone] Evaluation note* Diagnosis Onset Date Resolution Status Admit Date Intermittent palpitations acute November 29, 2024 3:13pm Screening for depression noneactive March 10, 2025 8:50am Screening for cardiovascular condition noneactive March 10, 2025 8:50am Palpitations noneactive March 10 8:50am Menstrual irregularity noneactive 2024 8:50am Lipoma noneactive March 10 8:50am Mild intermittent asthma in adult without complication noneactive March 10, 2025 8:50am Gastritis noneactive March 10 8:50am Encounter for annual physica l exam noneactive March 10, 2025 8:50am [facility] Work Phone: 1(760) 595-178712-22-2023 History and physical note Author Marvin Lopez [facility] August 18, 2023 7:27am Note Date/Time August 18, 2023 7:27am [facility] Medical Records Department [address] [place] [address] History & Physical Exam 08/18/23723 MR#: [id number] Acct: [id number] Name: GREY RIZO Rep #:[id number] : 1985 38 From: Marvin Maher PCP: Dr. Mita Sawyer MD Status:[facility] Location: [place] [address] History and Physical Date of Admission: 08/18/23 Date of Service: 05/09/23 MR#: [id number] Acct: [id number] Name: GREY RIZO Rep #: [id number] : 1985 Provider: Dr. Marvin Lopez MD Age/Sex: 38/F Location: [facility] Status: Signed Intake Vital Signs 04/06/2308:59 05/09/2312:53 Height 5 ft 5 in 5 ft 3 in Weight: 150 lb 4 oz 150 lb BMI 25.0 26.5 BP 122/92 H 149/87 H Blood Pressure Location Lt brachial Rt brachial Position Sitting Sitting Respiration 18 16 Pulse 80 84 Pulse Source Monitor Monitor Temp 96.1 F L 97.3 F L Temp Source Temporal Tympanic Pulse Oximetry (%) 99 Oxygen Delivery Method room air Intake Visit Reasons: COLONOSCOPY Chief Complaint: establish care Allergies latex Allergy (Mild, Verified 05/09/23 12:54) Rashciprofloxacin [From Cipro] Allergy (Verified 05/09/23 12:54) Othergluten Adverse Reaction (Intermediate, Verified 05/09/23 12:54) Hives Medications cetirizine 10 mg capsule (Zyrtec) 10 mg PO DAILY PRN 09/12/22 [History Confirmed 05/09/23] levonorgestrel-ethinyl estradiol 0.1 mg-20 mcg tablet (Aviane) 1 tab PO QDAY #84tabs 09/12/22 [Rx Confirmed 05/09/23] ibuprofen 200 mg capsule 200 mg PO Q6H PRN 12/29/22 [History Confirmed 05/09/23] albuterol sulfate 90 mcg/actuation aerosol inhaler gm inhalation 01/23/23 [History Confirmed 05/09/23] PFSH Medical History Allergies Anemia Asthma Colonoscopy planned (07/28/18) Family history of breast cancer Family history of breast cancer in mother Family history of colon cancer in father Family history of ovarian cancer FHx: migraine headaches Hematuria Hives Hx: UTI (urinary tract infection) Irritable bowel syndrome Kidney stones Vitamin deficiency Surgical History History of delivery History of tubal ligation Hx of tonsillectomy Family History Father Heart disease Colon cancer, Onset Age: 43 Diabetes Myocardial infarction HypertensionMother Breast cancer, Onset Age: 50 Alcoholism Anxiety Cancer Depression STD (female) Suicide attemptGrandmother , due to breast cancer Breast cancer, Onset Age: 50 paternal grandmother Leukemia CancerGrandfather Heart disease Colon cancer, Onset Age: 50 paternal grandfather HypertensionGrandmother , due to breast cancer Breast cancer, Onset Age: 45 maternal grandmother CancerGrandfather , due to colon cancer Colon cancer, Onset Age: 62 Maternal Grandfather Myocardial infarction HypertensionBrother MelanomaSon SeizuresOther Arthritis CVA (cerebral vascular accident) High cholesterol Social History adopted: No household members: spouse and children housing: house number of children: 2 current occupational status: employed 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 They are referred for surgical consultation from Dr. Sawyer. Given her family history, patient has had prior colonoscopy in 2018. She states the results of the prior colonoscopy including finding of small internal hemorrhoids, but given her family history there was a recommended interval for follow-up was 5 years. They describe their bowel habits as occasionally characterized with loose stool,but more recently she has experienced constipation. They have approximately 1 bowel movement per day, but recently states that it has been 2 days without a bowel movement. Mrs. Rizo denies any straining and tries to limit her toilet time. They initially denied noticing recent bleeding or dark stools, but later did confess that they have noticed some hemorrhoid bleeding with single spottingof the tissue paper 1-2 times per month. They do not regularly take fiber supplements since she has a gluten sensitivity and is unsure which products are made with wheat. They do consume significant fiber in their regular diet and she states that they are consciously transitioning her diet to all natural foodsas a family. Patient, as above, does have a family history of colon cancer. She relates thather father was diagnosed at the age of 43 (in 2006) required a colon resection with a colostomy for 6 months before reversal. She states that he became symptomatic with some blood on his stool prior to this diagnosis. She initiallycharacterizes this as a rectal cancer, but then states that it was a colon and rectal cancer. Beyond her father she notes a diagnosis of rectal cancer and paternal grandfather was diagnosed in his 50s. She states that he underwent surgery but no adjuvant therapy and lived into his 80s. (There also appears to be a strong history for breast cancer, familially?speaking). The patient's weight is stable. The patient is not prescribed anticoagulants/blood thinners. Relevant prior abdominal surgical history includes: 2 prior cesareans Patient does have a significant history of GERD and heartburn. Patient notes that she had roaring heartburn during her 2 pregnancies. She states that she went to a chiropractor who told her that she had a hiatal hernia, however, she notes no imaging scans were performed to confirm this diagnosis. She states that this is now something that she experiences a couple of times per month and uses sdaq-[id number]-[id number] Tums to relieve her discomfort. Lastly, she notes noting a round lump sensation after periods of heartburn that persist for several days after the heartburn is relieved. She has no prior history of EGD. Outside of a GI perspective, patient is currently under work-up for SVT. She states she has a history of palpitations and underwent ambulatory telemetry where she was found to have a run of SVT. She is due to meet with cardiology next week. ROS General General: No weight change, appetite, fatigue, colon cancer, breast cancer or weakness HEENT HEENT: No difficulty swallowing, eye injury, eye surgery, swollen glands or hoarseness Endo Endocrine: No thyroid disease, diabetes mellitus, thyroid cancer, Hair loss, heat intolerance or cold intolerance Skin Skin: No rash or changing moles Breast Breast: No left breast lump, right breast lump, nipple discharge, breast pain, abnormal mammogram, abnormal US or breast enlargement Musc Musculoskeletal: Yes back problems Cardio Cardiovascular: No murmur, pacemaker, heart disease, atrial fibrillation, high blood pressure, heart attack, heart stent, palpitations, shortness of breat withexertion or chest pain Psych Psychiatric: No depression, anxiety or hearing voices Resp Respiratory: No shortness of breath, No sleep apnea, No cough, No COPD, Yes asthma, No emphysema and No wheezing Gastro Gastrointestinal: No abdominal pain, No nausea or vomiting, Yes diarrhea, Yes constipation, No blood in stool, Yes acid reflux, No hemorrhoids, Yes ulcers, Nogallbladder problem and No black,tarry stools Max Hematologic: No blood thinners, No blood disorders, No bleeding, Yes anemia and No blood clots Neuro Neurologic: No system reviewed and no additional complaints, except as documented, No as per HPI, No abnormal gait, No abnormal hearing, No abnormal movements, No abnormal speech, No behavioral changes, No burning sensations, No confusion, No convulsions, No disequilibrium, No dizziness, No localized weakness, No frequent falls, No headache(s), No lack of coordination, No loss ofvision, No memory loss, No numbness, No other visual disturbances, No radicular pain, No restless legs, No sensory deficit, No syncope, No tingling, No tremor(s), No weakness and No other Exam Const General: cooperative, healthy appearing, comfortable and no acute distress Resp Effort & Inspection: normal respiratory effort Auscultation: no rales, no rhonchi and no wheezes Cardio Other: Patient appears to have intermittent PACs but otherwise in regular and rhythm GI Other: Normal habitus, umbilical piercing present, no other scars, nondistended, soft, nontender to palpation x4 quadrants Assessment and Plan Assessment and Plan (1) Family history of colon cancer: Plan: Patient is a 38-year-old female who began screening colonoscopies 5 years ago given her history of familial colon cancers in both her father and paternal grandfather?diagnosed at 43 and 50, respectively. Patient states that her colonoscopy was unremarkable save for finding of small internal hemorrhoids. Overall, she notes that her bowel habits have been relatively normal but experiences occasional constipation and diarrhea. She also admits to some spotting from what she believes is hemorrhoids when she experiences periods of constipation. Unfortunately the official records from patient's prior colonoscopy are not immediately available so we will seek these records prior tocompleting a updated screening colonoscopy. Patient wishes to undergo colonoscopy over the winter break so we will plan to use the interval time to obtain these records and follow-up on her cardiology evaluation for SVT. Given her history of constipation I have requested a 2-day bowel prep. (2) GERD (gastroesophageal reflux disease): Status: Acute Comment: Patient complains of significant heartburn and reflux symptoms. She was previously told she may have a hiatal hernia, however, she denies any prior imaging to further evaluate this possibility. Given her symptoms she makes rather regular use of [id number] antacids and specifically requests an upper scope to evaluate this issue further to see if she requires additional medical management. I did discuss with her the physiology behind hiatal herniasand the need to separate mealtime from bedtime. Hand drawings were used to try to illustrate these points. Plan: ? Diagnostic EGD under local MAC with colonoscopy proposed above I have examined the patient the following changes are noted: Mrs. Rizo reports that overall things have trended in a positive direction for since our last visit in April of this year. She does confirm that she has been diagnosed with paroxysmal SVT and is due for an ablation procedure this summer. Regardingher GI health, however, she still describes a globus sensation when swallowing, but reports that her reflux is better now that she has intentionally begun avoiding eating close to bedtime. She also is pleased to report that her constipation issues are largely resolved after being diligent about incorporating more water. She confirms that she completed prep and dissipation of today's procedure and that her output is now clear. We will proceed for EGD and update screening colonoscopy in this high risk patient as discussed above. 08/18/23726 <Electronically signed by Marvin Lopez MD> Cosigner Signature (if applicable): CC: Dr. Mita Sawyer MD; Dr. Marvin Lopez MD~ Signed [facility] Work Phone: 1([phone]) 640-211312-22-2023 Procedure [facility] 08-18-2023 Procedure [facility]12-22-2023 Procedure note [facility]12-22-2023 Procedure [facility] Evaluation + Plan note Future Appointments Appointment Date:06/22/2021 02:15:00 PM Scheduled Provider: Location:XRAY Appointment Type:[place] Mammogram Screening Bilateral w/ Dariusz Appointment Date:07/21/2021 12:15:00 PM [place]uled [place] [id number] Location:[place] Appointment Type:PT [facility] Future Scheduled Tests Radiology* [place] Mammo Screening Bilateral w/ Dariusz 06/22/21 [facility] evaluation + Plan note Future Appointments Appointment Date:07/21/2021 12:15:00 PM Scheduled Provider:[place] [id number] Location:[facility] Appointment Type:PT [facility] Evaluation noteNo assessment information available [facility] Work Phone: Evaluation note* Diagnosis Onset Date Resolution Status COVID-19 resolved Dysmenorrhea acute Family history of breast cancer acute Family history of breast cancer in mother acute Family history of colon cancer in father acute Family history of ovarian cancer acute Menorrhagia with regular cycle acute Encounter for routine gynecological examination noneactive [facility] Work Phone: Evaluation note* Diagnosis Onset Date Resolution Status Acute pharyngitis acute Hematuria acute [facility] Work Phone: Evaluation note* Diagnosis Onset Date Resolution Status History of vitamin D deficiency noneactive Immunization declined noneac tive Food intolerance in adult no neactive Family history of colon cancer noneactive Establishing care with new doctor, encounter for noneactive Palpitations noneactive Mild intermittent asthma in adult without complication noneactive Mixed hyperlipidemia noneact nick GERD (gastroesophageal reflux disease) acute Family history of colon cancer noneactive Intermittent palpitations ac false pass Acute sinusitis acute [facility] Work Phone: Evaluation note* Diagnosis Onset Date Resolution Status GERD (gastroesophageal reflux disease) acute Family history of colon cancer noneactive Intermittent palpitations ac false pass Acute sinusitis acute [facility] Work Phone: Evaluation note* Diagnosis Onset Date Resolution Status Intermittent palpitations ac false pass Dysmenorrhea acute Family history of breast cancer in mother acute Menorrhagia with regular cycle acute Family history of breast cancer chronic Encounter for routine gynecological examination noneactive [facility] Work Phone: Hospital course Narrative No data available for this section [facility] Discharge instructions No data available for this section [facility] Reason for referral (narrative)No reason for referral [facility] Work Phone: Summary Purpose Family History No Family History Records Found Relationship Condition Age at Onset Recorded Date/T rob father Cardiac disease Unknown Malignant neoplasm of colon 43 mother Malignant neoplasm of breast 50 grandmother Malignant neoplasm of breast 50 Leukemia Unknown grandfather Cardiac disease Unknown Malignant neoplasm of colon 50 grandmother Malignant neoplasm of breast 45 grandfather Malignant neoplasm of colon 62 Relationship Condition Age at Onset Recorded Date/T rob Not Specified High blood cholesterol Unknown Arthritis Unknown Cerebrovascular accident (CVA) Unknown father Cardiac disease Unknown Malignant neoplasm of colon 43 Diabetes mellitus Unknown Myocardial infarction Unknown Hypertension Unknown mother Malignant neoplasm of breast 50 Alcoholism Unknown Anxiety Unknown Malignant neoplasm Unknown Depression Unknown Sexually transmitted disease in female Un known Attempted suicide Unknown grandmother Malignant neoplasm of breast 50 Leukemia Unknown grandfather Cardiac disease Unknown Malignant neoplasm of colon 50 grandmother Malignant neoplasm of breast 45 grandfather Malignant neoplasm of colon 62 brother Malignant melanoma Unknown son Seizures Unknown Relationship Condition Age at Onset Recorded Date/T rob Not Specified High blood cholesterol Unknown Arthritis Unknown Cerebrovascular accident (CVA) Unknown father Cardiac disease Unknown Malignant neoplasm of colon 43 Diabetes mellitus Unknown Myocardial infarction Unknown Hypertension Unknown mother Malignant neoplasm of breast 50 Alcoholism Unknown Anxiety Unknown Malignant neoplasm Unknown Depression Unknown Sexually transmitted disease in female Un known Attempted suicide Unknown Heart failure Unknown Hepatitis C virus infection Unknown Cardiac disease Unknown grandmother Malignant neoplasm of breast 50 Leukemia Unknown grandfather Cardiac disease Unknown Malignant neoplasm of colon 50 grandmother Malignant neoplasm of breast 45 grandfather Malignant neoplasm of colon 62 brother Malignant melanoma Unknown son Seizures Unknown Advance Directives No Advanced Directives Records Found Advance Directive Response Recorded Date/ Time Living Will No August 15 023 2:29pm Power of Grinder Set Up Operator Universal No August 15, 2023 2:29pm Advance Directive Response Recorded Date/ Time Living Will No August 15 023 3:29pm Do you have a Healthcare Power of Grinder Set Up Operator Universal? No August 15, 2023 3:29pm Living Will No December 12, 2023 4:09pm Do you have a Healthcare Power of Grinder Set Up Operator Universal? 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 CARE - C P NT 30 DAY MONITOR PALPS COLONOSCOPY SVT (DIGNA) CHEST CONGESTION/IRRITATED THROAT/ZHOU/BA/COUGH COUGH, SINUS CONGESTION SCREENING Amb Documentation Reason for Visit History of vitamin D deficiency Immunization declined Food intolerance in adult Family history of colon cancer Establishing care with new doctor, encounter for Palpitations Mild intermittent asthma in adult without complication Mixed hyperlipidemia GERD (gastroesophageal reflux disease) Family history of colon cancer Intermittent palpitations Acute sinusitis Chief Complaint COLONOSCOPY SVT (DIGNA) CHEST CONGESTION/IRRITATED THROAT/ZHOU/BA/COUGH COUGH, SINUS CONGESTION SCREENING Amb Documentation Reason for Visit GERD (gastroesophage al reflux disease) Family history of colon cancer Intermittent palpitations Acute sinusitis Chief Complaint SVT (DIGNA) CHEST CONGESTION/IRRITATED THROAT/ZHOU/BA/COUGH COUGH, SINUS CONGESTION SCREENING Amb Documentation RIGHT EAR DISCOMFORT/SINUS CONCERNS 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) PAP Reason for Visit Intermittent palpita tions Dysmenorrhea Family history of breast cancer in mother Menorrhagia with regular cycle Family history of breast cancer Encounter for routine gynecological examination Chief Complaint Admit Date 1 Y FU November 29, 2024 3:13 pm YEARLY March 10, 2025 8:50 am Reason for Visit Admit Date Intermittent palpitations November 29 3:13pm Immunization declined March 10, 2025 8: 50am Screening for cardiovascular condition J penny 2024 8:50am Palpitations March 10, 2025 8:50 am Mild intermittent asthma in adult withou t complication March 10, 2025 8:50am Gastritis March 10, 2025 8:50 am Encounter for annual physical exam March 10, 2025 8:50am Chief Complaint Admit Date 1 Y FU November 29, 2024 3:13 pm YEARLY March 10, 2025 8:50 am e-order March 11, 2025 8:57 am Reason for Visit Admit Date Intermittent palpitations November 29 3:13pm Screening for depression March 10, 2025 8:50am Screening for cardiovascular condition J penny 2024 8:50am Palpitations March 10, 2025 8:50 am Menstrual irregularity March 10, 2025 8 :50am Lipoma March 10, 2025 8:50 am Mild intermittent asthma in adult withou t complication March 10, 2025 8:50am Gastritis March 10, 2025 8:50 am Encounter for annual physical exam March 10, 2025 8:50am Additional Source Comments INFORMATION SOURCE (unrecogn ized section and content) DATE CREATED AUTHOR 02/21/2018 [employer] DATE CREATED AUTHOR AUTHOR'S ORGANIZ ATION 03/18/2022 [employer] ([place]) DATE CREATED AUTHOR AUTHOR'S ORGANIZ ATION 04/25/2025 [facility] Goals (unrecognized section and content) Goals may be documented in a n alternate section Care Teams (unrecognized sec tion and content) Team Status: Active Member Role Status Dates Dr. Brittany Sunshine MD Primary Care Provider Active Team Status: Inactive Member Role Status Dates Dr. Brittany Sunshine MD Primary Care Provider, Referring Pr ovider Active Hansa Brooks NP ARTERIAL EMBALMER-C Attending Provider Active Team Status: Inactive Member Role Status Dates Dr. Brittany Sunshine MD Primary Care Provider, Referring Pr ovider Active Debbie Jimenez PA, PA Attending Provider Active Team Status: Inactive Member Role Status Dates Dr. Brittany Sunshine MD Primary Care Provider, Referring Pr ovider Active Jerry Mccauley PA, PA Attending Provider Active Team Status: Inactive Member Role Status Dates Dr. Brittany Sunshine MD Primary Care Provider, Referring Pr ovider Active Bria GRAYSON, PA Attending Provider Active Team Status: Inactive Member Role Status Dates Dr. Brittany Sunshine MD Primary Care Provider Active Hansa Brooks NP, NP-C Attending Provider, Referring Provider Active Team Status: Inactive Member Role Status Dates Dr. Brittany Sunshine MD Primary Care Provider Active Debbie GRAYSON, PA Attending Provider, Referring Pr ovider Active Team Status: Active Member Role Status Dates Dr. Mita Sawyer MD Primary Care Provider Active Team Status: Inactive Member Role Status Dates Dr. Brittany Sunshine MD Primary Care Provider, Referring Pr ovider Active Dr. Mita Sawyer MD Attending Provider Active Team Status: Inactive Member Role Status Dates Dr. Mita Sawyer MD Primary Care Provider, Referri ng Provider Active Dr. Marvin Lopez MD Attending Provider Active Team Status: Inactive Member Role Status Dates Dr. Mita Sawyer MD Primary Care Provider, Referri ng Provider Active Dr. Kai Trimble MD Attending Provider Active Team Status: Active Member Role Status Dates Dr. Mita Sawyer MD Primary Care Provider, Referri ng Provider Active Dr. Ashanti Hernandez MD Attending Provider Activ e Team Status: Inactive Member Role Status Dates Dr. Mita Sawyer MD Primary Care Provider, Referri ng Provider Active Debbie Jimenez PA, PA Attending Provider Active Team Status: Inactive Member Role Status Dates Dr. Mita Sawyer MD Primary Care Provider, Referri ng Provider Active Jerry GRAYSON, PA Attending Provider Active Team Status: Active Member Role Status Dates Dr. Mita Sawyer MD Primary Care Provider Active Dr. Kai Trimble MD Attending Provider Active Team Status: Active Member Role Status Dates Dr. Mita Sawyer MD Primary Care Provider Active Randell Jolly ARTERIAL EMBALMER, ARTERIAL EMBALMER-C Attending Provider Active Team Status: Inactive Member Role Status Dates Dr. Kai Trimble MD Attending Provider Active Dr. Mita Sawyer MD Primary Care Provider Active Hansa Brooks ARTERIAL EMBALMER, ARTERIAL EMBALMER-C Referring Provider Active Team Status: Inactive Member Role Status Dates Dr. Mita Sawyer MD Primary Care Pro vider, Attending Provider, Referring Provider Active Team Status: Active Member Role Status Dates Dr. Mita Sawyer MD Primary Care Pro vider, Attending Provider, Referring Provider Active Team Status: Active Member Role Status Dates Dr. Mita Sawyer MD Primary Care Provider Active Dr. Kai Trimble MD Attending Provider, Referring Pro vider Active Team Status: Active Member Role Status Dates Dr. Mita Sawyer MD Primary Care Provider, Referri ng Provider Active Dr. Marvin Loepz MD Attending Provider, Other Provi live Active Team Status: Inactive Member Role Status Dates Dr. Mita Sawyer MD Primary Care Provider, Referri ng Provider Active Hansa [place] ARTERIAL EMBALMER, ARTERIAL EMBALMER-C Attending Provider Active Team Status: Inactive Member Role Status Dates Dr. Mita Sawyer MD Primary Care Provider, Referri ng Provider Active Lluvia Madden NP-C Attending Provider Active Team Status: Inactive Member Role Status Dates Dr. Mita Sawyer MD Primary Care Provider Active Hansa [place] ARTERIAL EMBALMER, ARTERIAL EMBALMER-C Attending Provider, Referring Provider Active Team Status: Active Member Role/Relationship Status Dates Dr. Mita Sawyer MD Primary Care Provider Active Team Status: Inactive Member Role/Relationship Status Dates Dr. Mita Sawyer MD Primary Care Provider Active Start: November 29, 2024 End: November 29, 2024 Dr. Mita Sawyer MD Referring Provider Active Start: November 29, 2024 End: November 29, 2024 Jeanette GRAYSON, PA Attending Provider Active Start: November 29, 2024 End: November 29, 2024 Team Status: Inactive Member Role/Relationship Status Dates Dr. Mita Sawyer MD Primary Care Provider Active Start: March 10, 2025 End: March 10, 2025 Dr. Mita Sawyer MD Attending Provider Active Start: March 10, 2025 End: March 10, 2025 Dr. Mita Sawyer MD Referring Provider Active Start: March 10, 2025 End: March 10, 2025 Team Status: Inactive Member Role/Relationship Status Dates Dr. Mita Sawyer MD Primary Care Provider Active Start: March 11, 2025 End: March 11, 2025 Dr. Mita Sawyer MD Attending Provider Active Start: March 11, 2025 End: March 11, 2025 Dr. Mita Sawyer MD Referring Provider Active Start: March 11, 2025 End: March 11, 2025 FOR RECORDS PERTAINING TO PATIENTS WHO ARE [...] BE BASED ON THE PRIMARY CLINICAL RECORDS. [facility] provides no warranty or guarantee of the accuracy or completeness of information in this document.
== END | disposition home or self-care (01) ==
LOC: US 17:34
PROVIDERS: PCP Internal Medicine; Referring Provider Nurse Practitioner Women's Health; Visit Provider Nurse Practitioner Women's Health
DX: R10.2 Pelvic and perineal pain (principal)
CPT/HCPCS: 76830